=== PATIENT | female | born 1960 | race Two or more races ===

== ENCOUNTER 2018-11-26 06:34 | Inpatient (IN) | payer MEDICAID, OTHER ==
[~2018-11-26] VITALS: Ht 162.6 cm; Wt 142.9 kg
--- NOTE | 2018-11-26 06:35 | NUR ---
PT BIB RA. COMP OF HAVING LOW "BLOOD SUGAR, <20 NOTED BY RA". PT ARRIVED TO FACILITY WITH BS OF 69. MD MADE AWARE. PT AOX4. AWARE OF SAFETY NEEDS. AWAITING MD BURKS.
[2018-11-26] MEDS ORDERED: IV D5/0.45 NACL 500 ML IV ONE (07:00)
[2018-11-26 07:18] LABS: BASOPHILS % (AUTO) 0.2 % (0.0-2.0); EOSINOPHILS % (AUTO) 5.6 % (0.0-6.0); HEMATOCRIT 27 % (33-45); HEMOGLOBIN 9.1 g/dL (11.5-14.8); LYMPHOCYTES # (AUTO) 0.7 /CMM (0.8-4.8); LYMPHOCYTES % (AUTO) 12.6 % (20.0-44.0); MEAN CORPUSCULAR HGB CONC 34 g/dl (31.0-36.0); MEAN CORPUSCULAR VOLUME 93 fL (82-100); MONOCYTES # (AUTO) 0.3 /CMM (0.1-1.30); MONOCYTES % (AUTO) 5.7 % (2.0-12.0); NEUTROPHILS # (AUTO) 4.2 /CMM (1.8-8.9); NEUTROPHILS % (AUTO) 75.9 % (43.0-81.0); PLATELET COUNT (AUTO) 121 /CMM (150-450); WHITE BLOOD COUNT (AUTO) 5.6 K/uL (4.3-11.0)
[2018-11-26 07:26] LABS: APPEARANCE,URINE SL CLOUDY (CLEAR); BILIRUBIN,URINE NEGATIVE (NEGATIVE); BLOOD, URINE TRACE-INTA Ery/uL (NEGATIVE); COLOR,URINE YELLOW (YELLOW); KETONES,URINE NEGATIVE (NEGATIVE); LEUKOCYTE ESTERASE ,URINE 1+ (NEGATIVE); NITRITE, URINE POSITIVE (NEGATIVE); PROTEIN,URINE 2+ mg/dl (NEGATIVE); UGLUCOSE NEGATIVE (NEGATIVE); UROBILINOGEN,URINE 0.2 EU/dL (0.2)
[2018-11-26 07:27] LABS: CREATININE 3.9 mg/dL (0.6-1.3); POTASSIUM 3.9 mmol/L (3.5-5.1)
[2018-11-26] MEDS ORDERED: IV NS 0.9% 1,000 ML BAG IV ONE (07:30)
[2018-11-26] MEDS ORDERED: VANCOMYCIN 1 GM in IV D5W 250 ML IV ONE (07:30)
[2018-11-26] MEDS ORDERED: CEFTRIAXONE 1GM BAG (ER ONLY) 1 GM/50 ML PIGGYBACK IV ONE (07:30)
[2018-11-26 07:33] LABS: ALBUMIN 2.6 g/dL (3.4-5.0); BILIRUBIN,DIRECT 0.2 mg/dL (0.0-0.2); BILIRUBIN,TOTAL 0.3 mg/dL (0.2-1.0); TOTAL PROTEIN, SERUM 7.2 g/dL (6.4-8.2)
--- NOTE | 2018-11-26 07:38 | NUR ---
called [facility] for admission.
[2018-11-26] MEDS ORDERED: HYDR-4076 PO (07:39)
[2018-11-26] MEDS ORDERED: INSU100V11 SQ (07:39)
[2018-11-26] MEDS ORDERED: MAGN400O6 PO (07:39)
[2018-11-26] MEDS ORDERED: DOCU-141 PO (07:39)
[2018-11-26] MEDS ORDERED: NA P133E RC (07:39)
[2018-11-26] MEDS ORDERED: ERGO500014 PO (07:39)
[2018-11-26] MEDS ORDERED: FAMO-131 PO (07:39)
[2018-11-26] MEDS ORDERED: ESCI10TA PO (07:39)
[2018-11-26] MEDS ORDERED: OLME1TAB34 PO (07:39)
[2018-11-26] MEDS ORDERED: ENOX40DI SQ (07:39)
[2018-11-26] MEDS ORDERED: GLIM4TAB2 PO (07:39)
[2018-11-26] MEDS ORDERED: HUM10VIA SQ (07:39)
[2018-11-26] MEDS ORDERED: GABA-532 PO (07:39)
[2018-11-26] MEDS ORDERED: CEFTRIAXONE 1GM BAG (ER ONLY) 50 ML IV ONE (07:40)
[2018-11-26 07:43] LABS: BACTERIA,URINE 2+ /HPF (None Seen)
--- NOTE | 2018-11-26 08:00 | NUR ---
BS CHECEKED 59, DR. JIMENEZ MADE AWARE AND ORDERED D10 IV, STOP D5 1/2 NS.
--- NOTE | 2018-11-26 08:02 | NUR ---
CALLED NURSING SANITATION OFFICER FOR [facility]
--- NOTE | 2018-11-26 08:21 | NUR ---
SPOKE WITH JORDAN LOGISTICIAN REGARDING ADMISSION
[2018-11-26] MEDS ORDERED: DEXTROSE 10% IN WATER 250 ML BAG IV ONE (08:30)
[2018-11-26] MEDS ORDERED: Sodium Chloride 154 MEQ in IV 10% DEXTROSE 1,000 ML IV PRN (08:30)
--- NOTE | 2018-11-26 08:30 | NUR ---
BED CHANGED TO
--- NOTE | 2018-11-26 08:41 | NUR ---
PAGED DR PRO FOR ADMISSION
--- NOTE | 2018-11-26 08:45 | NUR ---
BS CHECEKED 60, DR. JIMENEZ MADE AWARE.
--- NOTE | 2018-11-26 09:21 | NUR ---
PAGED DR PRO, X2
--- NOTE | 2018-11-26 09:41 | NUR ---
PAGED DR PRO X3
--- NOTE | 2018-11-26 09:48 | NUR ---
YENIFER POLANCO SKATING RINK MANAGER TO ADMIT D/T NO RESPONSE FROM DR PRO FOR OVER AN HOUR, PER DR JIMENEZ. SHERRI AT BEDSIDE
--- NOTE | 2018-11-26 10:16 | NUR ---
transferred patient to [facility] to room 208-2. Bhavani home care manager rn and received the patient for afsaneh. In no apparent distress noted.
[2018-11-26] MEDS ORDERED: ACETAMINOPHEN 325 MG TABLET PO PRN (11:00)
[2018-11-26] MEDS: DOCUSATE SODIUM 100 MG CAPSULE PO SCH ×2 (11:00→17:00)
[2018-11-26] MEDS ORDERED: DEXTROSE 50%-WATER 50 ML DISP.SYRIN IV PRN (11:00)
[2018-11-26] MEDS ORDERED: MAGNESIUM HYDROXIDE 30 ML UDC PO PRN (11:00)
[2018-11-26] MEDS ORDERED: CLONIDINE HCL 0.1 MG TABLET PO PRN (11:00)
[2018-11-26] MEDS ORDERED: ENOXAPARIN SODIUM 40 MG/0.4 ML DISP.SYRIN SQ SCH (11:00)
[2018-11-26 11:21] VITALS: BP 150/79
[2018-11-26] MEDS: ESCITALOPRAM OXALATE (10 MG) 10 MG TABLET PO SCH (11:39)
[2018-11-26] MEDS: FAMOTIDINE (20 MG) 20 MG TABLET PO SCH ×2 (11:39→21:21)
[2018-11-26] MEDS: GABAPENTIN 100 MG CAPSULE PO SCH ×3 (11:40→17:03)
[2018-11-26] MEDS: AMLODIPINE BESYLATE 10 MG TABLET PO SCH (11:41)
[2018-11-26] MEDS: hydrALAZINE HCL 25 MG TABLET PO SCH (11:41)
[2018-11-26] MEDS: HEPARIN SODIUM, PORCINE 5000 UNITS/1 ML VIAL SQ SCH ×2 (11:43→21:26)
[2018-11-26] MEDS: IV D5/0.45 NACL 1,000 ML IV PRN (11:59)
[2018-11-26] MEDS: BLOOD SUGAR DIAGNOSTIC 1 EACH STRIP IN SCH ×3 (12:07→21:21)
[2018-11-26] MEDS: INSULIN REGULAR, HUMAN 100 UNIT/ML 3 ML VIAL SQ PRN (12:13)
[2018-11-26 16:08] VITALS: BP 129/56
--- NOTE | 2018-11-26 17:09 | NUR ---
MS/RN NOTE BLOOD SUGAR 44. ORANGE JUICE GIVEN. WILL CHECK AGAIN.
--- NOTE | 2018-11-26 17:30 | NUR ---
MS/RN NOTE BLOOD SUGAR IS 93. THE PATIENT STARTED TO EAT DINNER.
--- NOTE | 2018-11-26 18:22 | NUR ---
MS/RN CLOSING NOTE THE PATIENT ALERT AND ORIENTED X4. IN ROOM AIR AND OXYGEN SATURATION IN ROOM AIR AT 97%. DENIES PAIN. PATIENT IN NO APPARENT DISTRESS. LAC G 20 PATENT AND IV FLUID INFUSING WITH NO S/S INFILTRATION. CHRISTINE CATH DRAINING FREELY. NO BLADDER DISTENSION NOTED. BED LOW AND LOCKED. SIDE RAILS UP X3. CALL LIGHT WITHIN REACH. WILL ENDORSE TO FIRE OFFICIAL.
[2018-11-26 19:00] VITALS: BP 136/64
--- NOTE | 2018-11-26 19:25 | NUR ---
MS RN OPENING NOTES: RECEIVED PT ON ROOM AIR AND IS IN HIGH TOTH'S POSITION. PT A/OX4 WITH 3 FAMILY MEMBERS AT BEDSIDE. PT REQUESTING TO HAVE BLOOD SUGAR CHECKED AT THIS TIME. NO SOB NOTED. NO S/S OF DISTRESS. PT HAS IV AND IS BEING INFUSED WITH IV D51/2 NS AT 100ML/HR. PT HAS CHRISTINE CATH AND IS ATTACHED TO DRAINAGE BAG WITH YELLOW URINE DRAINING. BED KEPT IN LOW, LOCKED POSITION, AND SIDE RAILS X2UP. WILL CONTINUE TO MONITOR PT.
--- NOTE | 2018-11-26 22:00 | NUR ---
MS RN NOTES: PT OFFERED BED BATH. PT SAID SHE WOULD LIKE IT AT A LATER TIME.
[2018-11-27] VITALS (9 sets, daily range): BP systolic 131–157; BP diastolic 56–73
[2018-11-27] MEDS: IV D5/0.45 NACL 1,000 ML IV PRN ×2 (02:13→17:08)
--- NOTE | 2018-11-27 03:39 | NUR ---
MS RN NOTES: PT REQUESTED TO HAVE BLOOD SUGAR CHECKED AT THIS TIME AFTER BEING REPOSITIONED.
[2018-11-27] MEDS: BLOOD SUGAR DIAGNOSTIC 1 EACH STRIP IN SCH ×3 (06:30→18:43)
[2018-11-27 06:50] LABS: BASOPHILS % (AUTO) 0.6 % (0.0-2.0); EOSINOPHILS % (AUTO) 7.5 % (0.0-6.0); HEMATOCRIT 23 % (33-45); HEMOGLOBIN 7.8 g/dL (11.5-14.8); LYMPHOCYTES # (AUTO) 1.7 /CMM (0.8-4.8); LYMPHOCYTES % (AUTO) 31.7 % (20.0-44.0); MEAN CORPUSCULAR HGB CONC 34 g/dl (31.0-36.0); MEAN CORPUSCULAR VOLUME 93 fL (82-100); MONOCYTES # (AUTO) 0.4 /CMM (0.1-1.30); NEUTROPHILS # (AUTO) 2.8 /CMM (1.8-8.9); NEUTROPHILS % (AUTO) 52.2 % (43.0-81.0); PLATELET COUNT (AUTO) 107 /CMM (150-450); RED BLOOD CELL COUNT(AUTO) 2.49 MIL/uL (4.0-5.2); WHITE BLOOD COUNT (AUTO) 5.4 K/uL (4.3-11.0)
--- NOTE | 2018-11-27 06:57 | NUR ---
MS RN NOTES: PT OFFERED BED BATH AGAIN THIS AM. PT DOES NOT WANT IT AT THIS TIME. WOULD LIKE IT AT A LATER TIME DURING THE DAY.
[2018-11-27 06:59] LABS: ALBUMIN 2.1 g/dL (3.4-5.0); BILIRUBIN,TOTAL 0.3 mg/dL (0.2-1.0); CALCIUM, SERUM 7.5 mg/dL (8.5-10.1); CREATININE 4.1 mg/dL (0.6-1.3); POTASSIUM 4.9 mmol/L (3.5-5.1); TOTAL PROTEIN, SERUM 6.2 g/dL (6.4-8.2)
[2018-11-27] MEDS ORDERED: CEFTRIAXONE 1 G in IV D5W 50 ML IV SCH (07:00)
--- NOTE | 2018-11-27 07:21 | NUR ---
MS RN CLOSING NOTES: ALL NEEDS WERE ATTENDED AND ANTICIPATED FOR. PT KEPT CLEAN, DRY, AND COMFORTABLE. PT ASLEEP AT THIS TIME. PT HAS IV AND IS BEING INFUSED WITH IV D51/2 NS AT 100ML/HR. BLOOD SUGAR THIS AM WAS 120. JUICES AT BEDSIDE. PT HAS CHRISTINE CATH AND IS ATTACHED TO DRAINAGE BAG WITH YELLOW URINE DRAINING. OUTPUT WAS 875ML. BED KEPT IN LOW, LOCKED POSITION, AND HIGH TOTH'S POSITION. ENDORSED TO AM NURSE FOR RENATO.
[2018-11-27] MEDS: AMLODIPINE BESYLATE 10 MG TABLET PO SCH (08:24)
[2018-11-27] MEDS: ESCITALOPRAM OXALATE (10 MG) 10 MG TABLET PO SCH (08:25)
[2018-11-27] MEDS: GABAPENTIN 100 MG CAPSULE PO SCH ×3 (08:25→16:35)
[2018-11-27] MEDS: hydrALAZINE HCL 25 MG TABLET PO SCH (08:25)
[2018-11-27] MEDS: DOCUSATE SODIUM 100 MG CAPSULE PO SCH ×2 (08:25→16:35)
[2018-11-27] MEDS: HEPARIN SODIUM, PORCINE 5000 UNITS/1 ML VIAL SQ SCH (08:32)
[2018-11-27] MEDS ORDERED: CEPH-570 PO (08:38)
[2018-11-27] MEDS ORDERED: LOSARTAN/HCTZ 50-12.5MG/ 1 EA TABLET PO SCH (09:00)
--- NOTE | 2018-11-27 16:50 | NUR ---
Patient is alert,current resides at [facility]. [place] spring encaser arranged for transfer back to [facility] today, knot picker cloth eta 7:45pm. trip# [phone] Jayaureliano. Family aware and agreed dc plan per nurse Addendum: 11/27/18 at 1652 by NATHAN MENSAH RN Amended: Links added.
--- NOTE | 2018-11-27 18:33 | NUR ---
MS/RN CLOSING NOTE THE PATIENT ALERT AND ORIENTED X4. IN ROOM AIR AND DENIES SOB. RESPIRATION REGULAR AND UNLABORED. OXYGEN SATURATION IN ROOM AIR AT 96%. DENIES PAIN AT THIS TIME. RFA G 18 PATENT AND D5 1/2 NORMAL SALINE INFUSING AT 100ML/HR AND NO S/S INFILTRATION NOTED. BED LOW AND LOCKED. SIDE RAILS UP X3. CALL LIGHT WITHIN REACH. WILL ENDORSE TO NIGHT SHITF.
--- NOTE | 2018-11-27 18:36 | NUR ---
MS/RN NOTE DISCHARGE EDUCATION IS PROVIDED TO THE PATIENT AND SHE VERBALIZED UNDERSTANDING. DAUGHTER WOODY IS AWARE.
--- NOTE | 2018-11-27 18:52 | NUR ---
MS/RN NOTE BLOOD SUGAR IS 232. NO INSULIN COVERAGE GIVEN PER PATIENT REQUEST.
--- NOTE | 2018-11-27 19:45 | NUR ---
REPORT GIVEN TO THE SHALLOT PACKER AT [facility] INFORMED HIM THAT I WOULD DO HER HS BLOOD SUGAR AND GIVE HER HER COVERAGE. PATIENT IS ALERT AND ORIENTATED PLAYING A GAME ON HER NOTE PAD. SKIN WARM AND DRY SMILING AND IN GOOD SPIRITS.
[2018-11-27] MEDS: INSULIN REGULAR, HUMAN 100 UNIT/ML 3 ML VIAL SQ PRN (20:05)
--- NOTE | 2018-11-27 21:15 | NUR ---
DISCHARGE NOTES: AMBULANCE HERE TO P/U PATIENT AND TRANSFER TO [facility] ALERT AND ORIENTATED SPEECH CLEAR BLOOD SUGAR AT 8PM WAS 264 6 UNITS INSULIN GIVEN PER SCALE. NOTE PAD TAILINGS DAM PUMPER PHONE AND COLOGNE PLACED IN TUB AND GIVEN TO THE DRIVERS.
[2018-11-28] MEDS ORDERED: ERGOCALCIFEROL (VITAMIN D 2) 50,000 UNIT CAPSULE PO SCH (11:00)
== END 2018-11-27 21:15 | DRG 420 ==
LOC: ER 06:37 → MEDSG2 08:59
PROVIDERS: ADMIT Internal Medicine; ATTEND Internal Medicine
PROC: 30233N1 Transfusion of Nonautologous Red Blood Cells into Peripheral Vein, Percutaneous Approach (ICD-10-PCS; principal; 2018-11-27)
DX: E11.649 Type 2 diabetes mellitus with hypoglycemia without coma (principal); G93.41 Metabolic encephalopathy; N18.4 Chronic kidney disease, stage 4 (severe); E11.22 Type 2 diabetes mellitus with diabetic chronic kidney disease; I12.9 Hypertensive chronic kidney disease with stage 1 through stage 4 chronic kidney disease, or unspecified chronic kidney disease; N39.0 Urinary tract infection, site not specified; E78.5 Hyperlipidemia, unspecified; E66.9 Obesity, unspecified; K21.9 Gastro-esophageal reflux disease without esophagitis; Z68.43 Body mass index [BMI] 50.0-59.9, adult; Z79.4 Long term (current) use of insulin; B95.62 Methicillin resistant Staphylococcus aureus infection as the cause of diseases classified elsewhere; Z74.01 Bed confinement status; E44.1 Mild protein-calorie malnutrition; D63.1 Anemia in chronic kidney disease
CPT/HCPCS: 36415; 71045-TC; 80048-TC; 80053-TC; 80076-TC; 81000-TC; 82962-TC; 83605-TC; 84484-TC; 85025-TC; 85730-TC; 86850-TC; 86921-TC; 87040-TC; 87081-TC; 87086-TC; G0378; J0696; J1644; J1815; J3370; J3490; J7030; J7050; J7060; P9016-BL

== ENCOUNTER 2018-12-02 09:13 | Inpatient (IN) | payer MEDICAID ==
[~2018-12-02] VITALS: Ht 165.1 cm; Wt 135.2 kg
[2018-12-02] VITALS (24 sets, daily range): BP systolic 93–132; BP diastolic 41–68
[~2018-12-02 09:13] MED LIST: CEPH-570 PO; DOCU-141 PO; ENOX40DI SQ; ERGO500014 PO; ESCI10TA PO; FAMO-131 PO; GABA-532 PO; HYDR-4076 PO; INSU100V11 SQ; MAGN400O6 PO; NA P133E RC; OLME1TAB34 PO
--- NOTE | 2018-12-02 09:25 | NUR ---
LABS DRAWNED AND URINE SPECIMEN COLLECTED AND SENT TO LAB.
[2018-12-02 09:28] LABS: BASOPHILS # (AUTO) 0.1 /CMM (0.0-0.2); EOSINOPHILS % (AUTO) 6.2 % (0.0-6.0); HEMATOCRIT 28 % (33-45); HEMOGLOBIN 9.2 g/dL (11.5-14.8); LYMPHOCYTES # (AUTO) 1.6 /CMM (0.8-4.8); LYMPHOCYTES % (AUTO) 24.1 % (20.0-44.0); MEAN CORPUSCULAR HGB CONC 33 g/dl (31.0-36.0); MEAN CORPUSCULAR VOLUME 94 fL (82-100); MONOCYTES # (AUTO) 0.6 /CMM (0.1-1.30); MONOCYTES % (AUTO) 8.8 % (2.0-12.0); NEUTROPHILS # (AUTO) 4.1 /CMM (1.8-8.9); NEUTROPHILS % (AUTO) 59.9 % (43.0-81.0); PLATELET COUNT (AUTO) 181 /CMM (150-450); RED BLOOD CELL COUNT(AUTO) 2.97 MIL/uL (4.0-5.2); WHITE BLOOD COUNT (AUTO) 6.8 K/uL (4.3-11.0)
[2018-12-02] MEDS ORDERED: MEROPENEM 1 G in IV NS 0.9% 100 ML IV ONE (09:30)
[2018-12-02] MEDS ORDERED: IV NS 0.9% 1,000 ML BAG IV ONE (09:30)
--- NOTE | 2018-12-02 09:30 | NUR ---
MAYUR RA 102 from [facility] ALOC "Apparently AA usually LKWT was yesterday today not responding as much [id number]-178". RR is even and unlabored with and noted. Skin is warm and dry. came in with warren catheter in place. Placed on the monitor. Dr Olvera at BS for eval.
[2018-12-02] MEDS ORDERED: ACET-868 PO (09:42)
[2018-12-02] MEDS ORDERED: CEPH-570 PO (09:42)
[2018-12-02] MEDS ORDERED: BISA10SU8 RC (09:42)
[2018-12-02] MEDS ORDERED: HYDR-4384 PO (09:42)
[2018-12-02] MEDS ORDERED: AMIN30LI2 PO (09:42)
[2018-12-02] MEDS ORDERED: INSU100V7 SQ (09:42)
[2018-12-02] MEDS ORDERED: MORP15TA7 PO (09:42)
[2018-12-02] MEDS ORDERED: GABA-534 PO (09:42)
[2018-12-02 09:44] LABS: APPEARANCE,URINE TURBID (CLEAR); BILIRUBIN,URINE NEGATIVE (NEGATIVE); BLOOD, URINE 1+ Ery/uL (NEGATIVE); COLOR,URINE YELLOW (YELLOW); KETONES,URINE NEGATIVE (NEGATIVE); LEUKOCYTE ESTERASE ,URINE 3+ (NEGATIVE); NITRITE, URINE NEGATIVE (NEGATIVE); PROTEIN,URINE 2+ mg/dl (NEGATIVE); UGLUCOSE NEGATIVE (NEGATIVE); UROBILINOGEN,URINE 0.2 EU/dL (0.2)
--- NOTE | 2018-12-02 09:46 | NUR ---
RADIOLOGY AT BEDSIDE FOR XRAY.
[2018-12-02 09:53] LABS: ALBUMIN 2.5 g/dL (3.4-5.0); BILIRUBIN,DIRECT 0.1 mg/dL (0.0-0.2); BILIRUBIN,TOTAL 0.4 mg/dL (0.2-1.0); CREATININE 5.9 mg/dL (0.6-1.3); TOTAL PROTEIN, SERUM 7.8 g/dL (6.4-8.2)
[2018-12-02 09:56] LABS: POTASSIUM 6.4 mmol/L (3.5-5.1)
[2018-12-02] MEDS ORDERED: DEXTROSE 50%-WATER 50 ML DISP.SYRIN IV ONE (10:00)
[2018-12-02] MEDS ORDERED: SODIUM BICARBONATE SYR 50 MEQ/50 ML DISP.SYRIN IV ONE (10:00)
[2018-12-02] MEDS ORDERED: INSULIN REGULAR, HUMAN 100 UNIT/ML 10 ML VIAL IV ONE (10:00)
[2018-12-02] MEDS ORDERED: ALBUTEROL FS 2.5 MG/3 ML VIAL.NEB NEB ONE (10:00)
[2018-12-02] MEDS ORDERED: INSULIN REGULAR, HUMAN 100 UNIT/ML 10 ML VIAL ONE (10:05)
[2018-12-02] MEDS ORDERED: DEXTROSE 50%-WATER 50 ML DISP.SYRIN ONE (10:05)
[2018-12-02] MEDS ORDERED: SODIUM BICARBONATE SYR 50 MEQ/50 ML DISP.SYRIN ONE (10:05)
[2018-12-02] MEDS ORDERED: ALBUTEROL FS 2.5 MG/3 ML VIAL.NEB ONE (10:16)
[2018-12-02 10:17] LABS: BACTERIA,URINE 2+ /HPF (None Seen); COARSE GRANULAR CASTS,URINE Few /LPF (None Seen); SQUAMOUS EPITHELIAL CELL,UR Many /HPF (None Seen); WBC,URINE 21-50 /HPF (0-3)
--- NOTE | 2018-12-02 10:29 | NUR ---
PT IS WHEELED TO CT SCAN VIA [facility].
[2018-12-02 10:34] LABS: ABG OXYGEN SATURATION 95.9 % (92.0-98.5); ABG PCO2 46.6 mmHg (35.0-45.0); ABG PH 7.196 (7.350-7.450); ABG PO2 95.7 mmHg (75.0-100.0); AaDO2 172.1 mmHg; COHb 1.3 % (0.5-1.5); MetHb 0.6 % (0.0-1.5); O2Hb 94.1 % (94.0-97.0); SITE, ABG Left Radial; VENT MODE, BG NASAL CANNULA
--- NOTE | 2018-12-02 11:35 | NUR ---
DR. PRO AT BEDSIDE FOR EVAL.
--- NOTE | 2018-12-02 11:35 | NUR ---
PT IS ASSIGNED TO [facility]#: [id number]
--- NOTE | 2018-12-02 11:40 | NUR ---
GAVE REPORT TO DAVIS PHAN FOR RENATO.
--- NOTE | 2018-12-02 11:44 | NUR ---
REPORT GIVEN TO DAVIS SHEPARD FOR RENATO.
--- NOTE | 2018-12-02 11:44 | NUR ---
Magan williamson in ED - 12/02/18 at 1145 by RATNA GIVE CHRISTOFERTE 60GM VIA [place] NOW VERBAL ORDERED.
--- NOTE | 2018-12-02 11:45 | NUR ---
GIVE KAYEXELATE 60GM VIA [place] NOW VERBAL ORDERED BY DR. PRO.
[2018-12-02] MEDS ORDERED: SODIUM POLYSTYRENE SULFONATE 15 G/60 ML BOTTLE ONE ×2 (11:48→20:04)
[2018-12-02] MEDS ORDERED: DEXTROSE 50%-WATER 50 ML DISP.SYRIN IV PRN (12:00)
[2018-12-02] MEDS ORDERED: VANCOMYCIN 1.25 GM in IV D5W 500 ML IV SCH (12:00)
[2018-12-02] MEDS ORDERED: SODIUM POLYSTYRENE SULFONATE 15 G/60 ML BOTTLE RC ONE ×2 (12:00→20:00)
[2018-12-02] MEDS ORDERED: FEE PK DOSING 1 MIN EA MC ONE (12:05)
--- NOTE | 2018-12-02 12:06 | NUR ---
NEW ORDER FROM DR. PRO TO CANCEL BLOOD TRANSFUSION ORDER AND RELATED ORDER. PRIMARY NURSE MADE AWARE.
--- NOTE | 2018-12-02 12:11 | NUR ---
PT. IS OBTUNDED, PLACED HER ON BIPAP DUE TO INCREASED WOB WITH PARAMETERS BELOW PER DR. PRO: IPAP 15 EPAP 5 RATE 12 FIO2 28% 10 MG ALBUTEROL GIVEN. BREATH SOUNDS FROM DIMINISHED + WHEEZING TO EXPIRATORY WHEEZING. AUBREY @ BEDSIDE. Addendum: 12/02/18 at 1218 by KWAKU BEDOYA RT Amended: Links added.
--- NOTE | 2018-12-02 12:30 | NUR ---
RN ADMITTING NOTES: Rec'd call from [facility] RESIDENTIAL GLAZIER. Pt transferred via gurney, admitted to room 258. Pt is lethargic, arousable to tactile stimuli. Placed on BIPAP per RT, sating at 98%. SR on telemonitor. Has 2 IV line access L AC G18 & R hand G20, both flushing well w/ no s/sx of infection/infiltration noted. Skin assessment done, wound photos taken & placed in the chart. Initial wound care done. Wound care consult ordered. Pt placed on BOBBY mattress. Has IFC patent & intact, noted 100cc of yellowish UOP (bag changed to new one). BM x1 s/p kayexalate from ER. Noted Dr. Overton's orders & carried out. Family came & updated about pt status. Safety precaution in place. Bed kept low & in locked pos. Call light w/in reach. Will cont to monitor & attend pt needs.
--- NOTE | 2018-12-02 12:38 | NUR ---
PT. USED SAME BIPAP MACHINE, PLUGGED INTO RED OUTLET WITH ALARMS ON AND FUNCTIONING. AUBREY @ BEDSIDE. Addendum: 12/02/18 at 1240 by KWAKU BEDOYA RT Amended: Links added.
[2018-12-02] MEDS: NS 0.9% IV PRN ×2 (13:06→23:17)
[2018-12-02] MEDS: SODIUM ACETATE IV PRN ×2 (13:06→23:17)
[2018-12-02] MEDS: BLOOD SUGAR DIAGNOSTIC 1 EACH STRIP IN SCH ×3 (13:09→23:18)
[2018-12-02] MEDS: HEPARIN SODIUM, PORCINE 5000 UNITS/1 ML VIAL SQ SCH ×2 (13:10→23:43)
[2018-12-02] MEDS: INSULIN REGULAR, HUMAN 100 UNIT/ML 3 ML VIAL SQ PRN ×4 (13:11→23:21)
[2018-12-02] MEDS: Z GUARD REMEDY 4 OZ OINT TP PRN (17:17)
[2018-12-02 17:29] LABS: ALBUMIN 2.4 g/dL (3.4-5.0); BILIRUBIN,TOTAL 0.4 mg/dL (0.2-1.0); CALCIUM, SERUM 7.8 mg/dL (8.5-10.1); TOTAL PROTEIN, SERUM 7.3 g/dL (6.4-8.2)
[2018-12-02 17:30] LABS: APPEARANCE,URINE CLOUDY (CLEAR); BILIRUBIN,URINE NEGATIVE (NEGATIVE); BLOOD, URINE 2+ Ery/uL (NEGATIVE); COLOR,URINE YELLOW (YELLOW); KETONES,URINE NEGATIVE (NEGATIVE); LEUKOCYTE ESTERASE ,URINE NEGATIVE (NEGATIVE); NITRITE, URINE NEGATIVE (NEGATIVE); PROTEIN,URINE 2+ mg/dl (NEGATIVE); UGLUCOSE NEGATIVE (NEGATIVE); UROBILINOGEN,URINE 0.2 EU/dL (0.2)
[2018-12-02 17:39] LABS: PHOSPHORUS 9.9 mg/dL (2.5-4.9)
[2018-12-02 17:46] LABS: BACTERIA,URINE None seen /HPF (None Seen); SQUAMOUS EPITHELIAL CELL,UR Few /HPF (None Seen); WBC,URINE 0-2 /HPF (0-3)
[2018-12-02 17:47] LABS: URINE AMORPHOUS URATE Moderate /HPF (None Seen)
[2018-12-02 18:07] LABS: CREATININE, URINE 133.2 MG/DL (30.0-125.0); URINE TOTAL PROTEIN 191.3 mg/dL (0-11.9)
[2018-12-02] MEDS: INSULIN GLARGINE, 100 UNIT/ML CARTRIDGE SQ SCH (18:08)
[2018-12-02 18:31] LABS: EOSINOPHIL,URINE None Seen
--- NOTE | 2018-12-02 19:00 | NUR ---
RN CLOSINg NOTES: Pt remains lethargic, still arousable to tactile stimuli. Tolerated BIPAP settings, no SOB. Pt still SR on telemonitor. 2 IV line access L AC G18 w/ Na Acetate x 100cc/hr & R hand G20, kept patent & intact w/ no s/sx of infection/infiltration noted. FC kept patent & intact draining to BSB. Relayed latest BMP results to Dr. Overton w/ orders to give early dose of Lantus 10u that was supposedly scheduled at 10pm & give Kayexalate 60gms rectal x 1. Per MD may give insulin sliding scale even if pt is NPO. Safety precaution kept in place. Bed kept low & in locked pos. Call light w/in reach. Endorsed to PM RN for RENATO.
--- NOTE | 2018-12-02 20:00 | NUR ---
SOFTWARE TEST DEVELOPER - NOTES - Pt remains lethargic, still arousable to tactile stimuli, pt yells when turned. Tolerated BIPAP settings, no SOB. Pt still SR on telemonitor. 2 IV line access L AC G18 w/ Na Acetate x 100cc/hr & R hand G20, kept patent & intact w/ no s/sx of infection/infiltration noted. FC kept patent & intact draining to BSB. Safety precaution kept in place. Bed kept low & in locked position. Call light w/in reach.
[2018-12-03] VITALS (65 sets, daily range): BP systolic 89–163; BP diastolic 39–83
[2018-12-03 05:06] LABS: BASOPHILS # (AUTO) 0.1 /CMM (0.0-0.2); BASOPHILS % (AUTO) 0.8 % (0.0-2.0); EOSINOPHILS % (AUTO) 4.7 % (0.0-6.0); HEMATOCRIT 27 % (33-45); HEMOGLOBIN 8.9 g/dL (11.5-14.8); LYMPHOCYTES # (AUTO) 1.2 /CMM (0.8-4.8); LYMPHOCYTES % (AUTO) 17.7 % (20.0-44.0); MEAN CORPUSCULAR HGB CONC 33 g/dl (31.0-36.0); MEAN CORPUSCULAR VOLUME 94 fL (82-100); MONOCYTES # (AUTO) 0.6 /CMM (0.1-1.30); MONOCYTES % (AUTO) 8.8 % (2.0-12.0); NEUTROPHILS # (AUTO) 4.5 /CMM (1.8-8.9); PLATELET COUNT (AUTO) 167 /CMM (150-450); RED BLOOD CELL COUNT(AUTO) 2.86 MIL/uL (4.0-5.2); WHITE BLOOD COUNT (AUTO) 6.6 K/uL (4.3-11.0)
[2018-12-03 05:07] LABS: ALBUMIN 2.4 g/dL (3.4-5.0); BILIRUBIN,TOTAL 0.4 mg/dL (0.2-1.0); CALCIUM, SERUM 7.9 mg/dL (8.5-10.1); CREATININE 6.1 mg/dL (0.6-1.3); MAGNESIUM 2.1 mg/dL (1.8-2.4); TOTAL PROTEIN, SERUM 7.3 g/dL (6.4-8.2)
[2018-12-03 05:41] LABS: POTASSIUM 6.3 mmol/L (3.5-5.1)
--- NOTE | 2018-12-03 05:51 | NUR ---
RT PT RECEIVED ON BIPAP WITH NOTED SETTING. PT TOLERATING SETTING WELL. NO SOB OR RESP DISTRESS NOTED ON SHIFT. PT STILL REMAINS ALTERED. CONTINUE CURRENT CARE PLAN AND MONITOR FOR ANY CHANGES. Addendum: 12/03/18 at 0552 by YUE BRITT RT Amended: Links added.
[2018-12-03 06:13] LABS: PHOSPHORUS 10.6 mg/dL (2.5-4.9)
[2018-12-03] MEDS: BLOOD SUGAR DIAGNOSTIC 1 EACH STRIP IN SCH ×3 (06:26→17:43)
[2018-12-03] MEDS ORDERED: FUROSEMIDE 40 MG/4 ML VIAL IV ONE (06:30)
[2018-12-03] MEDS ORDERED: IV 1/2NS 1000 ML 500 ML IV ONE (06:30)
[2018-12-03 06:33] LABS: ABG BASE EXCESS -11.6 mmol/L; ABG OXYGEN SATURATION 95.4 % (92.0-98.5); ABG PCO2 52.4 mmHg (35.0-45.0); ABG PH 7.133 (7.350-7.450); ABG PO2 89.3 mmHg (75.0-100.0); AaDO2 48.5 mmHg; COHb 0.3 % (0.5-1.5); MetHb 0.9 % (0.0-1.5); O2Hb 94.3 % (94.0-97.0); PEEP,BG 5 cm H2O; SITE, ABG Left Radial; VENT MODE, BG ST 15/5 R12 28%
--- NOTE | 2018-12-03 06:39 | NUR ---
dr sierra notified of critical lab values, new orders received and carried out. bipap rate changed from 12 to 20 for high co2 on abg
--- NOTE | 2018-12-03 08:27 | NUR ---
Dr. Hobbs is here to see pt, new abg obtained. bi-pap rate changed to 25/5 back up of 20. will obtain new abg in 45 min.
[2018-12-03 08:30] LABS: ABG BASE EXCESS -11.9 mmol/L; ABG OXYGEN SATURATION 94.2 % (92.0-98.5); ABG PCO2 51.3 mmHg (35.0-45.0); ABG PH 7.132 (7.350-7.450); ABG PO2 80.7 mmHg (75.0-100.0); AaDO2 58.4 mmHg; COHb 0.6 % (0.5-1.5); MetHb 0.7 % (0.0-1.5); SITE, ABG Right Radial
[2018-12-03 09:23] LABS: ABG BASE EXCESS -10.9 mmol/L; ABG OXYGEN SATURATION 95.7 % (92.0-98.5); ABG PCO2 53.8 mmHg (35.0-45.0); ABG PH 7.137 (7.350-7.450); ABG PO2 91.9 mmHg (75.0-100.0); AaDO2 44.3 mmHg; COHb 0.3 % (0.5-1.5); MetHb 0.6 % (0.0-1.5); O2Hb 94.8 % (94.0-97.0); SITE, ABG Left Radial
--- NOTE | 2018-12-03 09:42 | NUR ---
WOUND CARE CONSULT: PT UNSTABLE AT THIS TIME AND WILL BE INTUBATED PER NURSING STAFF. WILL SEE PT PT CONDITION PERMITS. [facility] BED ON ORDER. CURRENT AMINA SCORE IS 9.
--- NOTE | 2018-12-03 09:50 | NUR ---
FAMILY NOTIFIED ABOUT NEED FOR INTUBATION, CONSENT FOR PICC LINE OBTAINED VIA PHONE FROM DAUGHTER EDUARDA.
--- NOTE | 2018-12-03 10:05 | NUR ---
PT INTUBATED AT [address] SANDERS 30 MG OF ETOMIDATE USED. STAT CXR ORDERED.
--- NOTE | 2018-12-03 10:05 | NUR ---
RT DR. ANTUNEZ UNABLE TO INTUBATED SO ANESTHESIA MD WAS CALLED. PT INTUBATED BY ANESTHESIA MD WITH A 7.5 ETT SECURED AT 23CM AT THE LIP LINE. EQUAL BILATERAL BREATHE SOUNDS AND CHEST RISE NOTED. POSITIVE CO2 COLOR CHANGE. CREDIT PORTFOLIO ADVISOR CUFF PRESSURE NOTED. VENT ALARMS ARE SET AND AUDIBLE WITH BVM BY BEDSIDE. VENT IS PLUGGED INTO RED OUTLET. SX'D MODERATE THICK PALE YELLOW SECRETIONS. PT APPEARS TO BE COMFORTABLE AT THIS TIME, WILL CONTINUE TO MONITOR. Addendum: 12/03/18 at 1034 by WILLIAN MARCOS RT Amended: Links added.
--- NOTE | 2018-12-03 10:15 | NUR ---
ETT PLACEMENT CONFIRMED BY CXR. T.7 AT 23 CM. VENT SETTINGS AC 18, 650, 100%, PEEP OF 5. OGT # 16. PLACED, CONFIRMED BY CXR.
[2018-12-03] MEDS: ALBUTEROL HALF STRENGTH 1.25 MG/3 ML VIAL.NEB NEB SCH ×5 (10:30→22:52)
[2018-12-03] MEDS ORDERED: PROPOFOL 100 ML IV PRN (10:30)
[2018-12-03] MEDS ORDERED: SODIUM ACETATE IV PRN ×2 (10:30→11:00)
[2018-12-03] MEDS ORDERED: NS 0.9% IV PRN ×2 (10:30→11:00)
[2018-12-03] MEDS ORDERED: IV NS 0.9% 500 ML IV ONE (11:00)
--- NOTE | 2018-12-03 11:00 | NUR ---
RECEIVED CARE OF PATIENT FROM RN MICHEL. PATIENT INTUBATED THIS AM AROUND 10AM WITH VENT SETTINGS ORDERED AND TOLERATING WELL. ETT WITH OGT PLACED. PATIENT ALTERED AND MOVES TO LOCALIZED PAIN NO S/S DISCOMFORT AT THIS TIME; WILL HOLD OFF ON DIPRIVAN PATIENT TOLERATING VENT AND NO S/S PAIN. CHRISTINE CATH IN PLACE PER RN MINIMAL OUTPUT AND WITH BLADDER SCAN NO MORE THAN 40 MLS NOTED IN BLADDER; DR STEEN AWARE. PER FAMILY PATIENT HAD A SACRAL WOUND THAT SHE RECEIVED BEING IN REHAB; PENDING WOUND CONSULT. IV SITES C/D/I/P WITH IVF RUNNING PER ORDER; AWAITING UPDATED IVF DELIVERY. PENDING DR ACOSTA CONSULT. FAMILY AT BEDSIDE AND UDPATED ON PATIENT CONDITION. SAFETY, SKIN, ASPIRATION PRECAUTIONS IN PLACE AND MONITORING Addendum: 12/03/18 at 1213 by DOUG CARMONA RN ETT 7.5
[2018-12-03] MEDS ORDERED: ETOMIDATE 2 MG/ML VIAL IV ONE (11:03)
[2018-12-03] MEDS: PANTOPRAZOLE 40 MG VIAL IV SCH (11:07)
--- NOTE | 2018-12-03 11:29 | NUR ---
DR ACOSTA AT BEDSIDE. UPDATED ON PATIENT LABS, VS, CONDITION
[2018-12-03 11:32] LABS: ABG BASE EXCESS -8.9 mmol/L; ABG OXYGEN SATURATION 99.1 % (92.0-98.5); ABG PCO2 35.9 mmHg (35.0-45.0); ABG PO2 466.7 mmHg (75.0-100.0); AaDO2 210.4 mmHg; COHb 0.3 % (0.5-1.5); MetHb 0.7 % (0.0-1.5); O2Hb 98.1 % (94.0-97.0); PEEP,BG 5 cm H2O; SITE, ABG Right Radial; VT, ABG 650 mL
[2018-12-03] MEDS: Sodium Acetate 100 MEQ in IV D5W 1,000 ML IV PRN ×2 (11:35→23:09)
[2018-12-03] MEDS: INSULIN REGULAR, HUMAN 100 UNIT/ML 3 ML VIAL SQ PRN (11:53)
[2018-12-03] MEDS: HEPARIN SODIUM, PORCINE 5000 UNITS/1 ML VIAL SQ SCH (12:00)
[2018-12-03] MEDS ORDERED: EPOETIN ALFA (10,000 UNIT) 10,000 UNIT/ML VIAL IV ONE (12:00)
--- NOTE | 2018-12-03 12:04 | NUR ---
PER DR ACOSTA PATIENT IS TO HAVE HD STARTED AND HD CATHETER PLACED BY DR JEFFERY; CALLED MD AND WILL PUT IN TODAY. CONSENTS ALL SIGNED BY FAMILY AND MD AT BEDSIDE. MEDICAL RECORDS REQUESTED TO PATIENT PRIMARY MD OFFICE PER DR ACOSTA REQUEST AND FAXED. CHRIS CANNON AT BEDSIDE FOR PICC LINE PLACEMENT
[2018-12-03] MEDS: SEVELAMER CARBONATE 0.8 GM POWD.PACK GT SCH ×2 (12:52→17:44)
[2018-12-03] MEDS ORDERED: BUMETANIDE INJ 4 MG in IV NS 0.9% 24 ML IV ONE (13:00)
[2018-12-03] MEDS ORDERED: LIDOCAINE 1% INJ 50 ML MDV IJ ONE (13:30)
--- NOTE | 2018-12-03 18:14 | NUR ---
DR JEFFERY AT BEDSIDE FOR HD CATH INSERTION. SPEAKING WITH FAMILY
--- NOTE | 2018-12-03 18:30 | NUR ---
PATIENT TRANSFERED TO [facility] WITHOUT COMPLICATIONS. BUTTOCK/POSTERIOR BUTTOCK DTI/EXCORIATION/BLISTERING SEEMS TO BE A BEDPAN SHAPE AND CIRCULAR NOTED ON ADMISSION. SKIN CARE FREQUENTLY CHECKED AND COMPLETED TO KEEP CLEAN AND DRY. CARE ENDORSED TO MICHEL FOR RENATO. PATIENT CONTINUES WITHOUT DIPRIVAN. MOVES AND OPENS EYES TO LOCALIZED PAIN STILL NOT FOLLOWING COMMANDS.
--- NOTE | 2018-12-03 19:30 | NUR ---
HAND STRAIGHTENER INITIAL SHIFT NOTES RECEIVED PATIENT IN BED, ASLEEP, EYES CLOSED, LETHARGIC, OPENS EYES TO PAINFUL STIMULI. PATIENT ORALLY INTUBATED, ON MECHANICAL VENTILATION AT PRESCRIBED SETTINGS, TOLERATING WELL, FREE FROM ANY S/S OF RESPIRATORY DISTRESS. BILATERAL SOFT WRIST RESTRAINTS IN PLACE FOR SAFETY DUE TO RISK OF SELF EXTUBATION. BEDSIDE TUGBOAT CAPTAIN SHOWS SINUS RHYTHM, WITH OCCASIONAL PVCs, HR 74 BPM AT THIS TIME. NOTED WITH RIGHT IJ HD CATHETER, SHELLY PICC, AND RIGHT HAND PERIPHERAL IV. ALL PERIPHERAL IVs FLUSHED WITH SALINE, PATENT AND INTACT, SITES FREE FROM ANY S/S OF INFILTRATION OR PHLEBITIS. CHRISTINE CATHETER PATENT AND INTACT, DRAINING CLEAR YELLOW URINE VIA GRAVITY. NOTED WITH OGT, PATENT AND INTACT, AUSCULTATED TO VERIFY PROPER PLACEMENT. PATIENT ON BARIMAXX BED. BED IN LOWEST AND LOCKED POSITION. WILL CONTINUE TO CLOSELY MONITOR
--- NOTE | 2018-12-03 20:22 | NUR ---
RECEIVE PT INTUBATED ON VENT. PT TOLERATING VENT SETTINGS NO DISTRESS. SX'D FOR SML AMT OF THIN WHITE SECRETIONS. BS DM BILAT. ETT SUCRE, CUFF QUILLER TENDER. VENT PLUGGED INTO RED OUTLET. WILL CONTINUE TO MONITOR. Addendum: 12/03/18 at 2023 by DUSTIN MAYS RT Amended: Links added.
[2018-12-03] MEDS: INSULIN GLARGINE, 100 UNIT/ML CARTRIDGE SQ SCH (21:06)
--- NOTE | 2018-12-03 21:07 | NUR ---
REVERSE ENGINEER NOTES BLOOD SUGAR = 123. FAMILY MEMBERS AT BEDSIDE, REFUSING LONG ACTING INSULIN, STATING SHE WAS RECENTLY ADMITTED FOR BLOOD SUGAR S IN THE 20s. EXPLAINED RISKS AND CONSEQUENCES OF REFUSING PRESCRIBED MEDICATION, WITH VERBALIZATION OF UNDERSTANDING, BUT STILL STRONGLY REFUSING. ALL PERTINENT QUESTIONS ANSWERED ABLE. WILL CONTINUE TO CLOSELY MONITOR
--- NOTE | 2018-12-03 22:00 | NUR ---
WASTE MANAGEMENT SPECIALIST NOTES MULTIPLE FAMILY MEMBERS VISITING 2 AT A TIME. UPDATES GIVEN REGARDING THE PLAN OF CARE, WITH VERBALIZATION OF UNDERSTANDING. WILL CONTINUE TO CLOSELY MONITOR. ALSO, RECEIVED CALL FROM HD NURSE JA, WHO STATES SHE WILL BE AT BEDSIDE AT 2300 FOR HD
[2018-12-04] VITALS (73 sets, daily range): BP systolic 97–161; BP diastolic 41–77
[2018-12-04] MEDS: BLOOD SUGAR DIAGNOSTIC 1 EACH STRIP IN SCH ×4 (00:49→17:45)
[2018-12-04] MEDS: INSULIN REGULAR, HUMAN 100 UNIT/ML 3 ML VIAL SQ PRN ×2 (00:50→12:43)
--- NOTE | 2018-12-04 00:50 | NUR ---
DEPUTY FIRE MARSHAL NOTES HD COMPLETE, PATIENT TOLERATED WELL, VSS, 200ML OUTPUT PER HD NURSE JA. WILL CONTINUE TO CLOSELY MONITOR
[2018-12-04] MEDS: HEPARIN SODIUM, PORCINE 5000 UNITS/1 ML VIAL SQ SCH ×2 (00:51→12:43)
[2018-12-04] MEDS: ALBUTEROL HALF STRENGTH 1.25 MG/3 ML VIAL.NEB NEB SCH ×6 (02:54→23:05)
[2018-12-04 04:34] LABS: BASOPHILS % (AUTO) 0.6 % (0.0-2.0); HEMATOCRIT 23 % (33-45); LYMPHOCYTES % (AUTO) 17.3 % (20.0-44.0); MEAN CORPUSCULAR HGB CONC 34 g/dl (31.0-36.0); MEAN CORPUSCULAR VOLUME 91 fL (82-100); MONOCYTES # (AUTO) 0.4 /CMM (0.1-1.30); MONOCYTES % (AUTO) 7.4 % (2.0-12.0); NEUTROPHILS # (AUTO) 3.7 /CMM (1.8-8.9); NEUTROPHILS % (AUTO) 67.7 % (43.0-81.0); PLATELET COUNT (AUTO) 141 /CMM (150-450); RED BLOOD CELL COUNT(AUTO) 2.56 MIL/uL (4.0-5.2); WHITE BLOOD COUNT (AUTO) 5.5 K/uL (4.3-11.0)
[2018-12-04 04:52] LABS: CALCIUM, SERUM 7.2 mg/dL (8.5-10.1); CREATININE 4.7 mg/dL (0.6-1.3); POTASSIUM 4.8 mmol/L (3.5-5.1)
--- NOTE | 2018-12-04 07:00 | NUR ---
LINE SERVICE TECHNICIAN CLOSING NOTES PATIENT RESTING IN BED, APPEARS COMFORTABLE, IMPROVING MENTAL STATUS. PATIENT NOW WITH PERIODS OF WAKEFULNESS, ABLE SOMETIMES NOD YES/NO, OCCASIONALLY LIGHTLY SQUEEZING HANDS ON COMMAND. WILL ENDORSE THE PATIENT TO THE AM SHIFT NURSE FOR CONTINUITY OF CARE
[2018-12-04] MEDS: SEVELAMER CARBONATE 0.8 GM POWD.PACK GT SCH ×3 (08:00→17:39)
[2018-12-04 08:08] LABS: ABG OXYGEN SATURATION 97.6 % (92.0-98.5); ABG PCO2 40.9 mmHg (35.0-45.0); ABG PH 7.385 (7.350-7.450); ABG PO2 122.3 mmHg (75.0-100.0); AaDO2 115.9 mmHg; COHb 0.3 % (0.5-1.5); MetHb 1.2 % (0.0-1.5); O2Hb 96.1 % (94.0-97.0); PEEP,BG 5 cm H2O; SITE, ABG Right Radial; VT, ABG 650 mL
--- NOTE | 2018-12-04 08:10 | NUR ---
WOUND CARE CONSULT: PT PRESENTS WITH GENERALIZED EDEMA, MULTIPLE SCRATCH SEALS, DRY ABRASION TO RT SIDE OF BACK, INTACT DEEP TISSUE INJURY TO SACRUM WHICH EXTENDS TO BUTTOCKS, BILATERAL BUTTOCK STAGE 2 ULCERS, LEFT MIDBACK STAGE 2 ULCER, SCAB TO LEFT ANTECUBITAL AREA, ALL PRESENT ON ADMISSION. RECOMMENDATIONS MADE FOR SKIN PROTECTION AND WOUND CARE. DISCUSSED WITH NURSING STAFF. PT ON [facility] AIR BED. PT IS CURRENTLY INTUBATED. WILL SEE PRN. Lia Parra IN AGREEMENT WITH PLAN OF CARE. Addendum: 12/04/18 at 0815 by TANK CUTLER WNDNU Amended: Links added.
[2018-12-04] MEDS ORDERED: DC PROPOFOL WHEN EXTUBATED XX PRN (09:00)
[2018-12-04] MEDS: PANTOPRAZOLE 40 MG VIAL IV SCH (09:58)
[2018-12-04] MEDS: HYDROGEL DRESSING 90 GM TUBE TP SCH (09:59)
[2018-12-04] MEDS: Sodium Acetate 100 MEQ in IV D5W 1,000 ML IV PRN (09:59)
[2018-12-04] MEDS: PIPERACILLIN /TAZOBACTAM 2.25 G in IV D5W 50 ML IV SCH ×2 (09:59→17:24)
[2018-12-04] MEDS ORDERED: VANCOMYCIN 500 MG in IV D5W 100 ML IV PRN (10:00)
[2018-12-04 10:17] LABS: *SPE A/G RATIO 0.7 (0.7-1.7); *SPE ALBUMIN 2.7 g/dL (2.9-4.4); *SPE ALPHA-1-GLOBULIN 0.3 g/dL (0.0-0.4); *SPE ALPHA-2-GLOBULIN 0.9 g/dL (0.4-1.0); *SPE BETA GLOBULIN 0.7 g/dL (0.7-1.3); *SPE GLOBULIN, TOTAL 3.7 g/dL (2.2-3.9); *SPE M-SPIKE 1.3 g/dL (Not Observed); *SPEGAMMA GLOBULIN 1.8 g/dL (0.4-1.8)
[2018-12-04 10:29] LABS: ABG OXYGEN SATURATION 96.3 % (92.0-98.5); ABG PCO2 40.2 mmHg (35.0-45.0); ABG PH 7.391 (7.350-7.450); ABG PO2 96.3 mmHg (75.0-100.0); AaDO2 70.4 mmHg; COHb 0.3 % (0.5-1.5); MetHb 1.1 % (0.0-1.5); PEEP,BG 5 cm H2O; SITE, ABG Right Radial; VT, ABG 650 mL
[2018-12-04] MEDS ORDERED: VANCOMYCIN 1 GM in IV D5W 250 ML IV ONE (17:00)
--- NOTE | 2018-12-04 19:25 | NUR ---
PATIENT EXTUBATED THIS MORNING MAINTAINING SATURATION AT 100% ON 2L NASAL CANNULA. DENIES PAIN WHEN RESTING BUT C/O DISCOMFORT WITH TURNS. ALERT TO SELF, VOICE HORSE, FOLLOWING COMMANDS. DIALYSIS COMPLETED, 500 MLS REMOVED PER RADIOLOGY SUPERVISOR. SKIN PRECAUTIONS AND TREAMENT IMPLEMENTED. FAMILY AT BEDSIDE.
--- NOTE | 2018-12-04 20:00 | NUR ---
HEEL SEAT POUNDER PT RCD W/DX RESP FAIL; EXTUBATED ON O2 2L NC AT THIS TIME. NO DISTRESS NOTED. MULTIPLE FAMILY MEMBERS AT BEDSIDE EXPLAINED VISITING POLICY; FAMILY NOTED TO BE UPSET AT THIS TIME. REQUESTING WATER TO BE GIVEN TO PT; PT NOT AWAKE ENOUGH TO SWALLOW. CONTINUE TO MONITOR.
--- NOTE | 2018-12-04 21:00 | NUR ---
INTERNET SALES MANAGER MULTIPLE FAMILY MEMBERS AT BEDSIDE; REMINDED THEM OF VISITING POLICY. FAMILY REQUESTING CHAPSTICK TOLD FAMILY WE DO NOT HAVE CHAPSTICK BUT WE HAVE OTHER ITEMS THAT WE CAN USE FOR ORAL CARE AND TOLD FAMILY THEY COULD BRING CHAPSTICK IF THEY WOULD LIKE. ALSO ASKED FAMILY TO GIVE PT TIME TO REST.
[2018-12-04] MEDS: INSULIN GLARGINE, 100 UNIT/ML CARTRIDGE SQ SCH (22:00)
[2018-12-04] MEDS: IV NS 0.9% 250 ML IV PRN (22:00)
[2018-12-05] VITALS (46 sets, daily range): BP systolic 122–181; BP diastolic 33–89
--- NOTE | 2018-12-05 00:30 | NUR ---
SECURITY ASSURANCE SPECIALISTMANAGER CLIENT SUPPORT MEMBER CAME UPSET AT NURSE DEMANDING ORAL CARE AND THAT HER DAUGHTER SHOULD NOT HAVE BEEN TOLD TO BRING CHAPSTICK SHE IS ONLY A CHILD. AT THE END OF VISIT FAMILY MEMBER APOLOGIZED TO STAFF. ONCE FAMILY LEFT PT WAS ABLE TO REST ADEQUATELY. CONTINUE TO MONITOR.
[2018-12-05] MEDS: ONDANSETRON HCL/PF 4 MG/2 ML VIAL IV PRN ×2 (00:32→06:47)
[2018-12-05] MEDS: BLOOD SUGAR DIAGNOSTIC 1 EACH STRIP IN SCH ×4 (00:42→18:14)
[2018-12-05] MEDS: HEPARIN SODIUM, PORCINE 5000 UNITS/1 ML VIAL SQ SCH ×2 (00:44→12:23)
[2018-12-05] MEDS: PIPERACILLIN /TAZOBACTAM 2.25 G in IV D5W 50 ML IV SCH ×3 (02:00→18:18)
--- NOTE | 2018-12-05 03:00 | NUR ---
CHEST PAINTING LEADER PT CONTINUES TO REST COMFORTABLY. CONTINUED TO RENDER ORAL CARE.
[2018-12-05] MEDS: ALBUTEROL HALF STRENGTH 1.25 MG/3 ML VIAL.NEB NEB SCH ×6 (03:23→22:55)
[2018-12-05 04:10] LABS: BASOPHILS # (AUTO) 0.1 /CMM (0.0-0.2); BASOPHILS % (AUTO) 1.2 % (0.0-2.0); EOSINOPHILS % (AUTO) 2.3 % (0.0-6.0); HEMATOCRIT 26 % (33-45); HEMOGLOBIN 8.6 g/dL (11.5-14.8); LYMPHOCYTES # (AUTO) 1.2 /CMM (0.8-4.8); LYMPHOCYTES % (AUTO) 18.9 % (20.0-44.0); MEAN CORPUSCULAR HGB CONC 34 g/dl (31.0-36.0); MEAN CORPUSCULAR VOLUME 91 fL (82-100); MONOCYTES # (AUTO) 0.5 /CMM (0.1-1.30); MONOCYTES % (AUTO) 7.2 % (2.0-12.0); NEUTROPHILS # (AUTO) 4.5 /CMM (1.8-8.9); NEUTROPHILS % (AUTO) 70.4 % (43.0-81.0); PLATELET COUNT (AUTO) 165 /CMM (150-450); RED BLOOD CELL COUNT(AUTO) 2.81 MIL/uL (4.0-5.2); WHITE BLOOD COUNT (AUTO) 6.4 K/uL (4.3-11.0)
[2018-12-05 04:21] LABS: CALCIUM, SERUM 7.7 mg/dL (8.5-10.1); CREATININE 3.5 mg/dL (0.6-1.3); POTASSIUM 4.9 mmol/L (3.5-5.1)
[2018-12-05] MEDS: INSULIN REGULAR, HUMAN 100 UNIT/ML 3 ML VIAL SQ PRN (06:44)
--- NOTE | 2018-12-05 06:48 | NUR ---
HOG FEEDER PT MAKING GAGGING SOUNDS IF SHE WANTS TO VOMIT; ZOFRAN PRN ADMINISTERED. CONTINUE TO MONITOR.
[2018-12-05] MEDS: SEVELAMER CARBONATE 0.8 GM POWD.PACK GT SCH ×3 (08:23→18:17)
[2018-12-05] MEDS: PANTOPRAZOLE 40 MG VIAL IV SCH (08:23)
[2018-12-05] MEDS: Z GUARD REMEDY 4 OZ OINT TP PRN (08:24)
[2018-12-05] MEDS: HYDROGEL DRESSING 90 GM TUBE TP SCH (08:24)
--- NOTE | 2018-12-05 08:47 | NUR ---
OPTICAL FABRICATOR NOTE RCVD PT AWAKE AND ALERT TO SELF, ABLE TO FOLLOW COMMANDS. SR ON MONITOR. O2 VIA NC TOLERATING WELL. NO S/O DISTRESS OBSERVED. CHRISTINE TO GRAVITY DRAINING YELLOW URINE. IV SITES C/D/I/PATENT. NO S/O INFILTRATION/PHLEBITIS OBSERVED UPON FLUSHING. BEDSIDE NURSING SWALLOW EVAL DONE. PT ABLE TO TOLERATE ICE CHIPS, THIN LIQUIDS, APPLE SAUCE, JELLOW AND PUDIN WITHOUT ANY COUGHING. WILL CONTINUE TO MONITOR PT FOR SAFETY AND COMFORT. BED IN LOW AND LOCKED POSITION. CALL LIGHT WITHIN REACH. HEAD OF BED ELEVATED.
[2018-12-05] MEDS ORDERED: EPOETIN ALFA (10,000 UNIT) 10,000 UNIT/ML VIAL IV ONE ×4 (09:00→15:00)
--- NOTE | 2018-12-05 11:47 | NUR ---
AGRICULTURAL SERVICE TECHNICIAN NOTE PT'S FAMILY REQUESTING LETTER STATING THAT PT IS A NEW DIALYSIS PT. DOUGLAS TERRY CONTACTED AND STATED THAT MD IS RESPONSIBLE TO MAKE LETTER FOR PT. MD NOTES STATING PT'S DIALYSIS NEED WILL BE GIVEN TO PT'S FAMILY. SPOKE WITH NEAL MCCORMICK WHO AGREED TO GIVE PT'S FAMILY NEPHROLOGISTS NOTES. PT VERBALLY CONSENTED TO RELEASE HER MEDICAL RECORDS TO HER FAMILY.
--- NOTE | 2018-12-05 14:54 | NUR ---
PARKING ATTENDANT NOTE PT'S FAMILY REQUESTED PT'S TEMP TO BE CHECKED SINCE PT APPEAR TO BE SWEATING. TEMP CHECKED 98.5 ORAL. ROOM TEMP 76F ADJUSTED TO LOWER ROOM TEMP. PT'S FAMILY AWARE AND AGREE WITH ACTIONS TAKEN.
[2018-12-05] MEDS ORDERED: NA PHOS,M-B/NA PHOS,DI-BA 1 EA ENEMA RC PRN (15:30)
[2018-12-05] MEDS: LACTOBACILLUS RHAMNOSUS GG 1 EACH CAP.SPRINK PO SCH (18:14)
--- NOTE | 2018-12-05 19:00 | NUR ---
CUSTOM HOME INSTALLER NOTE PT REMAINS STABLE, UNDERGOING DIALYSIS AT THIS TIME. SR ON MONITOR. SHOWING NO S/O DISTRESS CONTINUES TO TOLERATE O2 VIA NC. IV SITES REMAINS C/D/I/PATENT. NO S/O INFILTRATION/PHLEBITIS OBSERVED UPON FLUSHING. CHRISTINE TO GRAVITY DRAINING YELLOW URINE. PT'S DINNER TRAY LEFT AT BEDSIDE. PER FAMILY THEY'LL FEED HER. PT'S CARE WILL BE ENDORSED TO MELTER HELPER RN FOR CONTINUITY OF CARE. BED IN LOW AND LOCKED POSITION. CALL LIGHT WITHIN REACH. HEAD OF BED ELEVATED.
--- NOTE | 2018-12-05 19:15 | NUR ---
ICU/WATCH TRAIN INSPECTOR RECEIVED REPORT FROM DAY NURSE. SEE FLOWSHEET FOR ASSESSMENT AND SKIN ISSUES WHICH ARE ADDRESSED HERE ALONG WITH THE INTERVENTIONS AND EXPECTED OUTCOMES. PT WAS TURNED AND REPOSITIONED FOR COMFORT AND CARE, WILL CONTINUE TO MONITOR THIS PT. NO ACUTE DISTRESS SEEN.HD WAS JUST FINISHED, PULLING OFF 1500.
--- NOTE | 2018-12-05 19:48 | NUR ---
ICU/LEGAL COMPLIANCE OFFICER TRANSFER ORDERS RECEIVED FOR PT TO GO TO 115-1, REPORT GIVEN TO RANDEE IN [place] FOR THIS PT. [place] NURSE WILL RESUME CARE OF THIS PT AND ASSESSMENTS.
--- NOTE | 2018-12-05 20:00 | NUR ---
[place] RN NOTE PATIENT RECEIVED IN BED WITH FAMILY AT BEDSIDE. PATIENT A/O X 4. PATIENT SATURATION 97% ON 2L NC. PATIENT DENIES SOB// CHEST PAIN, N/V/D. PATIENT EXPRESSES CONCERN ABOUT FEELING EMBARRASSED ABOUT BOWEL MOVEMENTS. RN EXPLAINED THAT THE HOSPITAL IS ONE OF THE FEW PLACES YOU SHOULD NOT FEEL SHAME, THAT IT IS A PLACE FOR HEALING. FAMILY SUPPORTIVE AND AGREES. PATIENT SR ON THE MONITOR HR 83. RN WILL CONTINUE TO MONITOR PATIENT.
[2018-12-05] MEDS: VANCOMYCIN 500 MG in IV D5W 100 ML IV PRN (20:16)
[2018-12-05] MEDS ORDERED: INSULIN GLARGINE, 100 UNIT/ML CARTRIDGE SQ SCH (22:00)
[2018-12-05] MEDS: INSULIN GLARGINE, 100 UNIT/ML CARTRIDGE SQ SCH (22:26)
--- NOTE | 2018-12-05 22:41 | NUR ---
[place] RN NOTE HOLDING SECOND ORDER OF LANTUS 10 UNITS DUE TO DUPLICATE ORDER.
[2018-12-06] VITALS: BP_SYST 142; BP_SYST 146; BP_DIAS 64; BP_DIAS 79
[2018-12-06] MEDS: INSULIN REGULAR, HUMAN 100 UNIT/ML 3 ML VIAL SQ PRN ×4 (00:16→17:54)
[2018-12-06] MEDS: BLOOD SUGAR DIAGNOSTIC 1 EACH STRIP IN SCH ×5 (00:17→23:13)
[2018-12-06] MEDS: HEPARIN SODIUM, PORCINE 5000 UNITS/1 ML VIAL SQ SCH ×2 (00:20→12:07)
[2018-12-06] MEDS: PIPERACILLIN /TAZOBACTAM 2.25 G in IV D5W 50 ML IV SCH ×4 (01:46→20:00)
[2018-12-06] MEDS: ALBUTEROL HALF STRENGTH 1.25 MG/3 ML VIAL.NEB NEB SCH ×6 (03:11→23:30)
[2018-12-06 04:00] VITALS: BP 140/71
[2018-12-06] MEDS: IV NS 0.9% 250 ML IV PRN (06:16)
[2018-12-06 06:59] LABS: CALCIUM, SERUM 7.9 mg/dL (8.5-10.1); CREATININE 3.1 mg/dL (0.6-1.3); POTASSIUM 4.5 mmol/L (3.5-5.1)
--- NOTE | 2018-12-06 07:00 | NUR ---
RN NOTE RECEIVED PT ON BED, A/OX3, ON 2L O2 N/C , RESPIRATION EVEN AND UNLABORED, NO SOB NOTED, ON TELE SR HR IN 70'S, R IJ HD CATH , R UPPER ARM PICC LINE AND R HAND IV SITE G 20 , CLEAN, DRY AND INTACT, CHRISTINE DRINING TO GRAVITY , SR UP x3, CALL LIGHT WITHIN EASY REACH, BED LOCKED AND IN LOWEST POSITION, CONTINUE TO MONITOR .
--- NOTE | 2018-12-06 07:09 | NUR ---
[place] RN NOTE REPORT GIVEN TO JN FOR RENATO.
[2018-12-06 07:11] LABS: BASOPHILS # (AUTO) 0.1 /CMM (0.0-0.2); EOSINOPHILS % (AUTO) 6.9 % (0.0-6.0); HEMATOCRIT 25 % (33-45); HEMOGLOBIN 8.4 g/dL (11.5-14.8); LYMPHOCYTES # (AUTO) 1.3 /CMM (0.8-4.8); LYMPHOCYTES % (AUTO) 21.3 % (20.0-44.0); MEAN CORPUSCULAR HGB CONC 34 g/dl (31.0-36.0); MEAN CORPUSCULAR VOLUME 91 fL (82-100); MONOCYTES # (AUTO) 0.5 /CMM (0.1-1.30); MONOCYTES % (AUTO) 7.4 % (2.0-12.0); NEUTROPHILS % (AUTO) 63.4 % (43.0-81.0); PLATELET COUNT (AUTO) 176 /CMM (150-450); WHITE BLOOD COUNT (AUTO) 6.3 K/uL (4.3-11.0)
[2018-12-06 08:00] VITALS: BP 148/67
[2018-12-06] MEDS ORDERED: PIPE2.257 IV (08:18)
[2018-12-06] MEDS ORDERED: VANC1PLA10 IV (08:18)
[2018-12-06] MEDS ORDERED: LACT1CAP72 PO (08:26)
[2018-12-06] MEDS ORDERED: HEPA50008 SQ (08:26)
[2018-12-06] MEDS: PANTOPRAZOLE 40 MG VIAL IV SCH (08:55)
[2018-12-06] MEDS: SEVELAMER CARBONATE 0.8 GM POWD.PACK GT SCH ×3 (08:55→17:53)
[2018-12-06] MEDS: LACTOBACILLUS RHAMNOSUS GG 1 EACH CAP.SPRINK PO SCH ×2 (08:55→16:32)
[2018-12-06 08:56] LABS: ABG BASE EXCESS 0.7 mmol/L; ABG PCO2 29.9 mmHg (35.0-45.0); ABG PH 7.509 (7.350-7.450); ABG PO2 100.1 mmHg (75.0-100.0); AaDO2 64.3 mmHg; MetHb 1.2 % (0.0-1.5); O2Hb 95.8 % (94.0-97.0); SITE, ABG Right Radial; VENT MODE, BG 2L N/C
[2018-12-06] MEDS: AMLODIPINE BESYLATE 10 MG TABLET PO SCH (08:56)
[2018-12-06] MEDS: HYDROGEL DRESSING 90 GM TUBE TP PRN (08:57)
[2018-12-06] MEDS: HYDROGEL DRESSING 90 GM TUBE TP SCH (08:58)
[2018-12-06] MEDS: ONDANSETRON HCL/PF 4 MG/2 ML VIAL IV PRN (10:39)
[2018-12-06 12:00] VITALS: BP 154/65
[2018-12-06] MEDS ORDERED: HYDROCODONE/APAP 5/325MG 1 EACH TABLET PO PRN ×2 (12:00)
[2018-12-06] MEDS ORDERED: BISACODYL SUPP (10 MG) 10 MG/SUPP.RECT SUPP.RECT RC PRN (12:00)
[2018-12-06] MEDS ORDERED: NA PHOS,M-B/NA PHOS,DI-BA 1 EA ENEMA RC PRN (12:00)
[2018-12-06] MEDS ORDERED: ACETAMINOPHEN 325 MG TABLET PO PRN (12:00)
[2018-12-06] MEDS ORDERED: MAGNESIUM HYDROXIDE 30 ML UDC PO PRN (12:00)
[2018-12-06] MEDS: hydrALAZINE HCL 25 MG TABLET PO SCH (12:00)
[2018-12-06] MEDS ORDERED: Medication Not On Formulary EA (Olmesartan Med/Amlodipine/Hctz (Tribenzor 40-10-25 Mg Ta PO SCH (12:00)
--- NOTE | 2018-12-06 12:00 | NUR ---
RN NOTES PT WILL RECEIVED HD TODAY, BP MED HELD AT THIS TIME .
[2018-12-06] MEDS: GABAPENTIN 300 MG CAPSULE PO SCH ×2 (12:28→16:32)
[2018-12-06] MEDS: ESCITALOPRAM OXALATE (10 MG) 10 MG TABLET PO SCH (12:29)
[2018-12-06] MEDS: PROSOURCE / PROSTAT (PYXIS) 30 ML UDC PO SCH (13:11)
[2018-12-06] MEDS ORDERED: ALTEPLASE CATHFLO 2 MG/VIAL XX ONE (14:00)
[2018-12-06 16:00] VITALS: BP 153/64
--- NOTE | 2018-12-06 16:00 | NUR ---
RN NOTES R UPPER ARM PICC LINE IS HARD TO FLUSH AND UNABLE TO DRAW BLOOD FORM THE PORTS , DR PRO NOTIFED , ORDER RECEIVED TO REPLACE PICC LINE . NURSING REFRIGERATION ENGINE OPERATOR NOTIFIED .
[2018-12-06] MEDS: DOCUSATE SODIUM 100 MG CAPSULE PO SCH (16:32)
--- NOTE | 2018-12-06 18:00 | NUR ---
RN NOTES IV ABX HELD TO BE GIVEN AFTER HD .
--- NOTE | 2018-12-06 18:00 | NUR ---
RN NOTES PT STABLE, SUPPORTIVE FAMILY AT THE BEDSIDE, CONSENT OBTAINED FOR SURGERY IN AM PER DR LANTIGUA ORDER , NO SIGNIFICANT CHANGES NOTED ON THIS SHIFT, WILL ENDOSE TO ACCOUNTING FILE CLERK NURSE FOR CONTINUITY OF CARE .
--- NOTE | 2018-12-06 19:22 | NUR ---
RN NOTES PT IS RECEIVING HD AT THIS TIME .
--- NOTE | 2018-12-06 19:46 | NUR ---
RT PT WANTS TO REST AT THE MOMENT NO SOB OR DISTRESS NOTED.
[2018-12-06 20:00] VITALS: BP 126/55
[2018-12-06] MEDS: VANCOMYCIN 500 MG in IV D5W 100 ML IV PRN (21:12)
[2018-12-06] MEDS: FAMOTIDINE (20 MG) 20 MG TABLET PO SCH (21:24)
[2018-12-06] MEDS: MORPHINE SULFATE SR 15 MG TABLET.SA PO SCH (21:24)
[2018-12-06] MEDS: INSULIN GLARGINE, 100 UNIT/ML CARTRIDGE SQ SCH (22:00)
[2018-12-07] VITALS (8 sets, daily range): BP systolic 130–176; BP diastolic 60–86
--- NOTE | 2018-12-07 | NUR ---
RN NOTES TRIPLE LUMEN PICC LINE ON RIGHT UPPER ARM, REMOVED BY PICC LINE NURSE. PICC LINE NURSE INSERTED NEW PICC LINE DOUBLE LUMEN ON SAME SITE. FLUSHES EASY WITH GOOD BLOOD RETURN. PATIENT TOLERATED PROCEDURE WELL. ORDERED CXR FOR PICC LINE PLACEMENT VERIFICATION
--- NOTE | 2018-12-07 01:00 | NUR ---
RN NOTES RELAYED CHEST XRAY TO CHAVO GONZALEZ. WITH ORDER OF MAY START USING PICC LINE ON RIGHT UPPER ARM.
[2018-12-07] MEDS: HEPARIN SODIUM, PORCINE 5000 UNITS/1 ML VIAL SQ SCH ×3 (01:38→23:05)
[2018-12-07] MEDS: PIPERACILLIN /TAZOBACTAM 2.25 G in IV D5W 50 ML IV SCH ×3 (01:41→19:49)
[2018-12-07] MEDS: ALBUTEROL HALF STRENGTH 1.25 MG/3 ML VIAL.NEB NEB SCH ×6 (03:56→23:20)
[2018-12-07] MEDS: BLOOD SUGAR DIAGNOSTIC 1 EACH STRIP IN SCH ×4 (06:06→23:02)
[2018-12-07] MEDS: INSULIN REGULAR, HUMAN 100 UNIT/ML 3 ML VIAL SQ PRN ×2 (06:10→22:07)
[2018-12-07 06:38] LABS: BASOPHILS # (AUTO) 0.1 /CMM (0.0-0.2); BASOPHILS % (AUTO) 1.8 % (0.0-2.0); EOSINOPHILS % (AUTO) 8.7 % (0.0-6.0); HEMATOCRIT 24 % (33-45); HEMOGLOBIN 7.9 g/dL (11.5-14.8); LYMPHOCYTES # (AUTO) 1.4 /CMM (0.8-4.8); LYMPHOCYTES % (AUTO) 23.6 % (20.0-44.0); MEAN CORPUSCULAR HGB CONC 34 g/dl (31.0-36.0); MEAN CORPUSCULAR VOLUME 92 fL (82-100); MONOCYTES # (AUTO) 0.5 /CMM (0.1-1.30); MONOCYTES % (AUTO) 7.6 % (2.0-12.0); NEUTROPHILS # (AUTO) 3.5 /CMM (1.8-8.9); NEUTROPHILS % (AUTO) 58.3 % (43.0-81.0); PLATELET COUNT (AUTO) 171 /CMM (150-450); RED BLOOD CELL COUNT(AUTO) 2.56 MIL/uL (4.0-5.2); WHITE BLOOD COUNT (AUTO) 6.1 K/uL (4.3-11.0)
[2018-12-07 06:40] LABS: CALCIUM, SERUM 7.8 mg/dL (8.5-10.1); CREATININE 2.9 mg/dL (0.6-1.3); POTASSIUM 4.5 mmol/L (3.5-5.1)
--- NOTE | 2018-12-07 07:20 | NUR ---
RN INITIAL NOTES RECEIVED PT AWAKE, A/OX3. ON 02 VIA NC AT 2LPM. NO SOB NOTED. DENIES ANY PAIN. HOB ELEVATED. SHELLY PICC IN PLACE. RIJ HD CATH IN PLACE. PT FOR TUNNELLED HD CATH, LEFT VS RIGHT AV ACCESS PLACEMENT TODAY. PT ON NPO. PT COMFORTABLE. WILL MONITOR.
[2018-12-07] MEDS: SEVELAMER CARBONATE 0.8 GM POWD.PACK GT SCH ×3 (08:00→17:53)
[2018-12-07] MEDS: PANTOPRAZOLE 40 MG VIAL IV SCH (08:12)
[2018-12-07] MEDS: HYDROGEL DRESSING 90 GM TUBE TP SCH (08:13)
[2018-12-07] MEDS: PROSOURCE / PROSTAT (PYXIS) 30 ML UDC PO SCH (08:16)
[2018-12-07] MEDS: DOCUSATE SODIUM 100 MG CAPSULE PO SCH ×2 (08:16→16:19)
[2018-12-07] MEDS: GABAPENTIN 300 MG CAPSULE PO SCH ×3 (08:16→17:00)
--- NOTE | 2018-12-07 08:30 | NUR ---
RN NOTES SEEN AND EXAMINED BY DR PRO. PT AWAKE, A/O. AWARE OF LAB VALUES. PT FOR TUNNELLED HD CATH PLACEMENT TODAY. PT COMFORTABLE. WILL MONITOR
[2018-12-07] MEDS ORDERED: Medication Not On Formulary EA (Olmesartan Med/Amlodipine/Hctz (Tribenzor 40-10-25 Mg Ta PO SCH (09:00)
[2018-12-07] MEDS: LACTOBACILLUS RHAMNOSUS GG 1 EACH CAP.SPRINK PO SCH ×2 (09:00→16:19)
[2018-12-07] MEDS: AMLODIPINE BESYLATE 10 MG TABLET PO SCH (09:00)
[2018-12-07] MEDS: ESCITALOPRAM OXALATE (10 MG) 10 MG TABLET PO SCH (09:00)
[2018-12-07] MEDS: hydrALAZINE HCL 25 MG TABLET PO SCH (09:00)
[2018-12-07] MEDS: MORPHINE SULFATE SR 15 MG TABLET.SA PO SCH ×2 (09:00→21:32)
[2018-12-07] MEDS ORDERED: LIDOCAINE HCL/PF 1% 30 ML SDV ONE ×2 (15:49→17:22)
[2018-12-07] MEDS ORDERED: HEPARIN SODIUM, PORCINE 1,000 UNIT/ML VIAL ONE ×2 (15:49→17:42)
[2018-12-07] MEDS ORDERED: THROMBIN (BOVINE) 20,000 UNITS SPRAY KIT TP ONE (15:49)
[2018-12-07] MEDS ORDERED: GELATIN SPONGE,ABSORBABLE 1 EA SPONGE TP ONE (15:49)
--- NOTE | 2018-12-07 16:10 | NUR ---
RN NOTES PT LEFT FOR TUNNELLED HD CATH PLACEMENT. PT A/OX3-4. ON 02 AT 2LPM VIA NC. NO SOB NOTED. DENIES ANY PAIN. LEFT IN STABLE CONDITION. FAMILY AT BEDSIDE AWARE.
[2018-12-07] MEDS ORDERED: BUPIVACAINE 0.5 % PF 150 MG/30 ML VIAL ONE (18:21)
[2018-12-07] MEDS ORDERED: HEMOSTATIC MATRIX 10 ML 1 EACH PAD MC ONE (18:23)
--- NOTE | 2018-12-07 18:44 | NUR ---
RN NOTES PT STILL IN OR FOR TUNNELLED HD CATH PLACEMENT.
[2018-12-07] MEDS ORDERED: FENTANYL PF 100MCG/2ML AMPUL ONE (19:00)
--- NOTE | 2018-12-07 19:35 | NUR ---
[employer] NOTES RECEIVED PT FROM OR NURSE. PT A/O X 4, FAMILY AT BEDSIDE. ON TELE MONITOR SR 83. ON NASAL CANNULA 5LPM NO RESPIRATORY DISTRESS NOTED. SATURATING 94%. IV ACCESS ON RIGHT CHEST WALL HD CATH AND NEW PLACE AV SHUTN AT LEFT ARM NO BLEEDING NOTED. BLOOD PRESSURE OF 176/86, CALLED DR PRO FOR ORDERS. ORDERED CLONIDINE .1MG PO Q6H SBP > 160. HEAD OF BED ELEVATED. SIDE RAILS UP. CALL LIGHT WITHIN REACH. BED ALARM ON WILL CONTINUE TO MONITOR PT CLOSELY.
[2018-12-07] MEDS ORDERED: CLONIDINE HCL 0.1 MG TABLET PO PRN (20:30)
[2018-12-07] MEDS: FAMOTIDINE (20 MG) 20 MG TABLET PO SCH (22:01)
[2018-12-07] MEDS: INSULIN GLARGINE, 100 UNIT/ML CARTRIDGE SQ SCH (22:06)
[2018-12-07] MEDS: ONDANSETRON HCL/PF 4 MG/2 ML VIAL IV PRN (22:25)
[2018-12-08] VITALS: BP_SYST 154; BP_SYST 164; BP_DIAS 78
[2018-12-08] MEDS: PIPERACILLIN /TAZOBACTAM 2.25 G in IV D5W 50 ML IV SCH ×3 (02:16→18:35)
[2018-12-08] MEDS: ALBUTEROL HALF STRENGTH 1.25 MG/3 ML VIAL.NEB NEB SCH ×5 (03:36→19:42)
[2018-12-08 04:00] VITALS: BP 157/76
[2018-12-08] MEDS: BLOOD SUGAR DIAGNOSTIC 1 EACH STRIP IN SCH ×3 (05:14→17:44)
[2018-12-08] MEDS: IV NS 0.9% 250 ML IV PRN (05:28)
[2018-12-08] MEDS: INSULIN REGULAR, HUMAN 100 UNIT/ML 3 ML VIAL SQ PRN ×2 (05:57→12:05)
--- NOTE | 2018-12-08 06:37 | NUR ---
SPINDLE SANDER NOTES NO ACUTE CHANGES NOTED DURING THE SHIFT. PROVIDED COMFORT AND SAFETY. DUE MEDS GIVEN. WILL ENDORSE TO THE AM NURSE FOR CONTINUITY OF CARE.
[2018-12-08 06:45] LABS: CALCIUM, SERUM 7.6 mg/dL (8.5-10.1); CREATININE 3.5 mg/dL (0.6-1.3)
--- NOTE | 2018-12-08 07:10 | NUR ---
MECHANIC AND WELDER NOTES RECEIVED PT ON BED ,A/Ox4, ON 2L O2 N/C ,RESPIRATION EVEN AND UNLABORED, NO SOB NOTED, ON TELE SR HR IN 70'S , L UPPER ARM PICC LINE SITE CLEAN ,DRY AND INTACT,SR UP x3, CALL LIGHT WITHIN EASY REACH, BED LOCKED AND IN LOWEST POSITION, CONTINUE TO MONITOR.
[2018-12-08 08:00] VITALS: BP 158/72
[2018-12-08] MEDS: SEVELAMER CARBONATE 0.8 GM POWD.PACK GT SCH ×3 (08:22→17:44)
[2018-12-08] MEDS: DOCUSATE SODIUM 100 MG CAPSULE PO SCH ×2 (08:23→17:11)
[2018-12-08] MEDS: ESCITALOPRAM OXALATE (10 MG) 10 MG TABLET PO SCH (08:23)
[2018-12-08] MEDS: LACTOBACILLUS RHAMNOSUS GG 1 EACH CAP.SPRINK PO SCH ×2 (08:23→17:11)
[2018-12-08] MEDS: GABAPENTIN 300 MG CAPSULE PO SCH ×3 (08:23→17:11)
[2018-12-08] MEDS: PANTOPRAZOLE 40 MG VIAL IV SCH (08:23)
[2018-12-08] MEDS: MORPHINE SULFATE SR 15 MG TABLET.SA PO SCH (08:27)
[2018-12-08] MEDS: PROSOURCE / PROSTAT (PYXIS) 30 ML UDC PO SCH (08:28)
[2018-12-08] MEDS: HYDROGEL DRESSING 90 GM TUBE TP PRN (08:30)
[2018-12-08] MEDS: HYDROGEL DRESSING 90 GM TUBE TP SCH (08:31)
--- NOTE | 2018-12-08 09:00 | NUR ---
RN NOTES PT RECEIVING HD AT THIS TIME , 0900 IV ABX HELD TILL AFTER HD .
[2018-12-08] MEDS: AMLODIPINE BESYLATE 10 MG TABLET PO SCH (11:23)
[2018-12-08] MEDS: hydrALAZINE HCL 25 MG TABLET PO SCH (11:24)
[2018-12-08] MEDS: HEPARIN SODIUM, PORCINE 5000 UNITS/1 ML VIAL SQ SCH (11:59)
[2018-12-08 12:00] VITALS: BP 146/72
[2018-12-08] MEDS ORDERED: SALINE NASAL SPRAY 0.65% 1 BOTTLE BOTTLE NS PRN (13:30)
--- NOTE | 2018-12-08 15:06 | NUR ---
RN NOTES REPORT GIVEN TO LENCHO JUSTICE RN PER DISCHARGE ORDER .
[2018-12-08] MEDS: VANCOMYCIN 500 MG in IV D5W 100 ML IV PRN (15:15)
[2018-12-08 16:00] VITALS: BP 137/71
--- NOTE | 2018-12-08 18:00 | NUR ---
RN NOTES EMT ARRIVED TO WATCH LEADER THE PT BUT STRETCHER IS TOO SMALL AND THEY HAVE TO GO BACK TO BRING THE LARGER STRETCHER .
--- NOTE | 2018-12-08 19:04 | NUR ---
RN NOTES PT STABLE, FAMILY AT THE BEDSIDE, AWAITING FOR EMT TO TIER AND DETONATOR THE PT .
--- NOTE | 2018-12-08 19:39 | NUR ---
GOOD HUMOR VENDOR NOTES RECEIVED PT ON BED ,A/Ox4, ON 2L O2 N/C ,RESPIRATION EVEN AND UNLABORED, NO SOB NOTED, ON TELE SR HR IN 70'S , L UPPER ARM PICC LINE SITE CLEAN ,DRY AND INTACT,SR UP x3, CALL LIGHT WITHIN EASY REACH, BED LOCKED AND IN LOWEST POSITION, CONTINUE TO MONITOR.
[2018-12-08 20:00] VITALS: BP 151/71
--- NOTE | 2018-12-08 20:31 | NUR ---
PT PICKED UP AND TRANSFERED TO [facility] RN CHARGE GIVEN REPORT, WITH PICC LINE INTACT ASSESMENT COMPLETED, PT CLEARED FOR DC. PACKET WITH PT PROFILE PROVIDED TO EMT. ON 2-3 L NC.
[2018-12-12] MEDS ORDERED: ERGOCALCIFEROL (VITAMIN D 2) 50,000 UNIT CAPSULE PO SCH (09:00)
== END 2018-12-08 20:48 | DRG 951 ==
LOC: ER 09:16 → TELE-TD 11:36 → ICU 11:49 → TELE-TD 12-05 19:38 → TELE1 12-06 18:06
PROVIDERS: ADMIT Internal Medicine; ATTEND Internal Medicine
PROC: 5A09357 Assistance with Respiratory Ventilation, Less than 24 Consecutive Hours, Continuous Positive Airway Pressure (ICD-10-PCS; 2018-12-02)
PROC: 02HV33Z Insertion of Infusion Device into Superior Vena Cava, Percutaneous Approach (ICD-10-PCS; principal; 2018-12-03)
PROC: 5A1D70Z Performance of Urinary Filtration, Intermittent, Less than 6 Hours Per Day (ICD-10-PCS; principal; 2018-12-03)
PROC: 5A1945Z Respiratory Ventilation, 24-96 Consecutive Hours (ICD-10-PCS; principal; 2018-12-03)
PROC: 0BH17EZ Insertion of Endotracheal Airway into Trachea, Via Natural or Artificial Opening (ICD-10-PCS; principal; 2018-12-03)
PROC: 05HM33Z Insertion of Infusion Device into Right Internal Jugular Vein, Percutaneous Approach (ICD-10-PCS; principal; 2018-12-03)
PROC: B548ZZA Ultrasonography of Superior Vena Cava, Guidance (ICD-10-PCS; principal; 2018-12-03)
PROC: 5A1D70Z Performance of Urinary Filtration, Intermittent, Less than 6 Hours Per Day (ICD-10-PCS; 2018-12-04)
PROC: 5A1D70Z Performance of Urinary Filtration, Intermittent, Less than 6 Hours Per Day (ICD-10-PCS; 2018-12-05)
PROC: 5A1D70Z Performance of Urinary Filtration, Intermittent, Less than 6 Hours Per Day (ICD-10-PCS; 2018-12-06)
PROC: 0JH63XZ Insertion of Tunneled Vascular Access Device into Chest Subcutaneous Tissue and Fascia, Percutaneous Approach (ICD-10-PCS; 2018-12-07)
PROC: 02HV33Z Insertion of Infusion Device into Superior Vena Cava, Percutaneous Approach (ICD-10-PCS; 2018-12-07)
PROC: B513YZA Fluoroscopy of Right Jugular Veins using Other Contrast, Guidance (ICD-10-PCS; 2018-12-07)
PROC: 031C0ZF Bypass Left Radial Artery to Lower Arm Vein, Open Approach (ICD-10-PCS; 2018-12-07)
PROC: B548ZZA Ultrasonography of Superior Vena Cava, Guidance (ICD-10-PCS; 2018-12-07)
PROC: 05HM33Z Insertion of Infusion Device into Right Internal Jugular Vein, Percutaneous Approach (ICD-10-PCS; 2018-12-07)
PROC: 5A1D70Z Performance of Urinary Filtration, Intermittent, Less than 6 Hours Per Day (ICD-10-PCS; 2018-12-08)
DX: J96.02 Acute respiratory failure with hypercapnia (principal); N17.0 Acute kidney failure with tubular necrosis; J69.0 Pneumonitis due to inhalation of food and vomit; G92 Toxic encephalopathy; I13.2 Hypertensive heart and chronic kidney disease with heart failure and with stage 5 chronic kidney disease, or end stage renal disease; J96.01 Acute respiratory failure with hypoxia; E87.4 Mixed disorder of acid-base balance; E86.0 Dehydration; N18.6 End stage renal disease; N39.0 Urinary tract infection, site not specified; B95.62 Methicillin resistant Staphylococcus aureus infection as the cause of diseases classified elsewhere; E87.1 Hypo-osmolality and hyponatremia; D64.9 Anemia, unspecified; E11.22 Type 2 diabetes mellitus with diabetic chronic kidney disease; E78.5 Hyperlipidemia, unspecified; K21.9 Gastro-esophageal reflux disease without esophagitis; Z79.4 Long term (current) use of insulin; E87.5 Hyperkalemia; E66.2 Morbid (severe) obesity with alveolar hypoventilation; Z68.42 Body mass index [BMI] 45.0-49.9, adult; I50.9 Heart failure, unspecified; E86.1 Hypovolemia; E83.39 Other disorders of phosphorus metabolism; Z79.84 Long term (current) use of oral hypoglycemic drugs; E11.40 Type 2 diabetes mellitus with diabetic neuropathy, unspecified; E46 Unspecified protein-calorie malnutrition; J44.9 Chronic obstructive pulmonary disease, unspecified
CPT/HCPCS: 31720; 36415; 36569; 36600; 70450-TC; 71045-TC; 80048-TC; 80053-TC; 80074; 80076-TC; 80202-TC; 81000-TC; 82550-TC; 82570-TC; 82803-TC; 82962-TC; 83605-TC; 83735-TC; 83970; 84100-TC; 84155; 84155-TC; 84165; 84300-TC; 84484-TC; 85025-TC; 85610-TC; 85730-TC; 86704; 86705; 86706; 86803; 86850-TC; 87040-TC; 87081-TC; 87086-TC; 87340; 90935-TC; 94002-TC; 94003-TC; 94760-TC; 94799-TC; 97110-TC; 97530-TC; A4216; A4565; A6248; A6402; C1750; C1751; C1769; C9113; G0378; J0885; J1100; J1644; J1815; J1940; J2185; J2405; J2543; J2997; J3010; J3370; J3490; J7030; J7040; J7050; J7060; J7070

== ENCOUNTER 2018-12-18 21:56 | Emergency (ER) | payer MEDICAID ==
[~2018-12-18] VITALS: Ht 165.1 cm; Wt 136.1 kg
[~2018-12-18 21:56] MED LIST changes: +ACET-868 PO; +AMIN30LI2 PO; +BISA10SU8 RC; -ENOX40DI SQ; -GABA-532 PO; +GABA-534 PO; +HEPA50008 SQ; +HYDR-4384 PO; +INSU100V7 SQ; +LACT1CAP72 PO; +MORP15TA7 PO; +PIPE2.257 IV; +VANC1PLA10 IV
--- NOTE | 2018-12-18 22:14 | NUR ---
FEELS "YUCKY", MISSED HD TODAY, GEN WEAKNESS. PER DAUGHTERS, PT SOMETIMES ALTERED/CONFUSED RECENTLY. RIGHT NOW PT AOX4, NON-AMBULATORY, VSS, RR EVEN AND UNLABORED. HAS WORKING SHUNT ON UPPER RIGHT CHEST, AND NON-WORKING SHUNT ON LEFT ARM. CHRISTINE CATHETER IN PLACE, URINE DRAINING NORMALLY. DECUBITIS ULCERS BELOW RIGHT BUTTOCK, AND LOWER BACK. NO ACUTE DISTRESS NOTED. NO EVIDENCE OF STROKE. READY FOR EVAL.
[2018-12-18 22:38] LABS: BASOPHILS # (AUTO) 0.1 /CMM (0.0-0.2); BASOPHILS % (AUTO) 1.8 % (0.0-2.0); EOSINOPHILS % (AUTO) 8.5 % (0.0-6.0); HEMATOCRIT 23 % (33-45); HEMOGLOBIN 7.4 g/dL (11.5-14.8); LYMPHOCYTES # (AUTO) 1.3 /CMM (0.8-4.8); LYMPHOCYTES % (AUTO) 33.3 % (20.0-44.0); MEAN CORPUSCULAR HGB CONC 33 g/dl (31.0-36.0); MEAN CORPUSCULAR VOLUME 94 fL (82-100); MONOCYTES # (AUTO) 0.4 /CMM (0.1-1.30); MONOCYTES % (AUTO) 10.2 % (2.0-12.0); NEUTROPHILS # (AUTO) 1.9 /CMM (1.8-8.9); NEUTROPHILS % (AUTO) 46.2 % (43.0-81.0); PLATELET COUNT (AUTO) 175 /CMM (150-450); RED BLOOD CELL COUNT(AUTO) 2.39 MIL/uL (4.0-5.2)
[2018-12-18 22:47] LABS: CALCIUM, SERUM 8.3 mg/dL (8.5-10.1); CARBON DIOXIDE 29 mmol/L (21-32); CHLORIDE 103 mmol/L (98-107); CREATININE 4.8 mg/dL (0.6-1.3); GLUCOSE 152 mg/dL (74-106); POTASSIUM 4.4 mmol/L (3.5-5.1); SODIUM SERUM 136 mmol/L (136-145); UREA NITROGEN, BLOOD 38 mg/dL (7-18)
[2018-12-18 22:53] LABS: ALANINE AMINOTRANSFERASE 13 U/L (12-78); ALBUMIN 2.3 g/dL (3.4-5.0); ALKALINE PHOSPHATASE 136 U/L (46-116); ASPARTATE AMINOTRANSFERASE 18 U/L (15-37); BILIRUBIN,DIRECT 0.1 mg/dL (0.0-0.2); BILIRUBIN,TOTAL 0.3 mg/dL (0.2-1.0); TOTAL PROTEIN, SERUM 7.1 g/dL (6.4-8.2)
[2018-12-18 23:29] LABS: APPEARANCE,URINE Cloudy (CLEAR); BILIRUBIN,URINE Negative (NEGATIVE); BLOOD, URINE Small Ery/uL (NEGATIVE); COLOR,URINE Yellow (YELLOW); KETONES,URINE Negative (NEGATIVE); LEUKOCYTE ESTERASE ,URINE Trace (NEGATIVE); NITRITE, URINE Positive (NEGATIVE); PROTEIN,URINE >=300 mg/dl (NEGATIVE); UGLUCOSE Negative (NEGATIVE); UROBILINOGEN,URINE 0.2 EU/dL (0.2)
--- NOTE | 2018-12-18 23:31 | NUR ---
REPORT REC'D FROM DAVIS JEAN FOR RENATO.
[2018-12-18 23:46] LABS: BACTERIA,URINE Many /HPF (None Seen); SQUAMOUS EPITHELIAL CELL,UR Few /HPF (None Seen); YEAST,URINE Many /HPF (None Seen)
--- NOTE | 2018-12-18 23:56 | NUR ---
PT APPEARS TO BE SLEEPING COMFORTABLY. PT IS ON THE MONITOR AND CONTINUOUS PULSE OX. PT'S DAUGHTERS ARE AT THE BEDSIDE.
[2018-12-19] MEDS ORDERED: CEFTRIAXONE 1GM BAG (ER ONLY) 50 ML IV ONE (00:35)
--- NOTE | 2018-12-19 00:41 | NUR ---
PLEASE CALL CHARITY MATHIS'S DAUGHTER WITH TRANSFER INFORMATION AT [phone].
--- NOTE | 2018-12-19 00:48 | NUR ---
DR. DUPONT, [facility], CALLED AND IS SPEAKING TO DR. COTO.
--- NOTE | 2018-12-19 00:48 | NUR ---
PT'S DAUGHTER CAME TO THE NURSE'S STATION AND STATED THAT THE PT IS FEELING A LITTLE CHEST PRESSURE.
--- NOTE | 2018-12-19 00:48 | NUR ---
PER PT'S DAUGHTERS, PT IS C/O FEELING NAUSEATED.
[2018-12-19] MEDS ORDERED: ONDANSETRON HCL/PF 4 MG/2 ML VIAL ONE (00:49)
--- NOTE | 2018-12-19 00:59 | NUR ---
PT WAS REPOSITIONED IN BED. PT'S O2 SAT DECREASED TO 90%. PT APPEARS VERY SLEEPY. PT WAS PLACED ON 2.5L O2 VIA NC AND IS SATURATING AT 94%. NOTIFIED. PT'S DAUGHTERS STATED THAT THE PT USES OXYGEN AT THE FACILITY AND HAS SLEEP APNEA. PT DOES NOT USE A C-PAP AT NIGHT.
[2018-12-19] MEDS ORDERED: ONDANSETRON HCL/PF 4 MG/2 ML VIAL IV ONE (01:00)
[2018-12-19] MEDS ORDERED: CEFTRIAXONE 1GM BAG (ER ONLY) 1 GM/50 ML PIGGYBACK IV ONE (01:00)
--- NOTE | 2018-12-19 01:22 | NUR ---
CAROLYN, [facility], CALLED AND IS INQUIRING RE: YURIY, SVP OPERATIONS.
--- NOTE | 2018-12-19 01:40 | NUR ---
YURIY, RETORT CONDENSER ATTENDANT FOR REGAL, PT IS ACCEPTED AT [facility] BY DR. DUPONT. YRUIY WILL CALL BACK WITH TRANSFER INFORMATION ONCE IT IS FINALIZED. YURIY CAN BE REACHED AT .
--- NOTE | 2018-12-19 02:10 | NUR ---
PT'S DAUGHTERS LEFT AND ASKED TO BE UPDATED WITH THE TRANSFER INFORMATION.
--- NOTE | 2018-12-19 02:13 | NUR ---
PT APPEARS TO BE SLEEPING SOUNDLY WITH NO S/S OF PAIN OR DISTRESS. PT IS ON 2.5L O2 VIA NC AND IS SATURATING AT 100%. WILL CONTINUE TO MONITOR THE PT.
--- NOTE | 2018-12-19 02:23 | NUR ---
REPORT GIVEN TO DAVIS MCGRAW FOR RENATO.
--- NOTE | 2018-12-19 04:01 | NUR ---
RECEIVED TRANSFER INFORMATION FROM TRANSFER CENTER. PT GOING TO [facility]. ROOM 507-A. PHONE #: ACCEPTED UNDER DR. SON.
--- NOTE | 2018-12-19 04:09 | NUR ---
Patient is resting comfortably in bed with eyes closed. Easily aroused. VSS
--- NOTE | 2018-12-19 04:14 | NUR ---
---UPDATED PHONE NUMBER FOR REPORT---
--- NOTE | 2018-12-19 04:14 | NUR ---
PT WILL BE TRANSPORTED BY [facility] ARRANGED BY TRANSFER CENTER. ETA: [phone]
--- NOTE | 2018-12-19 04:35 | NUR ---
PT ROOM CHANGED TO 53
--- NOTE | 2018-12-19 04:40 | NUR ---
REPORT GIVEN TO ERNESTINA CANNON AT [facility]. DAUGHTER AZA UPDATED WITH TRANSPORTATION INFORMATION. AWAITING PICKUP.
[2018-12-19 05:43] VITALS: BP 102/62
--- NOTE | 2018-12-19 06:34 | NUR ---
REPORT GIVEN TO OLIMPIA CANNON. RM [phone]
== END 2018-12-19 06:36 | disposition short-term general hospital (02) ==
LOC: ER 21:59
DX: D63.8 Anemia in other chronic diseases classified elsewhere (principal); N39.0 Urinary tract infection, site not specified; I11.0 Hypertensive heart disease with heart failure; I50.9 Heart failure, unspecified; R53.1 Weakness; K21.9 Gastro-esophageal reflux disease without esophagitis; E11.40 Type 2 diabetes mellitus with diabetic neuropathy, unspecified; F31.9 Bipolar disorder, unspecified; E78.5 Hyperlipidemia, unspecified; Z99.2 Dependence on renal dialysis; Z79.2 Long term (current) use of antibiotics
CPT/HCPCS: 36415; 70450; 71045; 80048; 80076; 81001; 82962; 83605; 83880; 84484; 85025; 85730; 86850; 87040 ×2; 87086; 93005; 96365; 96375; 99285; A4606; J0696; J2405; 81000-TC; 87186-TC

== ENCOUNTER 2019-10-04 11:17 | Inpatient (IN) | payer MEDICAID, OTHER ==
[~2019-10-04] VITALS: Ht 167.6 cm; Wt 127.5 kg
[~2019-10-04 11:17] MED LIST changes: +BISA10SU11 RC; -BISA10SU8 RC
--- NOTE | 2019-10-04 11:20 | NUR ---
"ARPAN FROM DIALYSIS CENTER. BLEEDING FROM DIALYSIS SITE. NO ACTIVE BLEEDING MOTEL FRONT DESK CLERK. UNABLE TO FINISH DIALYSIS PER DIALYSIS NURSE." PT AAOX2-3, -SOB, PT ON MONITOR, VSS ,NAD NOTED, PENDING MD BURKS
[2019-10-04 12:13] LABS: BASOPHILS % (AUTO) 0.8 % (0.0-2.0); HEMATOCRIT 32 % (33-45); HEMOGLOBIN 10.1 g/dL (11.5-14.8); LYMPHOCYTES # (AUTO) 1.2 /CMM (0.8-4.8); LYMPHOCYTES % (AUTO) 20.9 % (20.0-44.0); MEAN CORPUSCULAR HGB CONC 32 g/dl (31.0-36.0); MEAN CORPUSCULAR VOLUME 93 fL (82-100); MONOCYTES # (AUTO) 0.4 /CMM (0.1-1.30); MONOCYTES % (AUTO) 6.6 % (2.0-12.0); NEUTROPHILS # (AUTO) 3.9 /CMM (1.8-8.9); NEUTROPHILS % (AUTO) 65.7 % (43.0-81.0); PLATELET COUNT (AUTO) 132 /CMM (150-450); RED BLOOD CELL COUNT(AUTO) 3.41 MIL/uL (4.0-5.2); WHITE BLOOD COUNT (AUTO) 5.9 K/uL (4.3-11.0)
[2019-10-04] MEDS ORDERED: SENN-168 PO (12:20)
[2019-10-04] MEDS ORDERED: IPRA3AMP23 IH (12:20)
[2019-10-04] MEDS ORDERED: OXYB5TAB4 PO (12:20)
[2019-10-04] MEDS ORDERED: FERR325T23 PO (12:20)
[2019-10-04] MEDS ORDERED: ATOR10TA PO (12:20)
[2019-10-04] MEDS ORDERED: LACT1CAP71 PO (12:20)
[2019-10-04] MEDS ORDERED: BLOO-668 IN (12:20)
[2019-10-04] MEDS ORDERED: FOLI0.8T2 PO (12:20)
[2019-10-04] MEDS ORDERED: INSU100V36 SQ (12:20)
[2019-10-04] MEDS ORDERED: DIPH25CA51 PO (12:20)
[2019-10-04] MEDS ORDERED: LACT10SO PO (12:20)
[2019-10-04] MEDS ORDERED: CALC667C6 PO (12:20)
[2019-10-04 12:32] LABS: ALBUMIN 2.7 g/dL (3.4-5.0); BILIRUBIN,DIRECT 0.2 mg/dL (0.0-0.2); BILIRUBIN,TOTAL 0.5 mg/dL (0.2-1.0); CALCIUM, SERUM 8.8 mg/dL (8.5-10.1); CREATININE 3.9 mg/dL (0.6-1.3); POTASSIUM 4.3 mmol/L (3.5-5.1); TOTAL PROTEIN, SERUM 7.6 g/dL (6.4-8.2)
--- NOTE | 2019-10-04 13:16 | NUR ---
CALLED NURSING SUP FOR M/S BED.
--- NOTE | 2019-10-04 13:25 | NUR ---
SPOKE TO [facility] INSURANCE SALES PRODUCER BAIRON. STATES WILL CALL DR LANTIGUA FOR PLAN OF CARE.
--- NOTE | 2019-10-04 14:08 | NUR ---
NURSING SUP GAVE M/S BED 306-1.
--- NOTE | 2019-10-04 15:12 | NUR ---
GERARDO WADDELL CONTACT INFO. PHONE NUMBER EXT. [phone]. FAX NUMBER .
--- NOTE | 2019-10-04 15:37 | NUR ---
PAGED DR. PRO.
--- NOTE | 2019-10-04 15:41 | NUR ---
report given to jeanie atkinson for afsaneh pt will be transported to 3rd floor once admitting hospitalist calls back
[2019-10-04] MEDS ORDERED: IV NS 0.9% 1,000 ML BAG IV ONE (16:00)
--- NOTE | 2019-10-04 16:34 | NUR ---
dr. holley vascular surgeon called asking regarding pt disposition, updated him that dr. sierra does not want to keep pt at [place], and eduardo is working on a transfer. relayed pt's lab to md, per md, he understands, and does not have any control over insurance.
--- NOTE | 2019-10-04 16:45 | NUR ---
PER BAIRON CARRILLO, PT CAN STAY IN [place] AND WILL HAVE DR. PRO ADMIT HERE.
--- NOTE | 2019-10-04 17:25 | NUR ---
SEEN AND EXAMINED BY DR. PRO AT BEDSIDE, REQUESTED FOR [facility] B[facility].
--- NOTE | 2019-10-04 17:26 | NUR ---
CALLED NURSING DIETARY AIDE FOR [facility] BED.
--- NOTE | 2019-10-04 17:28 | NUR ---
NURSING SUP AWARE OF DR. PRO REQUESTING [facility] BED.
--- NOTE | 2019-10-04 17:56 | NUR ---
NURSING SUP GAVE [facility] BED 114-1.
--- NOTE | 2019-10-04 18:06 | NUR ---
REPORT GIVEN TO CALVIN CANNON FOR RENATO; PT WILL BE TRANSPORTED TO 1ST FLOOR: [facility]
[2019-10-04] MEDS ORDERED: ACETAMINOPHEN 325 MG TABLET PO PRN (19:00)
[2019-10-04] MEDS ORDERED: BISACODYL SUPP (10 MG) 10 MG/SUPP.RECT SUPP.RECT RC PRN (19:00)
[2019-10-04] MEDS ORDERED: VANCOMYCIN 1 GM in IV D5W 250ml IV ONE (19:00)
[2019-10-04] MEDS ORDERED: diphenhydrAMINE HCL 25 MG CAPSULE PO PRN (19:00)
[2019-10-04] MEDS ORDERED: hydrALAZINE HCL 25 MG TABLET PO PRN (19:00)
[2019-10-04] MEDS ORDERED: HOME MED MISCELLANEOUS XX SCH ×2 (19:00)
[2019-10-04] MEDS ORDERED: LACTULOSE 10 G/15 ML UDC (PYXIS) PO PRN (19:00)
[2019-10-04] MEDS ORDERED: NA PHOS,M-B/NA PHOS,DI-BA 1 EA ENEMA RC PRN (19:00)
[2019-10-04] MEDS ORDERED: MAGNESIUM HYDROXIDE 30 ML UDC PO PRN (19:00)
--- NOTE | 2019-10-04 19:00 | NUR ---
[facility]/RN NOTES RECEIVED PATIENT FROM ER, ACCOMPANIED BY ER NURSE AND DAUGHTER. PATIENT IS ALERT AND ORIENTED X3. NO PAIN OR ACUTE DISTRESS AT THIS TIME. RESPIRATION EVEN AND UNLABORED. SKIN IS DRY WARM TO TOUCH. ENDORSED TO PM NURSE FOR THE ADMISSION OF THE PATIENT. REPORT WAS GIVEN TO PM NURSE. VITALS WITHIN NORMAL LIMITS. ALL NEEDS ANTICIPATED. CALL LIGHT WITHIN REACHED. BED LOCKED AND IN LOWEST POSITION. WILL CONTINUE TO MONITOR. ENDORSED TO PM NURSE FOR RENATO.
[2019-10-04] MEDS ORDERED: FEE PK DOSING 1 MIN EA MC ONE (19:24)
[2019-10-04] MEDS ORDERED: ALBUTEROL FS 2.5 MG/0.5 ML VIAL.NEB NEB PRN (19:30)
[2019-10-04] MEDS ORDERED: IPRATROPIUM NEB FS 0.5 MG/2.5 ML AMPUL.NEB NEB PRN (19:30)
[2019-10-04] MEDS ORDERED: DEXTROSE 50%-WATER 50 ML DISP.SYRIN IV PRN (19:30)
[2019-10-04 20:00] VITALS: BP 121/61
[2019-10-04] MEDS: PROSOURCE / PROSTAT (PYXIS) 30 ML UDC PO SCH (21:00)
[2019-10-04] MEDS: FAMOTIDINE (20 MG) 20 MG TABLET PO SCH (21:49)
[2019-10-04] MEDS: SENNOSIDES 8.6 MG TABLET PO SCH (21:49)
[2019-10-04] MEDS: ATORVASTATIN 10 MG TABLET PO SCH (21:49)
[2019-10-04] MEDS: PIPERACILLIN /TAZOBACTAM 2.25 G in IV D5W 50 ML IV SCH (21:50)
[2019-10-04] MEDS ORDERED: BLOOD SUGAR DIAGNOSTIC 1 EACH STRIP IN SCH (22:00)
[2019-10-04] MEDS: BLOOD SUGAR DIAGNOSTIC 1 EACH STRIP IN SCH (22:00)
[2019-10-04] MEDS ORDERED: INSULIN GLARGINE, 100 UNIT/ML CARTRIDGE SQ SCH (22:00)
[2019-10-04] MEDS: *INSULIN ASPART NOVOLOG 100 UNIT/ML CARTRIDGE SQ PRN (23:22)
[2019-10-05] VITALS: BP 128/68
[2019-10-05 04:00] VITALS: BP 115/58
[2019-10-05] MEDS: PIPERACILLIN /TAZOBACTAM 2.25 G in IV D5W 50 ML IV SCH ×3 (04:29→20:21)
[2019-10-05] MEDS: HYDROCODONE/APAP 5/325MG 1 EACH TABLET PO PRN ×2 (05:17→09:39)
--- NOTE | 2019-10-05 05:28 | NUR ---
RN NOTES RECEIVED PATIENT IN BED WITH NO DISTRESS NOTED. ON ROOM AIR TOLERATING WELL. ALERT AND ORIENTED. VERBALLY ABLE TO COMMUNICATE NEEDS. SKIN ASSESSMENT DONE. VITAL SIGNS WNL. NO BLEEDING ON PERMA CATH SITE NOTED. KEPT CLEAN AND DRY.
[2019-10-05] MEDS ORDERED: VANCOMYCIN POST DIALYSIS 500MG IV PRN ×2 (06:00)
[2019-10-05] MEDS: BLOOD SUGAR DIAGNOSTIC 1 EACH STRIP IN SCH ×4 (07:30→22:18)
[2019-10-05 08:00] VITALS: BP 118/58
[2019-10-05] MEDS ORDERED: HYDROCHLOROTHIAZIDE 25 MG TABLET PO SCH (09:00)
[2019-10-05] MEDS: AMLODIPINE BESYLATE 10 MG TABLET PO SCH (09:00)
[2019-10-05] MEDS ORDERED: VANCOMYCIN 1 GM in IV D5W 250ml IV ONE (09:00)
[2019-10-05] MEDS: LOSARTAN POTASSIUM 50 MG TABLET PO SCH (09:00)
[2019-10-05] MEDS: PROSOURCE / PROSTAT (PYXIS) 30 ML UDC PO SCH ×5 (09:00→20:27)
--- NOTE | 2019-10-05 09:00 | NUR ---
RN NOTE SPOKE WITH DR OROPEZA (COVERING FOR DR LANTIGUA), RE HD CATHETER ACCESS PULLED OUT, HE SAID TO ATTEMPT TO USE AV SHUNT IN LEFT WRIST FIRST. WILL RELAY MESSAGE TO DR PRO. ALSO LEFT MESSAGE WITH DR ACOSTA'S OFFICE RE CONSULT FOR THE PT. NO CALL BACK YET.
[2019-10-05] MEDS: DOCUSATE SODIUM 100 MG CAPSULE PO SCH ×2 (09:29→17:28)
[2019-10-05] MEDS: CALCIUM ACETATE 667 MG TABLET PO SCH ×3 (09:29→17:28)
[2019-10-05] MEDS: FERROUS SULFATE (325 MG) 325 MG/TAB TABLET PO SCH (09:29)
[2019-10-05] MEDS: ESCITALOPRAM OXALATE (10 MG) 10 MG TABLET PO SCH (09:29)
[2019-10-05] MEDS: VIT B CMPLX 3/FA/VIT C/BIOTIN 1 TAB TABLET PO SCH (09:29)
[2019-10-05] MEDS: OXYBUTYNIN CHLORIDE ER 5 MG TAB PO SCH (09:30)
[2019-10-05] MEDS: INSULIN ASPART/LISPRO 100 UNIT/ML CARTRIDGE SQ PRN ×2 (09:32→17:30)
[2019-10-05] MEDS: LACTOBACILLUS RHAMNOSUS GG 1 EACH CAP.SPRINK PO SCH ×2 (09:39→17:28)
--- NOTE | 2019-10-05 10:00 | NUR ---
rn note am blood pressure meds held due to possible hemodialysis today. bp 118/58
[2019-10-05 12:00] VITALS: BP 99/45
[2019-10-05] MEDS: *INSULIN ASPART NOVOLOG 100 UNIT/ML CARTRIDGE SQ PRN ×2 (12:19→22:24)
[2019-10-05] MEDS ORDERED: LIDOCAINE 2% 10 ML MDV IJ ONE ×2 (12:30)
--- NOTE | 2019-10-05 15:05 | NUR ---
rn note pt had hd from left av shunt, but 30 min to scheduled end could not tolerate anymore due to pain in the arm. 1275 ml total fluid removed.
[2019-10-05 16:00] VITALS: BP 123/49
--- NOTE | 2019-10-05 19:24 | NUR ---
[facility]IN[facility] RN OPENING NOTES RECEIVED PATIENT RESTING IN BED, A/OX4. IN NO APPARENT DISTRESS NOTED. DENIES ANY PAIN. ON TELE MONITOR SR WITH HR 80'S. ON ROOM AIR, TOLERATING WELL, BREATHING EVEN AND UNLABORED. NO SOB NOTED. IV SITE RIGHT AC 20G, FLUSHING AND PATENT, SITE C/D/I INTACT. RIGHT CW DRESSING AND LEFT AV SHUNT DRESSINGS INTACT, NO BLEEDING NOTED ON BOTH. SAFETY MEASURES MAINTAINED; BED LOCKED AND IN LOWEST POSITION, SIDE RAILS UP X2, CALL LIGHT WITHIN REACH. WILL CONT TO MONITOR PT CLOSELY.
[2019-10-05 20:00] VITALS: BP 131/49
[2019-10-05] MEDS: INSULIN GLARGINE, 100 UNIT/ML CARTRIDGE SQ SCH (22:23)
[2019-10-05] MEDS: ATORVASTATIN 10 MG TABLET PO SCH (22:25)
[2019-10-05] MEDS: SENNOSIDES 8.6 MG TABLET PO SCH (22:25)
[2019-10-05] MEDS: FAMOTIDINE (20 MG) 20 MG TABLET PO SCH (22:25)
[2019-10-06] VITALS (7 sets, daily range): BP systolic 114–136; BP diastolic 46–69
--- NOTE | 2019-10-06 00:12 | NUR ---
PATIENT STABLE. REPORT GIVEN TO DAVIS MCCARTHY FOR RENATO.
[2019-10-06] MEDS: PIPERACILLIN /TAZOBACTAM 2.25 G in IV D5W 50 ML IV SCH (05:01)
[2019-10-06 06:30] LABS: BASOPHILS % (AUTO) 0.7 % (0.0-2.0); EOSINOPHILS % (AUTO) 5.9 % (0.0-6.0); HEMATOCRIT 28 % (33-45); HEMOGLOBIN 9.2 g/dL (11.5-14.8); LYMPHOCYTES # (AUTO) 1.6 /CMM (0.8-4.8); LYMPHOCYTES % (AUTO) 29.3 % (20.0-44.0); MEAN CORPUSCULAR HGB CONC 32 g/dl (31.0-36.0); MEAN CORPUSCULAR VOLUME 91 fL (82-100); MONOCYTES # (AUTO) 0.4 /CMM (0.1-1.30); NEUTROPHILS # (AUTO) 3.1 /CMM (1.8-8.9); NEUTROPHILS % (AUTO) 56.1 % (43.0-81.0); PLATELET COUNT (AUTO) 109 /CMM (150-450); RED BLOOD CELL COUNT(AUTO) 3.09 MIL/uL (4.0-5.2); WHITE BLOOD COUNT (AUTO) 5.5 K/uL (4.3-11.0)
[2019-10-06 06:39] LABS: CREATININE 5.1 mg/dL (0.6-1.3); POTASSIUM 4.6 mmol/L (3.5-5.1)
--- NOTE | 2019-10-06 07:09 | NUR ---
TECHNICAL SERVICES ASSISTANT CLOSING NOTE PATIENT IN BED ON ROOM AIR NO SIGN OF ANY DISTRESS. ALL NEEDS HAVE BEEN MET AND ATTENDED TO. ALL SAFETY PRECAUTIONS APPLIES. ENDORSED PATIENT TO MORNING SHIFT NURSE FOR RENATO.
[2019-10-06] MEDS: BLOOD SUGAR DIAGNOSTIC 1 EACH STRIP IN SCH ×4 (08:44→21:24)
[2019-10-06] MEDS: ESCITALOPRAM OXALATE (10 MG) 10 MG TABLET PO SCH (08:44)
[2019-10-06] MEDS: VIT B CMPLX 3/FA/VIT C/BIOTIN 1 TAB TABLET PO SCH (08:44)
[2019-10-06] MEDS: LACTOBACILLUS RHAMNOSUS GG 1 EACH CAP.SPRINK PO SCH ×2 (08:44→16:43)
[2019-10-06] MEDS: OXYBUTYNIN CHLORIDE ER 5 MG TAB PO SCH (08:44)
[2019-10-06] MEDS: DOCUSATE SODIUM 100 MG CAPSULE PO SCH ×2 (08:44→16:43)
[2019-10-06] MEDS: CALCIUM ACETATE 667 MG TABLET PO SCH ×3 (08:44→17:34)
[2019-10-06] MEDS: PROSOURCE / PROSTAT (PYXIS) 30 ML UDC PO SCH ×4 (08:45→21:13)
[2019-10-06] MEDS: INSULIN ASPART/LISPRO 100 UNIT/ML CARTRIDGE SQ PRN ×2 (08:50→18:19)
[2019-10-06] MEDS: HYDROCODONE/APAP 5/325MG 1 EACH TABLET PO PRN (08:57)
[2019-10-06] MEDS: LOSARTAN POTASSIUM 50 MG TABLET PO SCH (09:00)
[2019-10-06] MEDS: AMLODIPINE BESYLATE 10 MG TABLET PO SCH (09:00)
[2019-10-06] MEDS: FERROUS SULFATE (325 MG) 325 MG/TAB TABLET PO SCH (09:34)
[2019-10-06] MEDS: *INSULIN ASPART NOVOLOG 100 UNIT/ML CARTRIDGE SQ PRN (12:48)
--- NOTE | 2019-10-06 13:47 | NUR ---
internal sales notes Received patient on room air, no sob noted, patient shows no s/s of pain at this time. Lying down comfortably in her bed. RAC # 20 SL. Bed at the lowest setting, call light within reach, side rails up x2.
--- NOTE | 2019-10-06 18:36 | NUR ---
RN CLOSING NOTES Patient remains on room air, no sob noted, patient denies pain at this time. Patient comfortable in her bed. Consent signed for perma cath placement tomorrow. All medications and patients needs met. Bed at the lowest setting, call light within reach, side rails up x2. Will give report to NOC RN for RENATO bedside.
--- NOTE | 2019-10-06 19:36 | NUR ---
MS/RN OPENING NOTES RECEIVED PATIENT IN BED, RESTING COMFORTABLY IN BED, ON ROOM AIR. RESPIRATIONS EVEN AND UNLABORED, SKIN WARM TO TOUCHM REQUIRE ASSISTANCE IN TURNING AND REPOSITION, ALERT X3. BED LOCKEDM CALL LIGHTS WITHIN REACH, FOR A PROCEDURE CHANELL AM FOR HD CATHETHER PLACEMENT . BED LOCKED CALL LIGHTS WITHIN REACH, WILL MONITOR. IV SITE ON RIGHT AC GAUGE 20.
[2019-10-06 21:08] LABS: CALCIUM, SERUM 8.1 mg/dL (8.5-10.1); CREATININE 5.6 mg/dL (0.6-1.3); POTASSIUM 4.7 mmol/L (3.5-5.1)
--- NOTE | 2019-10-06 21:10 | NUR ---
MS/RN NOTES PATIENT OBSERVE TALKING ON THE PHIONE, ALERT, ORIENTED X4, HAVING LATE DINNER, WILL ATTEND TO NEEDS AND PROVIDE MEDICATION SCHEDULED.
[2019-10-06] MEDS: SENNOSIDES 8.6 MG TABLET PO SCH (21:13)
[2019-10-06] MEDS: ATORVASTATIN 10 MG TABLET PO SCH (21:13)
[2019-10-06] MEDS: FAMOTIDINE (20 MG) 20 MG TABLET PO SCH (21:13)
[2019-10-06] MEDS: INSULIN GLARGINE, 100 UNIT/ML CARTRIDGE SQ SCH (21:27)
--- NOTE | 2019-10-06 21:28 | NUR ---
MS/RN NOTES BLOOD SUGAR CHECK AT 117, PATIENT WILL HAVE PROCEDURE CHANELL AM, NPO TONIGHT. ATE LITTLE. WILL MONITOR.
[2019-10-07] VITALS: BP 136/69
[2019-10-07 05:03] VITALS: BP 132/69
[2019-10-07] MEDS ORDERED: MIDAZOLAM HCL 2 MG/2ML VIAL ONE (06:39)
[2019-10-07] MEDS ORDERED: FAMOTIDINE/PF INJ 20 MG/2 ML VIAL IV ONE (06:40)
[2019-10-07] MEDS ORDERED: FENTANYL PF 100MCG/2ML AMPUL ONE (06:40)
[2019-10-07] MEDS ORDERED: ANESTHESIA TRAY IN PYXIS 1 EA TRAY MC ONE (06:45)
[2019-10-07] MEDS ORDERED: HEPARIN SODIUM, PORCINE 1,000 UNIT/ML VIAL ONE (06:45)
[2019-10-07] MEDS ORDERED: LIDOCAINE HCL/MPF 1% 30 ML VIAL IJ ONE (06:45)
[2019-10-07 06:49] LABS: HEMATOCRIT 28 % (33-45); HEMOGLOBIN 9.2 g/dL (11.5-14.8); LYMPHOCYTES # (AUTO) 1.6 /CMM (0.8-4.8); LYMPHOCYTES % (AUTO) 33.3 % (20.0-44.0); MEAN CORPUSCULAR HGB CONC 33 g/dl (31.0-36.0); MEAN CORPUSCULAR VOLUME 91 fL (82-100); MONOCYTES # (AUTO) 0.4 /CMM (0.1-1.30); MONOCYTES % (AUTO) 7.8 % (2.0-12.0); NEUTROPHILS # (AUTO) 2.4 /CMM (1.8-8.9); NEUTROPHILS % (AUTO) 48.9 % (43.0-81.0); PLATELET COUNT (AUTO) 111 /CMM (150-450); RED BLOOD CELL COUNT(AUTO) 3.12 MIL/uL (4.0-5.2); WHITE BLOOD COUNT (AUTO) 4.9 K/uL (4.3-11.0)
--- NOTE | 2019-10-07 06:52 | NUR ---
MS/RN NOTES OPERATING FOREIGN DIPLOMAT ARRIVE AND VOICE OVER ANNOUNCER PATIENT FOR PROCEDURE, CONSENT SIGNED, CHECK LIST PREPARED, PATIENT WAS WHEELED TO BED, BLOOD DRAW WAS DONE, ALERT, ORIENTED, PATIENT SKIN INTACT AND DRY.
[2019-10-07 07:00] LABS: CALCIUM, SERUM 8.2 mg/dL (8.5-10.1); CREATININE 5.8 mg/dL (0.6-1.3); POTASSIUM 4.7 mmol/L (3.5-5.1)
--- NOTE | 2019-10-07 07:48 | NUR ---
MS RN NOTES PATIENT OFF UNIT IN OR.
[2019-10-07 08:00] VITALS: BP 134/61
[2019-10-07 08:16] VITALS: BP 124/57
--- NOTE | 2019-10-07 08:16 | NUR ---
BUSINESS DEVELOPMENT EXECUTIVE NOTES RECEIVED PATIENT FROM OR, REPORT GIVEN BY DIANE RIGHT JUGULAR CATH OK TO USE, POST XRAY WAS DONE AT OR AND BS 147MG/DL. WITH MD ORDER FOR RESUME ALL PRE-OP MEDS/ORDERS/DIET, STAT PCXR (DONE IN PACU), LINE OK TO USE, NOTED AND CARRIED OUT. ORIENTED PATIENT TO ROOM, CALL LIGHT AND UNIT. NO SOB V/S FOLLOWS, 134/61; HR: 66; T: 97.8 SPO2 ROOM AIR 97% R: 18. CALL LIGHT WITHIN REACH. RESTING COMFORTABLY IN BED. DENIES ANY C/O PAIN NOR DISCOMFORT. RIGHT UPPER CHEST PERMACATH INTACT WITH DRESSING INTACT WITHOUT S/S OF COMPLICATIONS OBSERVED.
[2019-10-07] MEDS: CALCIUM ACETATE 667 MG TABLET PO SCH ×3 (08:30→18:02)
[2019-10-07] MEDS: BLOOD SUGAR DIAGNOSTIC 1 EACH STRIP IN SCH ×3 (08:35→18:02)
[2019-10-07] MEDS: LOSARTAN POTASSIUM 50 MG TABLET PO SCH ×2 (09:00→09:21)
[2019-10-07] MEDS: AMLODIPINE BESYLATE 10 MG TABLET PO SCH ×2 (09:00→09:21)
[2019-10-07] MEDS: DOCUSATE SODIUM 100 MG CAPSULE PO SCH ×2 (09:20→17:00)
[2019-10-07] MEDS: LACTOBACILLUS RHAMNOSUS GG 1 EACH CAP.SPRINK PO SCH ×2 (09:20→17:00)
[2019-10-07] MEDS: VIT B CMPLX 3/FA/VIT C/BIOTIN 1 TAB TABLET PO SCH (09:20)
[2019-10-07] MEDS: OXYBUTYNIN CHLORIDE ER 5 MG TAB PO SCH (09:20)
[2019-10-07] MEDS: ESCITALOPRAM OXALATE (10 MG) 10 MG TABLET PO SCH (09:20)
[2019-10-07] MEDS: PROSOURCE / PROSTAT (PYXIS) 30 ML UDC PO SCH ×3 (09:20→17:00)
[2019-10-07] MEDS: FERROUS SULFATE (325 MG) 325 MG/TAB TABLET PO SCH (09:20)
--- NOTE | 2019-10-07 09:37 | NUR ---
RECORD LIBRARIAN NOTES HELD NORMA, ANTICIPATING HD
[2019-10-07] MEDS: HYDROCODONE/APAP 5/325MG 1 EACH TABLET PO PRN (11:03)
[2019-10-07 12:00] VITALS: BP 132/62
[2019-10-07] MEDS: INSULIN ASPART/LISPRO 100 UNIT/ML CARTRIDGE SQ PRN (13:17)
--- NOTE | 2019-10-07 14:00 | NUR ---
HELICOPTER PILOT NOTES PATIEMNT CURRENTLY RECEIVING HD
[2019-10-07 16:00] VITALS: BP 149/72
--- NOTE | 2019-10-07 17:21 | NUR ---
AUTOMATION/CONTROLS MANAGER NOTES EVENING MEDS HELD, APTIENT CURRENTLY RECEIVING DIALYSIS
--- NOTE | 2019-10-07 18:54 | NUR ---
CERTIFIED VETERINARY TECHNICIAN CLOSING NOTES PATIENT FOR DISCHARGE. 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 DR. ACOSTA AWARE. PATIENT MAY BE D/C AND RETURN TO SNF AND WILL HAVE DIALYSIS TOMORROW AT PATIENT'S DIALYSIS CENTER. DAUGHTER DAMIAN AWARE. RT UPPER CHEST PERMACATH INTACT WITHOUT S/S OF COMPLICATIONS. DISCHARGE PACKET GIVEN TO PATIENT. PATIENT DENIES ANY C/O PAIN NOR DISCOMFORT. IN NO APPARENT DISTRESS. PATIENT WILL BE PICKED UP BY 8PM FOR TRANSFER TO RECEIVING FACILITY [facility].
--- NOTE | 2019-10-07 19:37 | NUR ---
TOWER HOIST OPERATOR NOTES TRANSPORTATION CAME, IV ACCESS REMOVED WITH CATHETER TIP INTACT. ALL BELONGINGS ACCOUNTED FOR. PATIENT LEFT VIA GURNEY IN STABLE CONDITION.
== END 2019-10-07 22:08 | DRG 466 ==
LOC: ER 11:22 → TELE-TD 18:30 → MEDSG1 10-06 09:54
PROVIDERS: ADMIT Internal Medicine; ATTEND Internal Medicine
DX: T82.41XA Breakdown (mechanical) of vascular dialysis catheter, initial encounter (principal); I12.0 Hypertensive chronic kidney disease with stage 5 chronic kidney disease or end stage renal disease; G93.40 Encephalopathy, unspecified; L89.323 Pressure ulcer of left buttock, stage 3; E11.22 Type 2 diabetes mellitus with diabetic chronic kidney disease; N18.6 End stage renal disease; Z99.2 Dependence on renal dialysis; Y83.9 Surgical procedure, unspecified as the cause of abnormal reaction of the patient, or of later complication, without mention of misadventure at the time of the procedure; Y92.89 Other specified places as the place of occurrence of the external cause; D63.1 Anemia in chronic kidney disease; E66.9 Obesity, unspecified; Z68.42 Body mass index [BMI] 45.0-49.9, adult; L30.4 Erythema intertrigo; E78.5 Hyperlipidemia, unspecified
CPT/HCPCS: 36415; 36600; 71045-TC; 80048-TC; 80076-TC; 80202-TC; 82803-TC; 82962-TC; 83735-TC; 84100-TC; 85025-TC; 85730-TC; 86709-TC; 86850-TC; 87040-TC; 87081-TC; 90935-TC; A6253; C1750; C1769; G0378; J1644; J1815; J2250; J2405; J2543; J2704; J2765; J3010; J3370; J3490; J7050; J7060

== ENCOUNTER 2020-01-14 02:12 | Inpatient (IN) | payer OTHER ==
[~2020-01-14] VITALS: Ht 167.6 cm; Wt 131.1 kg
[~2020-01-14 02:12] MED LIST changes: +ATOR10TA PO; +BLOO-668 IN; +CALC667C6 PO; -CEPH-570 PO; +DIPH25CA51 PO; -ERGO500014 PO; +FERR325T23 PO; +FOLI0.8T2 PO; -GABA-534 PO; -HEPA50008 SQ; -INSU100V11 SQ; +INSU100V36 SQ; +IPRA3AMP23 IH; +LACT10SO PO; +LACT1CAP71 PO; -LACT1CAP72 PO; -MORP15TA7 PO; +OXYB-58 PO; -PIPE2.257 IV; +SENN-261 PO; -VANC1PLA10 IV
--- NOTE | 2020-01-14 02:20 | NUR ---
PT AAOX4. [id number]. PER RA HYPOTENSION-HD EARLIER THIS AM. O2 SAT 90% ON RA. PT PALCED ON 4L NC, SAT 100. PT PLACED IN GOWN, ON MONITOR, AND PULSE OX. VSS. AWAITING MD FOR EVAl.
--- NOTE | 2020-01-14 02:25 | NUR ---
PT PLACED ON 4L NC SAT 98% PT WAS SAT AT 90 ON ROOM AIR.
[2020-01-14 03:06] LABS: BASOPHILS % (AUTO) 1.2 % (0.0-2.0); EOSINOPHILS % (AUTO) 3.6 % (0.0-6.0); HEMATOCRIT 30 % (33-45); HEMOGLOBIN 9.7 g/dL (11.5-14.8); LYMPHOCYTES # (AUTO) 1.5 /CMM (0.8-4.8); LYMPHOCYTES % (AUTO) 40.7 % (20.0-44.0); MEAN CORPUSCULAR HGB CONC 32 g/dl (31.0-36.0); MEAN CORPUSCULAR VOLUME 94 fL (82-100); MONOCYTES # (AUTO) 0.3 /CMM (0.1-1.30); MONOCYTES % (AUTO) 8.1 % (2.0-12.0); NEUTROPHILS # (AUTO) 1.7 /CMM (1.8-8.9); NEUTROPHILS % (AUTO) 46.4 % (43.0-81.0); PLATELET COUNT (AUTO) 126 /CMM (150-450); RED BLOOD CELL COUNT(AUTO) 3.21 MIL/uL (4.0-5.2); WHITE BLOOD COUNT (AUTO) 3.7 K/uL (4.3-11.0)
[2020-01-14 03:22] LABS: CALCIUM, SERUM 8.1 mg/dL (8.5-10.1); POTASSIUM 5.1 mmol/L (3.5-5.1)
[2020-01-14 03:36] LABS: ALBUMIN 2.6 g/dL (3.4-5.0); BILIRUBIN,DIRECT 0.1 mg/dL (0.0-0.2); BILIRUBIN,TOTAL 0.6 mg/dL (0.2-1.0); TOTAL PROTEIN, SERUM 7.7 g/dL (6.4-8.2)
--- NOTE | 2020-01-14 03:45 | NUR ---
Patient is resting comfortably in bed with eyes closed. Easily aroused. VSS.
--- NOTE | 2020-01-14 05:14 | NUR ---
Patient is resting comfortably in bed with eyes closed. Easily aroused. VSS.
[2020-01-14] MEDS ORDERED: ONDANSETRON HCL/PF 4 MG/2 ML VIAL IVP PRN (06:30)
[2020-01-14] MEDS ORDERED: MAG HYDROX/AL HYDROX/SIMETH 30 ML UDC PO PRN (06:30)
[2020-01-14] MEDS ORDERED: ACETAMINOPHEN 325 MG TABLET PO PRN ×2 (06:30)
[2020-01-14] MEDS ORDERED: Z GUARD REMEDY 2 OZ OINT TP PRN (06:30)
[2020-01-14] MEDS ORDERED: HYDROCODONE/APAP 5/325MG 1 EACH TABLET PO PRN (06:30)
[2020-01-14] MEDS ORDERED: hydrALAZINE HCL 25 MG TABLET PO PRN (06:30)
[2020-01-14] MEDS ORDERED: diphenhydrAMINE HCL 25 MG CAPSULE PO PRN (06:30)
[2020-01-14] MEDS ORDERED: NA PHOS,M-B/NA PHOS,DI-BA 1 EA ENEMA RC PRN (06:30)
[2020-01-14] MEDS ORDERED: MAGNESIUM HYDROXIDE 30 ML UDC PO PRN ×2 (06:30)
[2020-01-14] MEDS ORDERED: BISACODYL SUPP (10 MG) 10 MG/SUPP.RECT SUPP.RECT RC PRN (06:30)
[2020-01-14] MEDS ORDERED: ZOLPIDEM TARTRATE 5 MG TABLET PO PRN (06:30)
--- NOTE | 2020-01-14 06:57 | NUR ---
VSS. ON 2L NC.
--- NOTE | 2020-01-14 06:57 | NUR ---
Patient is resting comfortably in bed with eyes closed. Easily aroused. VSS.
--- NOTE | 2020-01-14 07:10 | NUR ---
REPPORT GIVEN TO SUKHJINDER
--- NOTE | 2020-01-14 07:25 | NUR ---
PT TRANSFERED PER [facility]
[2020-01-14 08:00] VITALS: BP 105/31
[2020-01-14] MEDS ORDERED: LACTULOSE 10 G/15 ML UDC (PYXIS) PO PRN (08:30)
[2020-01-14] MEDS ORDERED: IPRATROPIUM NEB FS 0.5 MG/2.5 ML AMPUL.NEB NEB PRN (08:30)
[2020-01-14] MEDS: PROSOURCE / PROSTAT (PYXIS) 30 ML UDC PO SCH ×5 (08:30→21:00)
[2020-01-14] MEDS: LACTOBACILLUS RHAMNOSUS GG 1 EACH CAP.SPRINK PO SCH ×3 (08:47→17:26)
[2020-01-14] MEDS: BLOOD SUGAR DIAGNOSTIC 1 EACH STRIP IN SCH ×4 (08:47→22:07)
[2020-01-14] MEDS: FERROUS SULFATE (325 MG) 325 MG/TAB TABLET PO SCH (08:48)
[2020-01-14] MEDS: VIT B CMPLX 3/FA/VIT C/BIOTIN 1 TAB TABLET PO SCH (08:48)
[2020-01-14] MEDS: DOCUSATE SODIUM 100 MG CAPSULE PO SCH ×2 (08:48→17:26)
[2020-01-14] MEDS: ESCITALOPRAM OXALATE (10 MG) 10 MG TABLET PO SCH (08:48)
[2020-01-14] MEDS: OXYBUTYNIN CHLORIDE ER 5 MG TAB PO SCH (08:49)
[2020-01-14] MEDS: CALCIUM ACETATE 667 MG TABLET PO SCH ×3 (08:51→17:26)
[2020-01-14] MEDS ORDERED: Medication Not On Formulary EA (Olmesartan Med/Amlodipine/Hctz (Tribenzor 40-10-25 Mg Ta PO SCH (09:00)
[2020-01-14 16:00] VITALS: BP 82/44
[2020-01-14] MEDS: HYDROCODONE/APAP 5/325MG 1 EACH TABLET PO PRN (18:06)
--- NOTE | 2020-01-14 19:34 | NUR ---
RN NOTES PATIENT IN STABLE CONDITION, NO ACUTE CHANGES TO PATIENT CONDITION DURING MY SHIFT. REPORT CALLED AND GIVEN TO ZAN AT [facility]. ATTEMPTED TO REACH FAMILY, UNABLE TO REACH LEFT A VOICEMAIL THAT THE PT IS BEING TRANSFERRED. ALL DISCHARGE PAPERWORK COMPLETE AND PLACED IN THE CHART. SAFETY MAINTAINED, CALL LIGHT WITHIN REACH, ENDORSED TO MANUFACTURER AGENT NURSE TO CONTINUE CARE. Addendum: 01/14/20 at 1937 by JONATHAN CLAYTON RN WRONG PATIENT
--- NOTE | 2020-01-14 19:37 | NUR ---
RN CLOSING NOTES PATIENT IN STABLE CONDITION. NO ACUTE CHANGES TO PT CONDITION DURING MY SHIFT. ALL PATIENT NEEDS MET. ALL ADMISSION PAPERWORK COMPLETE. ALL SCHEDULED MEDS GIVEN ORDERED. UNABLE TO OBTAIN ORDERED URINALYSIS BECAUSE PATIENT DID NOT AGREE TO A STRAIGHT CATH. NO BOWEL MOVEMENT DURING MY SHIFT. INSTRUCTED THE PATIENT TO SPIT IN A CUP FOR SPUTUM CULTURE. IF PT UNABLE ASK RT TO OBTAIN RESPIRATORY CULTURE. SAFETY MAINTAINED, CALL LIGHT WITHIN REACH, ENDORSED TO CUSTOMER RELATIONS SPECIALIST NURSE TO CONTINUE CARE.
--- NOTE | 2020-01-14 19:47 | NUR ---
RECEIVED PT SITTING UP IN CHAIR,AWAKE A/O X2-3. NO COMPLAINT OF PAIN OR DISCOMFORT AT THE TIME, BREATHING EVEN AND UNLABORED ON 2L. ALL NEEDS MET AT THE MOMENT. IV INTACT AND PATENT. WILL CONTINUE TO MONITOR FREQUENTLY
[2020-01-14] MEDS: FAMOTIDINE (20 MG) 20 MG TABLET PO SCH (21:56)
[2020-01-14] MEDS: ATORVASTATIN 10 MG TABLET PO SCH (21:56)
[2020-01-14] MEDS: SENNOSIDES 8.6 MG TABLET PO SCH (21:56)
[2020-01-14] MEDS: INSULIN GLARGINE, 100 UNIT/ML CARTRIDGE SQ SCH (22:06)
[2020-01-15] VITALS: BP 82/44
[2020-01-15 06:57] LABS: BASOPHILS % (AUTO) 0.9 % (0.0-2.0); EOSINOPHILS % (AUTO) 6.6 % (0.0-6.0); HEMATOCRIT 27 % (33-45); HEMOGLOBIN 8.6 g/dL (11.5-14.8); LYMPHOCYTES # (AUTO) 1.9 /CMM (0.8-4.8); LYMPHOCYTES % (AUTO) 47.4 % (20.0-44.0); MEAN CORPUSCULAR HGB CONC 32 g/dl (31.0-36.0); MEAN CORPUSCULAR VOLUME 94 fL (82-100); MONOCYTES # (AUTO) 0.3 /CMM (0.1-1.30); MONOCYTES % (AUTO) 8.1 % (2.0-12.0); NEUTROPHILS # (AUTO) 1.5 /CMM (1.8-8.9); PLATELET COUNT (AUTO) 109 /CMM (150-450); RED BLOOD CELL COUNT(AUTO) 2.89 MIL/uL (4.0-5.2); WHITE BLOOD COUNT (AUTO) 3.9 K/uL (4.3-11.0)
[2020-01-15 07:08] LABS: ALBUMIN 2.5 g/dL (3.4-5.0); BILIRUBIN,TOTAL 0.4 mg/dL (0.2-1.0); CALCIUM, SERUM 8.6 mg/dL (8.5-10.1); CREATININE 7.4 mg/dL (0.6-1.3); MAGNESIUM 2.3 mg/dL (1.8-2.4); PHOSPHORUS 4.5 mg/dL (2.5-4.9); POTASSIUM 4.6 mmol/L (3.5-5.1); TOTAL PROTEIN, SERUM 7.3 g/dL (6.4-8.2)
--- NOTE | 2020-01-15 07:30 | NUR ---
RN OPENING NOTES RECEIVED PATIENT IN STABLE CONDITION. NO ACUTE DISTRESS NOTED. PT IS A/O X3, RESTING IN BED COMFORTABLY. IV ON BOTH HANDS, #22, PATENT INTACT AND FLUSHED WELL. PT IS ON 2L O2 VIA NC, TOLERATING WELL, SATURATION AT 98%. PATIENT IS CLEAN AND DRY, NO CONCERNS AT THE MOMENT, SAFETY MAINTAINED, CALL LIGHT WITHIN REACH, WILL CONTINUE TO MONITOR.
[2020-01-15 08:00] VITALS: BP 113/57
[2020-01-15] MEDS: BLOOD SUGAR DIAGNOSTIC 1 EACH STRIP IN SCH ×4 (08:11→21:40)
[2020-01-15] MEDS: VIT B CMPLX 3/FA/VIT C/BIOTIN 1 TAB TABLET PO SCH (08:11)
[2020-01-15] MEDS: ESCITALOPRAM OXALATE (10 MG) 10 MG TABLET PO SCH (08:11)
[2020-01-15] MEDS: CALCIUM ACETATE 667 MG TABLET PO SCH ×3 (08:12→17:15)
[2020-01-15] MEDS: OXYBUTYNIN CHLORIDE ER 5 MG TAB PO SCH (08:12)
[2020-01-15] MEDS: PROSOURCE / PROSTAT (PYXIS) 30 ML UDC PO SCH ×4 (08:12→21:00)
[2020-01-15] MEDS: FERROUS SULFATE (325 MG) 325 MG/TAB TABLET PO SCH (08:12)
[2020-01-15] MEDS: DOCUSATE SODIUM 100 MG CAPSULE PO SCH ×2 (08:12→17:13)
[2020-01-15] MEDS: LACTOBACILLUS RHAMNOSUS GG 1 EACH CAP.SPRINK PO SCH ×2 (08:12→17:13)
--- NOTE | 2020-01-15 09:40 | NUR ---
WOUND CARE CONSULT: PT FOLLOWED BY SURGICAL TEAM FOR WOUND CARE. DEFER TO SURGICAL TEAM FOR WOUND TREATMENT PLAN. WILL SEE PRN. DISCUSSED SKIN PROTECTION WITH NURSING STAFF. CURRENT AMINA SCORE IS 14.
[2020-01-15 09:57] LABS: APPEARANCE,URINE SL CLOUDY (CLEAR); BILIRUBIN,URINE NEGATIVE (NEGATIVE); BLOOD, URINE NEGATIVE Ery/uL (NEGATIVE); COLOR,URINE YELLOW (YELLOW); KETONES,URINE NEGATIVE (NEGATIVE); LEUKOCYTE ESTERASE ,URINE NEGATIVE (NEGATIVE); NITRITE, URINE NEGATIVE (NEGATIVE); PH,URINE 7.5 (5.0-8.0); PROTEIN,URINE 100 mg/dl (NEGATIVE); UGLUCOSE NEGATIVE (NEGATIVE); UROBILINOGEN,URINE 0.2 EU/dL (0.2)
[2020-01-15 11:25] LABS: RBC,URINE NONE SEEN /HPF (0-2)
[2020-01-15 11:26] LABS: BACTERIA,URINE None seen /HPF (None Seen); SQUAMOUS EPITHELIAL CELL,UR Moderate /HPF (None Seen); WBC,URINE 0-2 /HPF (0-3)
[2020-01-15 14:42] LABS: OCCULT BLOOD STOOL NEGATIVE (NEGATIVE)
[2020-01-15 16:00] VITALS: BP 122/60
--- NOTE | 2020-01-15 19:17 | NUR ---
RN CLOSING NOTES PATIENT RESTING COMFORTABLY IN BED. DAUGHTER AT BED SIDE. NO ACUTE CHANGES TO PATIENT CONDITION DURING MY SHIFT. ALL PATIENT NEEDS MET. PT ON 2L O2 TOLERATING WELL SATURATION AT 98%. ALL SCHEDULED MEDS GIVEN ON TIME. SAFETY MAINTAINED, CALL LIGHT WITHIN REACH, ENDORSED TO CARPENTRY SUPERVISOR NURSE TO CONTINUE CARE.
--- NOTE | 2020-01-15 19:47 | NUR ---
MS RN NOTE RECEIVED PT IN STABLE CONDITION A/O X4, NOTED IN BED WITH FAMILY AT BEDSIDE. NO SIGNS OF SOB OR DISTRESS, NO C/O PAIN OR N/V. IV IN R HAND #22 AND L HAND #[address] S/L. ALL CURRENT NEEDS ATTENDED TO. BED LOW, LOCKED, UPPER RAILS UP, AND CALL LIGHT WITHIN REACH. WILL CONT. TO MONITOR.
[2020-01-15 20:00] VITALS: BP 91/37
[2020-01-15] MEDS: ATORVASTATIN 10 MG TABLET PO SCH (21:33)
[2020-01-15] MEDS: SENNOSIDES 8.6 MG TABLET PO SCH (21:33)
[2020-01-15] MEDS: FAMOTIDINE (20 MG) 20 MG TABLET PO SCH (21:33)
[2020-01-15] MEDS: INSULIN GLARGINE, 100 UNIT/ML CARTRIDGE SQ SCH (21:40)
[2020-01-16 04:38] VITALS: BP 97/43
[2020-01-16 06:23] LABS: BASOPHILS % (AUTO) 0.8 % (0.0-2.0); EOSINOPHILS % (AUTO) 7.6 % (0.0-6.0); HEMATOCRIT 24 % (33-45); HEMOGLOBIN 7.9 g/dL (11.5-14.8); LYMPHOCYTES # (AUTO) 1.7 /CMM (0.8-4.8); LYMPHOCYTES % (AUTO) 50.1 % (20.0-44.0); MEAN CORPUSCULAR HGB CONC 33 g/dl (31.0-36.0); MEAN CORPUSCULAR VOLUME 92 fL (82-100); MONOCYTES # (AUTO) 0.3 /CMM (0.1-1.30); MONOCYTES % (AUTO) 7.8 % (2.0-12.0); NEUTROPHILS # (AUTO) 1.1 /CMM (1.8-8.9); NEUTROPHILS % (AUTO) 33.7 % (43.0-81.0); PLATELET COUNT (AUTO) 92 /CMM (150-450); RED BLOOD CELL COUNT(AUTO) 2.61 MIL/uL (4.0-5.2); WHITE BLOOD COUNT (AUTO) 3.4 K/uL (4.3-11.0)
--- NOTE | 2020-01-16 06:41 | NUR ---
MS RN NOTE PT REMAINS IN STABLE CONDITION A/O X3, RESTING IN BED, EASILY RESPONDS TO NAME. NO SIGNS OF SOB OR DISTRESS, NO C/O PAIN OR N/V. IV IN R HAND #22 AND L HAND #[address] S/L. ALL CURRENT NEEDS ATTENDED TO. BED LOW, LOCKED, UPPER RAILS UP, AND CALL LIGHT WITHIN REACH. WILL CONT. TO MONITOR AND ENDORSE TO NEXT SHIFT FOR RENATO.
[2020-01-16 06:46] LABS: CREATININE 6.9 mg/dL (0.6-1.3); MAGNESIUM 2.1 mg/dL (1.8-2.4); PHOSPHORUS 3.9 mg/dL (2.5-4.9); POTASSIUM 4.2 mmol/L (3.5-5.1)
[2020-01-16] MEDS: BLOOD SUGAR DIAGNOSTIC 1 EACH STRIP IN SCH ×4 (07:30→20:51)
[2020-01-16 08:00] VITALS: BP 94/42
[2020-01-16] MEDS: DOCUSATE SODIUM 100 MG CAPSULE PO SCH ×2 (09:54→17:08)
[2020-01-16] MEDS: ESCITALOPRAM OXALATE (10 MG) 10 MG TABLET PO SCH (09:54)
[2020-01-16] MEDS: FERROUS SULFATE (325 MG) 325 MG/TAB TABLET PO SCH (09:54)
[2020-01-16] MEDS: LACTOBACILLUS RHAMNOSUS GG 1 EACH CAP.SPRINK PO SCH ×2 (09:54→16:57)
[2020-01-16] MEDS: OXYBUTYNIN CHLORIDE ER 5 MG TAB PO SCH (09:54)
[2020-01-16] MEDS: VIT B CMPLX 3/FA/VIT C/BIOTIN 1 TAB TABLET PO SCH (09:54)
[2020-01-16] MEDS: CALCIUM ACETATE 667 MG TABLET PO SCH ×3 (09:54→17:08)
[2020-01-16] MEDS: PROSOURCE / PROSTAT (PYXIS) 30 ML UDC PO SCH ×4 (11:23→20:15)
--- NOTE | 2020-01-16 11:54 | NUR ---
LETY left a message for pt's daughter Kimberli per her request. Addendum: 01/16/20 at 1204 by HARRISON COLE DOUGLAS received a call back from pt's daughter Kimberli requesting a verification of admission letter for section 8 housing. LETY completed letter and will give to CRN Soon to put in pt's chart and give to the daughter when she arrives this evening.
--- NOTE | 2020-01-16 13:00 | NUR ---
MS/RN Note Report received from Ace CANNON.
--- NOTE | 2020-01-16 13:00 | NUR ---
MS/RN Note Report received from Ace CANNON.
--- NOTE | 2020-01-16 14:05 | NUR ---
SBAR report given to DAVIS Hargrove for continuity of pt care.
[2020-01-16 16:00] VITALS: BP 131/57
[2020-01-16] MEDS: CEFEPIME 1 GM in IV D5W 50 ML IV SCH (17:55)
--- NOTE | 2020-01-16 18:50 | NUR ---
MS/RN Closing note Patient in bed comfortable, no appears pain or any discomfort, skin is warm to touch, clean/dry, intact IV site, and dressing changed. Respiratory even and unlabored with oxygen at 2LPM. Kept lower position of bed with elevated HOB. Patient started ATB IV, no s/s of adverse reaction observed at this time. Call light within reach, will endorse to manufacturing supervisor 2nd shift.
--- NOTE | 2020-01-16 19:23 | NUR ---
MS/RN OPENING NOTES RECEIVED PATIENT IN BED, RESTING IN BED, ONLY 75 % DINNER TRAY COMPLETED, ABLE TO AROUSE AND WITH EYE CONTACT, RESPIRATIONS EVEN AND UNLABORED. SKIN WARM TO TOUCH. BED LOCKED, CALL LIGHTS WITHIN REACH, WILL MONITOR. RECEIVED ENDORSEMENT FROM AM RN FOR RENATO.WILL MONITOR ANY CHANGES.
[2020-01-16 20:00] VITALS: BP_SYST 137; BP_SYST 97; BP_DIAS 40; BP_DIAS 76
[2020-01-16 20:45] VITALS: BP 97/40
--- NOTE | 2020-01-16 20:53 | NUR ---
MS/RN NOTES PATIENT ABLE TO STATE NAME AND DATE, ALSO ABLE TO KNOW WHERE SHE IS AT, CHECKED BLOOD SUGAR AT 123 BIT STILL FALLS ASLEEP. SKIN WARM TO TOUCH.
[2020-01-16] MEDS: FAMOTIDINE (20 MG) 20 MG TABLET PO SCH (21:27)
[2020-01-16] MEDS: SENNOSIDES 8.6 MG TABLET PO SCH (21:27)
[2020-01-16] MEDS: ATORVASTATIN 10 MG TABLET PO SCH (21:27)
[2020-01-16] MEDS: INSULIN GLARGINE, 100 UNIT/ML CARTRIDGE SQ SCH (21:36)
--- NOTE | 2020-01-16 21:37 | NUR ---
MS/RN NOTES BLOOD SUGAR CHECKED EARLIER BS AT 123, PATIENT AWAKE AND ABLE TO PROVIDE SOME FLUIDS, REFUSE SOME SNACKS AND PREFER TO SLEEP , INSULIN LANTUS NOT ADMINISTERED PATIENT BLOOD SUGAR LEVEL LOW .
[2020-01-16 21:58] VITALS: BP 97/40
--- NOTE | 2020-01-16 22:10 | NUR ---
MS/RN NOTES PATIENT ARROUSABLE, CAN VERBALIZE NEEDS.
[2020-01-17 04:00] VITALS: BP_SYST 102; BP_SYST 143; BP_DIAS 46; BP_DIAS 81
--- NOTE | 2020-01-17 06:28 | NUR ---
111-2/MS/RN CLOSING NOTES PATIENT ALERT ORIENTED, MONITORED FOR ANY CHANGES, PROVIDED FLUIDS, OFFERED SNACKS. KEPT COMFORTABLE. ATTENDED TO ALL NEEDS. BED LOCKED, CALL LIGHTS WITHIN REACH. SLEPT WELL. WILL ENDORSE TO AM RN FOR RENATO
[2020-01-17 06:51] LABS: BASOPHILS % (AUTO) 0.7 % (0.0-2.0); EOSINOPHILS % (AUTO) 8.8 % (0.0-6.0); HEMATOCRIT 27 % (33-45); HEMOGLOBIN 8.6 g/dL (11.5-14.8); LYMPHOCYTES # (AUTO) 1.7 /CMM (0.8-4.8); MEAN CORPUSCULAR HGB CONC 32 g/dl (31.0-36.0); MEAN CORPUSCULAR VOLUME 93 fL (82-100); MONOCYTES # (AUTO) 0.3 /CMM (0.1-1.30); MONOCYTES % (AUTO) 7.8 % (2.0-12.0); NEUTROPHILS # (AUTO) 1.4 /CMM (1.8-8.9); NEUTROPHILS % (AUTO) 37.7 % (43.0-81.0); PLATELET COUNT (AUTO) 113 /CMM (150-450); RED BLOOD CELL COUNT(AUTO) 2.89 MIL/uL (4.0-5.2); WHITE BLOOD COUNT (AUTO) 3.7 K/uL (4.3-11.0)
[2020-01-17 07:09] LABS: CALCIUM, SERUM 8.3 mg/dL (8.5-10.1); MAGNESIUM 2.1 mg/dL (1.8-2.4); PHOSPHORUS 3.8 mg/dL (2.5-4.9); POTASSIUM 4.5 mmol/L (3.5-5.1)
[2020-01-17] MEDS: BLOOD SUGAR DIAGNOSTIC 1 EACH STRIP IN SCH ×4 (07:30→22:00)
[2020-01-17 08:00] VITALS: BP 98/39
[2020-01-17] MEDS ORDERED: LEVO500T75 PO (08:12)
[2020-01-17] MEDS: PROSOURCE / PROSTAT (PYXIS) 30 ML UDC PO SCH ×5 (12:07→21:30)
[2020-01-17] MEDS: ESCITALOPRAM OXALATE (10 MG) 10 MG TABLET PO SCH (12:08)
[2020-01-17] MEDS: FERROUS SULFATE (325 MG) 325 MG/TAB TABLET PO SCH (12:08)
[2020-01-17] MEDS: OXYBUTYNIN CHLORIDE ER 5 MG TAB PO SCH (12:09)
[2020-01-17] MEDS: DOCUSATE SODIUM 100 MG CAPSULE PO SCH ×2 (12:09→18:01)
[2020-01-17] MEDS: LACTOBACILLUS RHAMNOSUS GG 1 EACH CAP.SPRINK PO SCH ×2 (12:09→18:01)
[2020-01-17] MEDS: CALCIUM ACETATE 667 MG TABLET PO SCH ×3 (12:09→18:01)
[2020-01-17] MEDS: VIT B CMPLX 3/FA/VIT C/BIOTIN 1 TAB TABLET PO SCH (12:09)
[2020-01-17] MEDS ORDERED: ACETYLCYSTEINE 20% SOLN 800 MG/4 ML VIAL NEB SCH (15:30)
[2020-01-17 16:00] VITALS: BP_SYST 124; BP_SYST 140; BP_DIAS 54; BP_DIAS 81
[2020-01-17] MEDS: ACETYLCYSTEINE 10% SOLN 400 MG/4 ML VIAL NEB SCH (16:50)
[2020-01-17] MEDS: ALBUTEROL FS 2.5 MG/0.5 ML VIAL.NEB NEB PRN (16:51)
[2020-01-17] MEDS: CEFEPIME 1 GM in IV D5W 50 ML IV SCH (18:01)
[2020-01-17 20:00] VITALS: BP 130/58
--- NOTE | 2020-01-17 20:00 | NUR ---
V/S taken by ALLERGY AND IMMUNOLOGY SPECIALIST. RECORDED.
--- NOTE | 2020-01-17 20:21 | NUR ---
FAMILY MEMBER AT THE BEDSIDE. ASSISTED THE PATIENT TO GO TO THE BEDSIDE COMMODE.
--- NOTE | 2020-01-17 20:30 | NUR ---
MS RN OPENING NOTES: 1929- RECEIVED PATIENT IN BED, AWAKE. A/O X4. NO SOB NOTED. NO C/O PAIN. CALL LIGHT WITHIN REACH. BED ALARM ON. BED IN LOWEST AND LOCKED POSITION. WITH LEFT UA AV SHUNT WITH THRILL AND BRUIT PRESENCE, SIGN ( FOR NO BP ON THE LEFT ARM)ON THE WALL ON THE HEAD PART OF THE BED IN PLACE. CORRECTIVE THERAPY AIDE TEACHER AWARE.WITH RIGHT CHEST WALL HD CATHETER INTACT,DRESSING IS INTACT, CLEAN AND DRY. NO BLEEDING NOTED.
[2020-01-17] MEDS: SENNOSIDES 8.6 MG TABLET PO SCH (21:30)
[2020-01-17] MEDS: FAMOTIDINE (20 MG) 20 MG TABLET PO SCH (21:30)
[2020-01-17] MEDS: ATORVASTATIN 10 MG TABLET PO SCH (21:30)
[2020-01-17] MEDS: HYDROCODONE/APAP 5/325MG 1 EACH TABLET PO PRN (22:58)
[2020-01-17] MEDS: INSULIN GLARGINE, 100 UNIT/ML CARTRIDGE SQ SCH (23:04)
[2020-01-18 04:00] VITALS: BP 130/58
--- NOTE | 2020-01-18 05:25 | NUR ---
PATIENT REFUSED TO HAVE WOUND DRESSING CHANGE AT THIS TIME. PATIENT WANTS IT AT 0800,WILL ENDORSE TO THE NEXT SHIFT RN.
--- NOTE | 2020-01-18 05:27 | NUR ---
INSTRUCTED PATIENT FOR SPUTUM COLLECTION, CONTAINER PROVIDED,VERBALIZED UNDERSTANDING.
--- NOTE | 2020-01-18 06:32 | NUR ---
MS RN CLOSING NOTES: PATIENT IN BED, AWAKE A/O X4. NO SOB NOTED. MEDICATED WITH NORCO 1 TAB PO X1 LAST NIGHT, EFFECTIVE. CALL LIGHT WITHIN REACH. BED ALARM ON. BED IN LOWEST AND LOCKED POSITION.
[2020-01-18 07:11] LABS: BASOPHILS % (AUTO) 0.6 % (0.0-2.0); EOSINOPHILS % (AUTO) 8.9 % (0.0-6.0); HEMATOCRIT 25 % (33-45); HEMOGLOBIN 8.1 g/dL (11.5-14.8); LYMPHOCYTES # (AUTO) 1.4 /CMM (0.8-4.8); MEAN CORPUSCULAR HGB CONC 33 g/dl (31.0-36.0); MEAN CORPUSCULAR VOLUME 91 fL (82-100); MONOCYTES # (AUTO) 0.3 /CMM (0.1-1.30); MONOCYTES % (AUTO) 7.7 % (2.0-12.0); NEUTROPHILS # (AUTO) 1.7 /CMM (1.8-8.9); NEUTROPHILS % (AUTO) 45.8 % (43.0-81.0); PLATELET COUNT (AUTO) 112 /CMM (150-450); WHITE BLOOD COUNT (AUTO) 3.8 K/uL (4.3-11.0)
[2020-01-18 07:20] LABS: CALCIUM, SERUM 8.1 mg/dL (8.5-10.1); CREATININE 7.3 mg/dL (0.6-1.3); PHOSPHORUS 3.6 mg/dL (2.5-4.9); POTASSIUM 4.2 mmol/L (3.5-5.1)
--- NOTE | 2020-01-18 07:50 | NUR ---
RN OPENING NOTE: RECEIVED PATIENT IN BED THIS MORNING. PATIENT IS ALERT AND ORIENTED X3, RESPONDS APPROPRIATELY. PATIENT IS ON 2L/MIN O2 VIA NC, NO SIGNS OF RESPIRATORY DISTRESS NOTED. PATIENT HAS AN AV SHUNT ON LEFT ARM, BRUIT + THRILL PRESENT. PERM-A-CATH ON RCW, DRESSING INTACT, NO SIGNS OF COMPLICATIONS NOTED. #22 ON RIGHT HANF AND #22 ON LEFT HAND, C/D/I, NO SIGNS OF COMPLICATIONS NOTED, FLUSHED WELL. NO C/O PAIN AT THIS TIME. SAFETY MEASURES IMPLEMENTED, BED IN LOWEST POSITION, LOCKED, SIDE RAILS UP X2, CALL LIGHT WITHIN REACH. WILL CONTINUE TO MONITOR PATIENT FOR ANY CHANGES.
[2020-01-18] MEDS: BLOOD SUGAR DIAGNOSTIC 1 EACH STRIP IN SCH ×2 (07:52→12:37)
[2020-01-18 08:00] VITALS: BP 120/58
[2020-01-18] MEDS: ACETYLCYSTEINE 10% SOLN 400 MG/4 ML VIAL NEB SCH ×2 (08:38→15:40)
[2020-01-18] MEDS: ALBUTEROL FS 2.5 MG/0.5 ML VIAL.NEB NEB PRN ×2 (08:38→15:40)
[2020-01-18] MEDS: PROSOURCE / PROSTAT (PYXIS) 30 ML UDC PO SCH ×2 (08:56→12:41)
[2020-01-18] MEDS: OXYBUTYNIN CHLORIDE ER 5 MG TAB PO SCH (08:56)
[2020-01-18] MEDS: LACTOBACILLUS RHAMNOSUS GG 1 EACH CAP.SPRINK PO SCH (08:56)
[2020-01-18] MEDS: ESCITALOPRAM OXALATE (10 MG) 10 MG TABLET PO SCH (08:56)
[2020-01-18] MEDS: FERROUS SULFATE (325 MG) 325 MG/TAB TABLET PO SCH (08:56)
[2020-01-18] MEDS: DOCUSATE SODIUM 100 MG CAPSULE PO SCH (08:56)
[2020-01-18] MEDS: VIT B CMPLX 3/FA/VIT C/BIOTIN 1 TAB TABLET PO SCH (08:57)
[2020-01-18] MEDS: CALCIUM ACETATE 667 MG TABLET PO SCH ×2 (08:58→12:41)
--- NOTE | 2020-01-18 13:27 | NUR ---
CONTACTED L[facility]CHOT[facility] X2 AND THEY HUNG UP BOTH TIMES. CALLED A THIRD TIME AND SPOKE WITH PETER, SHE STATED RN ASSISTANT RESEARCH SCIENTIST IS ON LUNCH AND ASKED FOR A CALL BACK NUMBER. INFORMED THEM THAT PATIENT WILL BE PICKED UP AT 1500 AND I NEED TO GIVE REPORT. AWAITING PHONE CALL.
--- NOTE | 2020-01-18 15:01 | NUR ---
[facility] CALLED WILL BE LATE FOR ONE HOUR TO PICKUP GERARDO ARMANDO AND NURSING SUP MADE AWARE.
--- NOTE | 2020-01-18 15:59 | NUR ---
DISABILITY ATTORNEY NOTE: PATIENT DC TO [facility] SN[facility]. UPON ASSESSMENT, PATIENT IS ALERT AND ORIENTED X3, RESPONDS APPROPRIATELY. PATIENT IS ON 2L/MIN O2 VIA NC, NO SIGNS OF RESPIRATORY DISTRESS NOTED. NO SIGNS OF ACUTE DISTRESS NOTED. IVSL REMOVED FROM L/R HAND. NO C/O PAIN AT THIS TIME. REPORT GIVEN TO [facility], C/O TAB INMAN. [place] PAPERWORK SIGNED. PATIENT REFUSED PHOTOS BEING TAKEN OF HER WOUNDS. TRANSPORTATION ARRIVED, REPORT GIVEN. [facility] AT 1558 VIA [facility].
== END 2020-01-18 15:59 | DRG 720 ==
LOC: ER 02:14 → TELE1 05:46 → MEDSG1 07:50
PROVIDERS: ADMIT Registered Nurse; ATTEND Registered Nurse
PROC: 5A1D70Z Performance of Urinary Filtration, Intermittent, Less than 6 Hours Per Day (ICD-10-PCS; principal; 2020-01-14)
DX: A41.9 Sepsis, unspecified organism (principal); I21.A1 Myocardial infarction type 2; J96.01 Acute respiratory failure with hypoxia; I13.2 Hypertensive heart and chronic kidney disease with heart failure and with stage 5 chronic kidney disease, or end stage renal disease; G92 Toxic encephalopathy; I95.3 Hypotension of hemodialysis; J18.9 Pneumonia, unspecified organism; L89.156 Pressure-induced deep tissue damage of sacral region; E87.1 Hypo-osmolality and hyponatremia; E11.22 Type 2 diabetes mellitus with diabetic chronic kidney disease; Z68.42 Body mass index [BMI] 45.0-49.9, adult; N25.0 Renal osteodystrophy; N18.6 End stage renal disease; Z99.2 Dependence on renal dialysis; D63.1 Anemia in chronic kidney disease; E78.5 Hyperlipidemia, unspecified; Z79.4 Long term (current) use of insulin; E66.2 Morbid (severe) obesity with alveolar hypoventilation; F32.9 Major depressive disorder, single episode, unspecified; F41.9 Anxiety disorder, unspecified; J44.9 Chronic obstructive pulmonary disease, unspecified; R53.1 Weakness; L98.8 Other specified disorders of the skin and subcutaneous tissue; S71.112A Laceration without foreign body, left thigh, initial encounter; X58.XXXA Exposure to other specified factors, initial encounter; Y93.9 Activity, unspecified; Y92.009 Unspecified place in unspecified non-institutional (private) residence as the place of occurrence of the external cause; J44.0 Chronic obstructive pulmonary disease with (acute) lower respiratory infection; I50.33 Acute on chronic diastolic (congestive) heart failure
CPT/HCPCS: 36415; 71045-TC; 80048-TC; 80053-TC; 80061-TC; 80076-TC; 81000-TC; 82140-TC; 82272-TC; 82728-TC; 82962-TC; 83540-TC; 83735-TC; 83880; 83970; 84100-TC; 84484-TC; 85025-TC; 87040-TC; 87081-TC; 90935-TC; 93307-TC; 97530-TC; A6403; G0378; J0692; J1815; J7050; J7060

== ENCOUNTER 2021-12-06 13:24 | Inpatient (IN) | payer OTHER ==
[~2021-12-06] VITALS: Ht 170.2 cm; Wt 136.5 kg
[~2021-12-06 13:24] MED LIST changes: -HYDR-4076 PO; -LACT10SO PO; +LACT10SO3 PO; +LEVO500T23 PO
--- NOTE | 2021-12-06 14:16 | NUR ---
IV LINE IS ESTABLISHED, BLOOD SPECIMEN COLLECTED AND SENT TO THE LAB. THE LINE IS SALINE LOCKED.
--- NOTE | 2021-12-06 14:37 | NUR ---
THE PATIENT IS DIALYSIS PATIENT AND ACCORDING TO HER SHE DOES NOT PRODUCE URINE. DR LAU MADE AWARE.
--- NOTE | 2021-12-06 14:45 | NUR ---
FLOAT NURSE AT THE BEDSIDE
--- NOTE | 2021-12-06 14:47 | NUR ---
COVID ANTIGEN SWAB DONE AND SENT TO THE LAB
[2021-12-06] MEDS ORDERED: ASCO-352 PO (14:54)
[2021-12-06] MEDS ORDERED: ZINC50TA69 PO (14:54)
[2021-12-06] MEDS ORDERED: HYDR-4076 PO (14:54)
[2021-12-06] MEDS ORDERED: CHOL100043 PO (14:54)
[2021-12-06] MEDS ORDERED: CLOP75TA15 PO (14:54)
[2021-12-06] MEDS ORDERED: ALPR0.5T PO (14:54)
[2021-12-06] MEDS ORDERED: ASPI-1420 PO (14:54)
[2021-12-06] MEDS ORDERED: ZOLP5TAB2 PO (14:54)
[2021-12-06 15:43] LABS: BASOPHILS % (AUTO) 0.7 % (0.0-2.0); EOSINOPHILS % (AUTO) 0.9 % (0.0-6.0); HEMATOCRIT 32 % (33-45); HEMOGLOBIN 10.2 g/dL (11.5-14.8); LYMPHOCYTES % (AUTO) 17.8 % (20.0-44.0); MEAN CORPUSCULAR HGB CONC 32 g/dl (31.0-36.0); MEAN CORPUSCULAR VOLUME 95 fL (82-100); MONOCYTES # (AUTO) 0.3 K/uL (0.1-1.30); NEUTROPHILS % (AUTO) 74.6 % (43.0-81.0); PLATELET COUNT (AUTO) 118 K/uL (150-450); WHITE BLOOD COUNT (AUTO) 5.4 K/uL (4.3-11.0)
[2021-12-06] MEDS ORDERED: HYDROCODONE/APAP 5/325MG TABLET ONE (16:24)
[2021-12-06 16:27] LABS: ALANINE AMINOTRANSFERASE 18 U/L (12-78); ALBUMIN 2.8 g/dL (3.4-5.0); ALKALINE PHOSPHATASE 141 U/L (46-116); ASPARTATE AMINOTRANSFERASE 22 U/L (15-37); BILIRUBIN,DIRECT 0.6 mg/dL (0.0-0.2); BILIRUBIN,TOTAL 1.1 mg/dL (0.2-1.0); CALCIUM, SERUM 8.9 mg/dL (8.5-10.1); CARBON DIOXIDE 28 mmol/L (21-32); CHLORIDE 96 mmol/L (98-107); CREATININE 4.1 mg/dL (0.6-1.3); GLUCOSE 224 mg/dL (74-106); POTASSIUM 3.5 mmol/L (3.5-5.1); SODIUM SERUM 133 mmol/L (136-145); TOTAL PROTEIN, SERUM 8.2 g/dL (6.4-8.2); UREA NITROGEN, BLOOD 22 mg/dL (7-18)
[2021-12-06] MEDS ORDERED: HYDROCODONE/APAP 5/325MG TABLET PO ONE (16:30)
--- NOTE | 2021-12-06 16:31 | NUR ---
LAB CALLED TRIPONIN [phone]
[2021-12-06] MEDS ORDERED: ASPIRIN 81 MG TAB.CHEW PO ONE (17:00)
[2021-12-06] MEDS ORDERED: IV NS 0.9% 500 ML BAG IV ONE (17:00)
[2021-12-06] MEDS ORDERED: CEFTRIAXONE 1GM BAG (ER ONLY) 50 ML IV ONE ×2 (17:00→17:08)
[2021-12-06] MEDS ORDERED: ASPIRIN 81 MG TAB.CHEW ONE (17:08)
--- NOTE | 2021-12-06 19:13 | NUR ---
REPORT GIVEN TO NURSE CHRIS FOR RENATO
--- NOTE | 2021-12-06 19:39 | NUR ---
CALLED RICHARD BARRETO
[2021-12-06] MEDS ORDERED: VANCOMYCIN 1 GM in IV D5W 250 ML IV ONE (20:30)
[2021-12-06] MEDS ORDERED: VANCOMYCIN 1 GM VIAL ONE (20:32)
--- NOTE | 2021-12-06 22:46 | NUR ---
PT RESTING COMFORTABLY NO C/O AT THIS TIME.
[2021-12-06] MEDS ORDERED: MAG HYDROX/AL HYDROX/SIMETH 30 ML UDC PO PRN (23:00)
[2021-12-06] MEDS ORDERED: ZOLPIDEM TARTRATE 5 MG TABLET PO PRN (23:00)
[2021-12-06] MEDS ORDERED: Z GUARD REMEDY 4 OZ OINT TP PRN (23:00)
[2021-12-06] MEDS ORDERED: ACETAMINOPHEN 325 MG TABLET PO PRN (23:00)
--- NOTE | 2021-12-07 00:09 | NUR ---
TROPONIN 0.606
[2021-12-07] MEDS ORDERED: HYDROCODONE/APAP 5/325MG TABLET ONE (04:54)
[2021-12-07] MEDS: HYDROCODONE/APAP 5/325MG TABLET PO PRN ×2 (05:06→22:47)
[2021-12-07 05:25] LABS: BASOPHILS % (AUTO) 0.5 % (0.0-2.0); EOSINOPHILS % (AUTO) 0.8 % (0.0-6.0); HEMATOCRIT 28 % (33-45); HEMOGLOBIN 9.2 g/dL (11.5-14.8); LYMPHOCYTES # (AUTO) 1.2 K/uL (0.8-4.8); LYMPHOCYTES % (AUTO) 18.1 % (20.0-44.0); MEAN CORPUSCULAR HGB CONC 33 g/dl (31.0-36.0); MEAN CORPUSCULAR VOLUME 95 fL (82-100); MONOCYTES # (AUTO) 0.5 K/uL (0.1-1.30); MONOCYTES % (AUTO) 7.7 % (2.0-12.0); NEUTROPHILS # (AUTO) 4.8 K/uL (1.8-8.9); NEUTROPHILS % (AUTO) 72.9 % (43.0-81.0); PLATELET COUNT (AUTO) 103 K/uL (150-450); RED BLOOD CELL COUNT(AUTO) 2.97 MIL/uL (4.0-5.2); WHITE BLOOD COUNT (AUTO) 6.6 K/uL (4.3-11.0)
[2021-12-07 06:03] LABS: CALCIUM, SERUM 8.3 mg/dL (8.5-10.1); MAGNESIUM 2.1 mg/dL (1.8-2.4); PHOSPHORUS 3.7 mg/dL (2.5-4.9); POTASSIUM 3.8 mmol/L (3.5-5.1)
[2021-12-07] MEDS ORDERED: PANTOPRAZOLE 40 MG TABLET.DR PO ONE (07:59)
[2021-12-07] MEDS ORDERED: ASPIRIN EC 81 MG TABLET.DR PO ONE (07:59)
--- NOTE | 2021-12-07 08:00 | NUR ---
THE PATIENT IS RECEIVED IN ER BED #12. THE PATIENT IS ALERT AND ORIENTED X3. DENIES PAIN. IN ROOM AIR AND DENIES SOB. RESPIRATION REGULAR AND UNLABORED. ATTACHED TO THE MONITOR. WARM BLANKET PROVIDED FOR COMFORT. WILL CONTINUE TO MONITOR THE PATIENT.
[2021-12-07] MEDS: ASPIRIN EC 81 MG TABLET.DR PO SCH (08:03)
[2021-12-07] MEDS: PANTOPRAZOLE 40 MG TABLET.DR PO SCH (08:03)
--- NOTE | 2021-12-07 08:15 | NUR ---
US TECH AT THE BEDSIDE
[2021-12-07] MEDS ORDERED: ASPIRIN EC 81 MG TABLET.DR PO SCH (09:00)
[2021-12-07] MEDS ORDERED: CLOPIDOGREL BISULFATE 75 MG TABLET PO SCH (09:00)
[2021-12-07] MEDS ORDERED: DEXTROSE 50%-WATER 50 ML DISP.SYRIN IV PRN (09:00)
[2021-12-07] MEDS ORDERED: hydrALAZINE HCL 25 MG TABLET PO PRN (09:00)
[2021-12-07] MEDS ORDERED: VANCOMYCIN 500 MG in IV D5W 100 ML IV PRN (09:00)
--- NOTE | 2021-12-07 09:00 | NUR ---
REPORT GIVEN TO VAN CANNON FOR RENATO
--- NOTE | 2021-12-07 10:36 | NUR ---
THE PATIENT IS TRANSFERED TO ASSIGNED ROOM IN STABLE CONDITION AND PER ACLS POLICY
[2021-12-07 10:40] VITALS: BP 101/50
[2021-12-07] MEDS: ESCITALOPRAM OXALATE (10 MG) 10 MG TABLET PO SCH (11:22)
[2021-12-07] MEDS: ASCORBIC ACID 500 MG TABLET PO SCH (11:23)
[2021-12-07] MEDS: ZINC SULFATE 220 MG CAPSULE PO SCH (11:23)
[2021-12-07] MEDS: CLOPIDOGREL BISULFATE 75 MG TABLET PO SCH (11:23)
[2021-12-07] MEDS: BLOOD SUGAR DIAGNOSTIC 1 EACH STRIP IN SCH ×3 (11:41→23:13)
[2021-12-07] MEDS: INSULIN REGULAR, HUMAN 100 UNIT/ML 3 ML VIAL SQ PRN ×3 (11:42→23:06)
--- NOTE | 2021-12-07 11:54 | NUR ---
[facility] ADMITTING NOTES PT ADMITTED TO UNIT AT 1035 VIA GURNEY ACCOMPANIED BY 2 TRANSPORTERS FROM E.[facility]. REPORT GIVEN EARLIER VIA PHONE BY KARLOS RN WITH DX OF SEPSIS. PT IS A/O X4. ABLE TO MAKE NEEDS KNOWN, NO C/O PAIN AT THIS TIME. PT ORIENTED TO ROOM AND STAFF. ON ROOM AIR, TOLERATING WELL WITH NO ACUTE RESPIRATORY DISTRESS NOTED. V/S TAKEN AND RECORDED. PT WITH IV ACCESS NOTED ON RAC G#20 INTACT AND PATENT. PERMACATH PRESENT ON RCW WITH DRESSING C/D/I. PT PLACED ON TELE-MONITOR WITH CURRENT TREADING OF NSR WITH PAC'S AND PVC'S, HR ON THE 90'S, NO C/O CARDIAC DISTRESS VOICED. PHOTOS OF SKIN ISSUES TAKEN AND FILED ON HER CHART. SAFETY MEASURES INITIATED: BED PLACED IN LOWEST LOCKED POSITION WITH SR-UP X2 AND CALL LIGHT W/I EASY REACH OF PT. WILL CONTINUE TO MONITOR PT.
[2021-12-07 12:00] VITALS: BP 100/46
[2021-12-07] MEDS: CALCIUM ACETATE 667 MG CAP/TAB PO SCH ×2 (12:13→17:38)
[2021-12-07 16:00] VITALS: BP 100/52
[2021-12-07] MEDS ORDERED: CEFTRIAXONE 1 G in IV D5W 50 ML IV SCH (17:00)
[2021-12-07] MEDS ORDERED: EPOETIN ALFA-EPBX 10,000 UNIT/ML VIAL IV ONE (17:30)
--- NOTE | 2021-12-07 18:05 | NUR ---
RN NOTES RETACRIT 10,OOO UNITS ADMINISTERED VIA IV PER MD ORDER.
--- NOTE | 2021-12-07 18:33 | NUR ---
HOSPITALITY AIDE CLOSING NOTES PT IN BED AWAKE WITH DAUGHTER AT BEDSIDE AT THIS TIME. HOB ELEVATED. A/O X4. ABLE TO MAKE NEEDS KNOWN. ON ROOM AIR, TOLERATING WELL WITH NO ACUTE RESPIRATORY DISTRESS NOTED. IV ACCESS ON RAC G#20 INTACT, PATENT AND FLUSHES WELL. PERMACATH ON RCW IN PLACE WITH DRESSING C/D/I. TELE-MONITOR SHOWS CURRENT READING OF NSR WITH PAC'S, PVC'S, HR 86 AT THIS TIME, NO CARDIAC DISTRESS VOICED. ALL NEEDS AND CARE ATTENDED WELL. SAFETY MEASURES IN PLACED: BED IN LOWEST LOCKED POSITION WITH SIDE-RAILS UP X2. CALL LIGHT AND BEDSIDE TABLE W/IN EASY REACH OF PT. WILL ENDORSE RENATO TO INDUSTRIAL CHEMISTRY TEACHER NURSE.
[2021-12-07 20:00] VITALS: BP 100/53
[2021-12-07] MEDS: ALPRAZOLAM 0.5 MG TABLET PO PRN (20:45)
[2021-12-07] MEDS: MAGNESIUM HYDROXIDE 30 ML UDC PO PRN (20:48)
[2021-12-07] MEDS: HEPARIN SODIUM, PORCINE 5000 UNITS/1 ML VIAL SQ SCH (20:48)
[2021-12-07] MEDS: ATORVASTATIN 10 MG TABLET PO SCH (22:47)
[2021-12-07] MEDS: INSULIN GLARGINE, 100 UNIT/ML CARTRIDGE SQ SCH (23:04)
[2021-12-07] MEDS: ZOLPIDEM TARTRATE 5 MG TABLET PO SCH (23:13)
[2021-12-08] VITALS: BP 106/53
[2021-12-08 04:00] VITALS: BP 107/47
--- NOTE | 2021-12-08 06:35 | NUR ---
Patient has been stable overnight. A&Ox4. SR with PACs on monitor 70s-80s. Patient reports constipation, MOM given with no effect will endorse to AM shift possible need for suppository. Only dribbles of urine on this shift dina color -to have dialysis today 12/08. RFA#20G intact and patent. No s/s of hypo or hyperglycemic reactions noted. Denies chest pain, SOB, only c/o back pain x1 overnight relieved by PRN [place].
[2021-12-08] MEDS: BLOOD SUGAR DIAGNOSTIC 1 EACH STRIP IN SCH ×4 (07:02→21:36)
[2021-12-08] MEDS: INSULIN REGULAR, HUMAN 100 UNIT/ML 3 ML VIAL SQ PRN ×4 (07:03→21:37)
--- NOTE | 2021-12-08 07:23 | NUR ---
WOUND CARE CONSULT: PT RESTING AT THIS TIME. REVIEWED CHART, NURSING DOCUMENTATION AND PHOTOS WHICH INDICATE REDNESS TO SKIN FOLDS, SCARRING WITH OPEN AREAS TO SACRUM AND BUTTOCKS WELL AREAS OF SKIN DISCOLORATION, ALL PRESENT ON ADMISSION. DR DIMAS TO BE CALLED THIS AM FOR SURGICAL CONSULTATION. RECOMMENDATIONS MADE FOR SKIN PROTECTION. DISCUSSED WITH NURSING STAFF. MD IN AGREEMENT WITH PLAN OF CARE.
--- NOTE | 2021-12-08 07:37 | NUR ---
PEAR PICKER OPENING NOTES PT RECEIVED THIS AM A/O X 4, RESTING SUPINE IN BED. PT ABLE TO MAKE NEEDS KNOWN. HR 87 AT NSR WITH NO COMPLAINTS OF DISCOMFORT OR CARDIAC DISTRESS AT THIS TIME. PT ON ROOM AIR, TOLERATING WELL. R AC 20 G SALINE LOCK INTACT AND PATENT. PERMACATH PRESENT ON RCW WITH DRESSING C/D/I. BED IN LOWEST LOCKED POSITION WITH SR-UP X2 AND CALL LIGHT WITHIN EASY REACH OF PT. WILL CONTINUE TO MONITOR PT.
[2021-12-08 07:42] LABS: BASOPHILS % (AUTO) 0.5 % (0.0-2.0); EOSINOPHILS % (AUTO) 1.6 % (0.0-6.0); HEMATOCRIT 27 % (33-45); LYMPHOCYTES # (AUTO) 1.5 K/uL (0.8-4.8); LYMPHOCYTES % (AUTO) 24.4 % (20.0-44.0); MEAN CORPUSCULAR HGB CONC 33 g/dl (31.0-36.0); MEAN CORPUSCULAR VOLUME 95 fL (82-100); MONOCYTES # (AUTO) 0.6 K/uL (0.1-1.30); MONOCYTES % (AUTO) 9.2 % (2.0-12.0); NEUTROPHILS # (AUTO) 3.9 K/uL (1.8-8.9); NEUTROPHILS % (AUTO) 64.3 % (43.0-81.0); PLATELET COUNT (AUTO) 105 K/uL (150-450); RED BLOOD CELL COUNT(AUTO) 2.84 MIL/uL (4.0-5.2); WHITE BLOOD COUNT (AUTO) 6.1 K/uL (4.3-11.0)
[2021-12-08 08:00] VITALS: BP 99/51
[2021-12-08] MEDS ORDERED: VANCOMYCIN 1 GM in IV D5W 250 ML IV ONE (08:00)
[2021-12-08 08:08] LABS: CALCIUM, SERUM 8.3 mg/dL (8.5-10.1); CREATININE 5.8 mg/dL (0.6-1.3); POTASSIUM 3.6 mmol/L (3.5-5.1)
[2021-12-08] MEDS: CALCIUM ACETATE 667 MG CAP/TAB PO SCH ×3 (08:10→17:38)
[2021-12-08] MEDS: PANTOPRAZOLE 40 MG TABLET.DR PO SCH (08:10)
[2021-12-08] MEDS: ASPIRIN EC 81 MG TABLET.DR PO SCH (09:10)
[2021-12-08] MEDS: ESCITALOPRAM OXALATE (10 MG) 10 MG TABLET PO SCH (09:10)
[2021-12-08] MEDS: CHOLECALCIFEROL 1,000 UNIT TABLET (VIT D3) PO SCH (09:10)
[2021-12-08] MEDS: CLOPIDOGREL BISULFATE 75 MG TABLET PO SCH (09:11)
[2021-12-08] MEDS: ASCORBIC ACID 500 MG TABLET PO SCH (09:11)
[2021-12-08] MEDS: HEPARIN SODIUM, PORCINE 5000 UNITS/1 ML VIAL SQ SCH ×2 (09:12→21:35)
[2021-12-08] MEDS: ZINC SULFATE 220 MG CAPSULE PO SCH (09:38)
[2021-12-08 09:47] LABS: HDL CHOLESTEROL 12 mg/dL (40-60); LDL 40 mg/dL (0-99); TRIGLYCERIDES 168 mg/dL (30-150)
[2021-12-08 11:01] LABS: CHOLESTEROL 85 mg/dL (<200)
[2021-12-08] MEDS ORDERED: NEPRO VAN 237 ML CAN PO PRN (14:00)
[2021-12-08] MEDS: ALPRAZOLAM 0.5 MG TABLET PO PRN (15:52)
[2021-12-08 16:00] VITALS: BP 99/63
[2021-12-08] MEDS ORDERED: VANCOMYCIN 1 GM in IV D5W 250ml IV ONE (16:00)
--- NOTE | 2021-12-08 16:00 | NUR ---
RN NOTES PT VERBALIZED THAT SHE'S ANXIOUS AND REQUESTED FOR XANAX. PRN XANAX 0.5MG PO GIVEN AT 1552. WILL CONTINUE TO MONITOR.
[2021-12-08] MEDS: HYDROCODONE/APAP 5/325MG TABLET PO PRN (17:45)
--- NOTE | 2021-12-08 17:46 | NUR ---
RN NOTES PT C/O GENERALIZED PAIN, 7/10 SCALE. PRN [place] 5/325TAB PO GIVEN AT 1745. WILL CONTINUE TO MONITOR AND REASSESS PT.
--- NOTE | 2021-12-08 18:45 | NUR ---
MS RN CLOSING NOTES PT IN BED ASLEEP AT THIS TIME, EASILY AROUSABLE. HOB ELEVATED. A/O X 4,ABLE TO MAKE NEEDS KNOWN. TELEMONITOR IN PLACE READING NSR, HR IN 80S WITH NO COMPLAINTS OF DISCOMFORT OR CARDIAC DISTRESS AT THIS TIME. PT ON ROOM AIR, TOLERATING WELL. R AC 20 G SALINE LOCK INTACT AND PATENT. PERMACATH PRESENT ON RCW WITH DRESSING C/D/I. BED IN LOWEST LOCKED POSITION WITH SR-UP X2 AND CALL LIGHT WITHIN EASY REACH OF PT. WILL ENDORSE TO NIGHT RENATO TO SYNTHETIC STAPLE EXTRUDER NURSE.
[2021-12-08 20:00] VITALS: BP 103/50
[2021-12-08] MEDS: ATORVASTATIN 10 MG TABLET PO SCH (22:00)
[2021-12-08] MEDS: ZOLPIDEM TARTRATE 5 MG TABLET PO SCH (22:00)
[2021-12-09] MEDS: INSULIN GLARGINE, 100 UNIT/ML CARTRIDGE SQ SCH ×2 (00:07→21:43)
[2021-12-09] MEDS ORDERED: VANCOMYCIN 1 GM VIAL ONE (00:56)
[2021-12-09] MEDS ORDERED: VANCOMYCIN POST DIALYSIS 500MG IV PRN ×2 (01:00)
[2021-12-09] MEDS: BLOOD SUGAR DIAGNOSTIC 1 EACH STRIP IN SCH ×4 (06:31→21:11)
[2021-12-09] MEDS: INSULIN REGULAR, HUMAN 100 UNIT/ML 3 ML VIAL SQ PRN ×4 (06:32→21:44)
--- NOTE | 2021-12-09 06:49 | NUR ---
MS RN CLOSING NOTES PT A/O X 4, RESTING SUPINE IN BED. PT ABLE TO MAKE NEEDS KNOWN. NO COMPLAINTS OF DISCOMFORT OR CARDIAC DISTRESS AT THIS TIME. PT ON ROOM AIR, TOLERATING WELL. R AC 20 G SALINE LOCK INTACT AND PATENT. PERMACATH PRESENT ON RCW WITH DRESSING C/D/I. PT HAS DIALYSIS YESTERDAY WITH 2.2L OUT PUT TOLERATED WELL. BED IN LOWEST LOCKED POSITION WITH SR-UP X2 AND CALL LIGHT WITHIN EASY REACH OF PT. WILL ENDORSE CARE TO DAY SHIFT NURSE.
[2021-12-09 06:59] LABS: BASOPHILS % (AUTO) 0.6 % (0.0-2.0); EOSINOPHILS % (AUTO) 1.8 % (0.0-6.0); HEMATOCRIT 28 % (33-45); HEMOGLOBIN 9.1 g/dL (11.5-14.8); LYMPHOCYTES # (AUTO) 1.4 K/uL (0.8-4.8); LYMPHOCYTES % (AUTO) 22.7 % (20.0-44.0); MEAN CORPUSCULAR HGB CONC 33 g/dl (31.0-36.0); MEAN CORPUSCULAR VOLUME 95 fL (82-100); MONOCYTES # (AUTO) 0.4 K/uL (0.1-1.30); MONOCYTES % (AUTO) 7.2 % (2.0-12.0); NEUTROPHILS % (AUTO) 67.7 % (43.0-81.0); PLATELET COUNT (AUTO) 115 K/uL (150-450); RED BLOOD CELL COUNT(AUTO) 2.89 MIL/uL (4.0-5.2)
[2021-12-09 07:04] LABS: CALCIUM, SERUM 8.6 mg/dL (8.5-10.1); CREATININE 4.3 mg/dL (0.6-1.3); POTASSIUM 3.7 mmol/L (3.5-5.1)
--- NOTE | 2021-12-09 07:30 | NUR ---
MS RN OPENING NOTES PT RECEIVED THIS AM A/O X 4, RESTING SUPINE IN BED. PT ABLE TO MAKE NEEDS KNOWN. NO COMPLAINTS OF DISCOMFORT OR CARDIAC DISTRESS AT THIS TIME. PT ON ROOM AIR, TOLERATING WELL. R FA 20 G SALINE LOCK INTACT AND PATENT. PERMACATH PRESENT ON RCW WITH DRESSING C/D/I. BED IN LOWEST LOCKED POSITION WITH SR-UP X2 AND CALL LIGHT WITHIN EASY REACH OF PT. WILL CONTINUE TO MONITOR PT.
[2021-12-09] MEDS: PANTOPRAZOLE 40 MG TABLET.DR PO SCH (08:09)
[2021-12-09] MEDS: CALCIUM ACETATE 667 MG CAP/TAB PO SCH ×3 (08:09→18:28)
[2021-12-09] MEDS: CLOPIDOGREL BISULFATE 75 MG TABLET PO SCH (08:25)
[2021-12-09] MEDS: ESCITALOPRAM OXALATE (10 MG) 10 MG TABLET PO SCH (08:25)
[2021-12-09] MEDS: ZINC SULFATE 220 MG CAPSULE PO SCH (08:26)
[2021-12-09] MEDS: ASPIRIN EC 81 MG TABLET.DR PO SCH (08:26)
[2021-12-09] MEDS: CHOLECALCIFEROL 1,000 UNIT TABLET (VIT D3) PO SCH (08:26)
[2021-12-09] MEDS: ASCORBIC ACID 500 MG TABLET PO SCH (08:27)
[2021-12-09] MEDS: HEPARIN SODIUM, PORCINE 5000 UNITS/1 ML VIAL SQ SCH ×2 (08:30→21:12)
[2021-12-09] MEDS: HYDROCODONE/APAP 5/325MG TABLET PO PRN (10:22)
[2021-12-09] MEDS ORDERED: AMPICILLIN 2 GM in IV NS 0.9% 50 ML IV SCH (15:00)
[2021-12-09] MEDS: AMPICILLIN 2 GM in IV NS 0.9% 100 ML IV SCH (15:12)
[2021-12-09] MEDS ORDERED: MAGNESIUM CITRATE 296 ML BOTTLE PO ONE (15:30)
--- NOTE | 2021-12-09 19:30 | NUR ---
MS RN CLOSING NOTES PT A/O X 4, RESTING IN BED. PT ABLE TO MAKE NEEDS KNOWN. NO COMPLAINTS OF DISCOMFORT OR CARDIAC DISTRESS AT THIS TIME. PT ON ROOM AIR, TOLERATING WELL. R FA 20 G SALINE LOCK INTACT AND PATENT. PERMACATH PRESENT ON RCW WITH DRESSING . ALL DUE MEDS AND TREATMENTS GIVEN ORDERED.BED IN LOWEST LOCKED POSITION WITH SR-UP X2 AND CALL LIGHT WITHIN EASY REACH OF PT. WILL ENDORSE INCOMING SHIFT FOR RENATO.
[2021-12-09 20:00] VITALS: BP 104/62
[2021-12-09] MEDS: MAGNESIUM HYDROXIDE 30 ML UDC PO PRN (20:30)
[2021-12-09] MEDS: ATORVASTATIN 10 MG TABLET PO SCH (21:10)
[2021-12-09] MEDS: ZOLPIDEM TARTRATE 5 MG TABLET PO SCH (21:11)
[2021-12-10] MEDS: AMPICILLIN 2 GM in IV NS 0.9% 100 ML IV SCH ×2 (03:10→17:25)
[2021-12-10] MEDS: INSULIN REGULAR, HUMAN 100 UNIT/ML 3 ML VIAL SQ PRN ×4 (06:31→22:19)
[2021-12-10] MEDS: BLOOD SUGAR DIAGNOSTIC 1 EACH STRIP IN SCH ×4 (06:31→22:01)
--- NOTE | 2021-12-10 06:38 | NUR ---
MS RN NOTES AWAKE & RESPONSIVE. NOT IN ANY DISTRESS. NO SOB NOTED. DENIES ANY PAIN OR DISCOMFORT AT THIS TIME. WITH IV-HL PATENT & INTACT. AM CARE DONE. MONITORED ACCORDINGLY. CALL LIGHT WITHIN REACH. BED IN LOWEST POSITION. SR UP X 3 WITH BED ALARM ON FOR SAFETY. WILL ENDORSE TO NEXT SHIFT.
[2021-12-10 07:08] LABS: CREATININE 5.6 mg/dL (0.6-1.3); POTASSIUM 3.9 mmol/L (3.5-5.1)
[2021-12-10 07:10] LABS: BASOPHILS # (AUTO) 0.1 K/uL (0.0-0.2); BASOPHILS % (AUTO) 0.7 % (0.0-2.0); EOSINOPHILS % (AUTO) 1.4 % (0.0-6.0); HEMATOCRIT 31 % (33-45); HEMOGLOBIN 10.1 g/dL (11.5-14.8); LYMPHOCYTES # (AUTO) 1.4 K/uL (0.8-4.8); LYMPHOCYTES % (AUTO) 18.9 % (20.0-44.0); MEAN CORPUSCULAR HGB CONC 33 g/dl (31.0-36.0); MEAN CORPUSCULAR VOLUME 95 fL (82-100); MONOCYTES # (AUTO) 0.6 K/uL (0.1-1.30); MONOCYTES % (AUTO) 8.5 % (2.0-12.0); NEUTROPHILS # (AUTO) 5.4 K/uL (1.8-8.9); NEUTROPHILS % (AUTO) 70.5 % (43.0-81.0); PLATELET COUNT (AUTO) 146 K/uL (150-450); RED BLOOD CELL COUNT(AUTO) 3.25 MIL/uL (4.0-5.2); WHITE BLOOD COUNT (AUTO) 7.6 K/uL (4.3-11.0)
--- NOTE | 2021-12-10 07:43 | NUR ---
RN OPENING NOTES Patient seen comfortably lying in bed, no SOB, no apparent distress noted, breathing even and unlabored, no grimacing. Call light left within reach, safety precautions in place, brakes locked, side rails up X 2, will monitor closely for any changes.
[2021-12-10] MEDS: ESCITALOPRAM OXALATE (10 MG) 10 MG TABLET PO SCH (08:10)
[2021-12-10] MEDS: CHOLECALCIFEROL 1,000 UNIT TABLET (VIT D3) PO SCH (08:10)
[2021-12-10] MEDS: ZINC SULFATE 220 MG CAPSULE PO SCH (08:11)
[2021-12-10] MEDS: CLOPIDOGREL BISULFATE 75 MG TABLET PO SCH (08:11)
[2021-12-10] MEDS: CALCIUM ACETATE 667 MG CAP/TAB PO SCH ×3 (08:13→17:19)
[2021-12-10] MEDS: HEPARIN SODIUM, PORCINE 5000 UNITS/1 ML VIAL SQ SCH ×2 (08:13→21:57)
[2021-12-10] MEDS: ASCORBIC ACID 500 MG TABLET PO SCH (08:13)
[2021-12-10] MEDS: PANTOPRAZOLE 40 MG TABLET.DR PO SCH (08:13)
[2021-12-10] MEDS: ASPIRIN EC 81 MG TABLET.DR PO SCH (08:14)
--- NOTE | 2021-12-10 09:00 | NUR ---
Report given to Chuck BARTH for continuity of care.
--- NOTE | 2021-12-10 10:00 | NUR ---
m/s sample maker original: notes received pt in bed soundly asleep. resp. even and unlabored. no distress noted. will continue to monitor.
--- NOTE | 2021-12-10 11:05 | NUR ---
m/s housing installer: surgeon consult vamshi (fnp) here and spoke to dr. gates. vamshi (fnp) spoke to pt regarding permacath removal today. also pt for hd tx to use her fistula. spoke to hd nurse and aware. pt verbalized understanding. instructed to call for assistance. will continue to monitor.
--- NOTE | 2021-12-10 13:50 | NUR ---
m/s re dye hand: notes hd in progress, pt sounds asleep. no distress noted. call light within reach. will continue to monitor.
[2021-12-10] MEDS ORDERED: LIDOCAINE 2% 20 ML MDV TP ONE (14:00)
--- NOTE | 2021-12-10 14:00 | NUR ---
m/s development team lead: notes time out agreed on by pt, groundhand, and nurse. pat (groundhand) at bedside to remove the right chest wall permacath with lidocaine. pt tolerated procedure. pressure dressing applied by groundhand. tip culture sent to lab.
--- NOTE | 2021-12-10 16:00 | NUR ---
m/s reinforcing steel placer: notes hd tx in progress. will continue to monitor.
[2021-12-10] MEDS: ONDANSETRON HCL/PF 4 MG/2 ML VIAL IVP PRN (17:34)
--- NOTE | 2021-12-10 18:05 | NUR ---
m/s principal strategist: notes daughter here and concerns about coughing when just eating since yesterday. swallow eval done with [facility] soft diet recommendation with aspiration precaution. dr. davey made aware re: daughter's concern with no new order. will continue to monitor. instructed to call for assistance.
--- NOTE | 2021-12-10 19:06 | NUR ---
m/s foil cutter: notes bedside report given to tatiana (rn) for continuity of care.
[2021-12-10 20:00] VITALS: BP 97/53
--- NOTE | 2021-12-10 20:00 | NUR ---
RECEIVED PATIENT C/O DRY COUGH AND SHORT OF BREATH 02 SAT 99 ON 2 LITERS N/C RESP 22/MIN B/P 122/68 OMARI 98.2 hr 111 CALLED THE md WAS ABLE TO GET RESP TX ORDER AND COUGH SYRUP, WITH TX AND COUGH SYRUP THIS WAS EFFECTIVE FOR THE COUGH AND SOB
[2021-12-10] MEDS: ALBUTEROL FS 2.5 MG/3 ML VIAL.NEB NEB PRN (21:29)
[2021-12-10] MEDS ORDERED: GUAIFENESIN/CODEINE 10 ML UDC PO PRN (21:30)
[2021-12-10] MEDS: ZOLPIDEM TARTRATE 5 MG TABLET PO SCH (22:02)
[2021-12-10] MEDS: ATORVASTATIN 10 MG TABLET PO SCH (22:11)
[2021-12-10] MEDS: INSULIN GLARGINE, 100 UNIT/ML CARTRIDGE SQ SCH (22:16)
[2021-12-10] MEDS: GUAIFENESIN/CODEINE 10 ML UDC PO PRN (22:27)
[2021-12-11] MEDS: HYDROCODONE/APAP 5/325MG TABLET PO PRN ×2 (02:02→17:01)
[2021-12-11] MEDS: AMPICILLIN 2 GM in IV NS 0.9% 100 ML IV SCH ×2 (02:57→15:02)
[2021-12-11] MEDS: BLOOD SUGAR DIAGNOSTIC 1 EACH STRIP IN SCH ×4 (06:01→22:49)
[2021-12-11 07:15] LABS: BASOPHILS % (AUTO) 0.5 % (0.0-2.0); EOSINOPHILS % (AUTO) 1.4 % (0.0-6.0); HEMATOCRIT 29 % (33-45); HEMOGLOBIN 9.4 g/dL (11.5-14.8); LYMPHOCYTES # (AUTO) 1.5 K/uL (0.8-4.8); LYMPHOCYTES % (AUTO) 19.1 % (20.0-44.0); MEAN CORPUSCULAR HGB CONC 33 g/dl (31.0-36.0); MEAN CORPUSCULAR VOLUME 96 fL (82-100); MONOCYTES # (AUTO) 0.7 K/uL (0.1-1.30); MONOCYTES % (AUTO) 9.1 % (2.0-12.0); NEUTROPHILS # (AUTO) 5.6 K/uL (1.8-8.9); NEUTROPHILS % (AUTO) 69.9 % (43.0-81.0); PLATELET COUNT (AUTO) 152 K/uL (150-450); RED BLOOD CELL COUNT(AUTO) 3.01 MIL/uL (4.0-5.2)
[2021-12-11 07:35] LABS: CALCIUM, SERUM 8.3 mg/dL (8.5-10.1); POTASSIUM 3.8 mmol/L (3.5-5.1)
--- NOTE | 2021-12-11 07:43 | NUR ---
RN OPENING NOTES Patient seen comfortably lying in bed, no apparent distress noted, respirations even and unlabored, no SOB, denies any pain or discomfort at this time, no grimacing. Call light left within reach, safety precautions in place, brakes locked, side rails up X 2, will monitor closely for any changes.
[2021-12-11 08:33] VITALS: BP 95/39
[2021-12-11] MEDS: HEPARIN SODIUM, PORCINE 5000 UNITS/1 ML VIAL SQ SCH ×2 (09:00→23:02)
[2021-12-11] MEDS: PANTOPRAZOLE 40 MG TABLET.DR PO SCH (09:01)
[2021-12-11] MEDS: ASPIRIN EC 81 MG TABLET.DR PO SCH (09:01)
[2021-12-11] MEDS: ZINC SULFATE 220 MG CAPSULE PO SCH (09:01)
[2021-12-11] MEDS: GUAIFENESIN/CODEINE 10 ML UDC PO PRN (09:01)
[2021-12-11] MEDS: ALPRAZOLAM 0.5 MG TABLET PO PRN (09:01)
[2021-12-11] MEDS: ESCITALOPRAM OXALATE (10 MG) 10 MG TABLET PO SCH (09:02)
[2021-12-11] MEDS: CLOPIDOGREL BISULFATE 75 MG TABLET PO SCH (09:02)
[2021-12-11] MEDS: CHOLECALCIFEROL 1,000 UNIT TABLET (VIT D3) PO SCH (09:02)
[2021-12-11] MEDS: CALCIUM ACETATE 667 MG CAP/TAB PO SCH ×3 (09:02→17:01)
[2021-12-11] MEDS: ASCORBIC ACID 500 MG TABLET PO SCH (09:02)
[2021-12-11 16:03] VITALS: BP 103/57
--- NOTE | 2021-12-11 19:53 | NUR ---
RN CLOSING NOTES Patient lying in bed, no SOB, respirations even and unlabored, no apparent distress noted, no dizziness, no palpitations, no chest pain. All due medications given per MD order, tolerating well. No s/s of hypo or hyperglycemia, no tremors, no change in level of consciousness. All needs attended, kept clean and dry, call light left within reach, safety precautions in place, frequent visual check rendered, brakes locked, side rails up X 2, will endorse to next shift for continuity of care.
[2021-12-11] MEDS: ZOLPIDEM TARTRATE 5 MG TABLET PO SCH (23:00)
[2021-12-11] MEDS: ATORVASTATIN 10 MG TABLET PO SCH (23:00)
[2021-12-11] MEDS: INSULIN REGULAR, HUMAN 100 UNIT/ML 3 ML VIAL SQ PRN (23:03)
[2021-12-11] MEDS: INSULIN GLARGINE, 100 UNIT/ML CARTRIDGE SQ SCH (23:03)
[2021-12-11] MEDS: ALBUTEROL FS 2.5 MG/3 ML VIAL.NEB NEB PRN (23:30)
[2021-12-12] MEDS: AMPICILLIN 2 GM in IV NS 0.9% 100 ML IV SCH ×2 (03:25→16:03)
[2021-12-12 07:09] LABS: CALCIUM, SERUM 8.4 mg/dL (8.5-10.1); POTASSIUM 4.2 mmol/L (3.5-5.1)
[2021-12-12 07:13] LABS: BASOPHILS % (AUTO) 0.7 % (0.0-2.0); EOSINOPHILS % (AUTO) 1.8 % (0.0-6.0); HEMATOCRIT 29 % (33-45); HEMOGLOBIN 9.3 g/dL (11.5-14.8); LYMPHOCYTES # (AUTO) 1.3 K/uL (0.8-4.8); LYMPHOCYTES % (AUTO) 19.8 % (20.0-44.0); MEAN CORPUSCULAR HGB CONC 32 g/dl (31.0-36.0); MEAN CORPUSCULAR VOLUME 97 fL (82-100); MONOCYTES # (AUTO) 0.6 K/uL (0.1-1.30); MONOCYTES % (AUTO) 9.3 % (2.0-12.0); NEUTROPHILS # (AUTO) 4.4 K/uL (1.8-8.9); NEUTROPHILS % (AUTO) 68.4 % (43.0-81.0); PLATELET COUNT (AUTO) 138 K/uL (150-450); RED BLOOD CELL COUNT(AUTO) 2.97 MIL/uL (4.0-5.2); WHITE BLOOD COUNT (AUTO) 6.4 K/uL (4.3-11.0)
--- NOTE | 2021-12-12 07:30 | NUR ---
MS RN CLOSING NOTE PATIENT AWAKE IN BED, ALERT/ORIENTED X 3, PT ABLE TO MAKE NEEDS KNOWN. PT STABLE ON 3 L OF OXYGEN VIA NC, NO S/S OF DISTRESS OR SOB NOTED, BREATHING EVEN AND UNLABORED. NO SIGNIFICANT CHANGES THROUGHOUT SHIFT. MEDICATIONS GIVEN ORDERED, PT NEEDS MET, WOUND CARE PERFORMED. SAFETY MEASURES IN PLACE: CALL LIGHT WITHIN REACH, SIDE RAILS UP X 2, BED LOCKED IN LOW POSITION, BED ALARM ON. ENDORSED TO DAY SHIFT NURSE FOR CONTINUITY OF CARE
--- NOTE | 2021-12-12 07:37 | NUR ---
RN OPENING NOTES Patient seen comfortably lying in bed, no apparent distress noted, respirations even and unlabored, no SOB, no grimacing. Call light left within reach, safety precautions in place, brakes locked, side rails up X 2, will monitor closely for any changes.
[2021-12-12] MEDS: BLOOD SUGAR DIAGNOSTIC 1 EACH STRIP IN SCH ×4 (08:01→23:14)
[2021-12-12] MEDS: INSULIN REGULAR, HUMAN 100 UNIT/ML 3 ML VIAL SQ PRN ×5 (08:04→23:18)
[2021-12-12] MEDS: ASCORBIC ACID 500 MG TABLET PO SCH (08:09)
[2021-12-12] MEDS: ZINC SULFATE 220 MG CAPSULE PO SCH (08:09)
[2021-12-12] MEDS: CALCIUM ACETATE 667 MG CAP/TAB PO SCH ×3 (08:09→18:02)
[2021-12-12] MEDS: PANTOPRAZOLE 40 MG TABLET.DR PO SCH (08:09)
[2021-12-12] MEDS: ALPRAZOLAM 0.5 MG TABLET PO PRN (08:09)
[2021-12-12] MEDS: CLOPIDOGREL BISULFATE 75 MG TABLET PO SCH (08:10)
[2021-12-12] MEDS: ESCITALOPRAM OXALATE (10 MG) 10 MG TABLET PO SCH (08:10)
[2021-12-12] MEDS: ASPIRIN EC 81 MG TABLET.DR PO SCH (08:10)
[2021-12-12] MEDS: CHOLECALCIFEROL 1,000 UNIT TABLET (VIT D3) PO SCH (08:10)
[2021-12-12] MEDS: HEPARIN SODIUM, PORCINE 5000 UNITS/1 ML VIAL SQ SCH ×2 (08:10→22:00)
[2021-12-12 08:29] VITALS: BP 104/44
[2021-12-12] MEDS: HYDROCODONE/APAP 5/325MG TABLET PO PRN ×2 (09:26→23:14)
[2021-12-12] MEDS: ALBUTEROL FS 2.5 MG/3 ML VIAL.NEB NEB PRN (16:00)
[2021-12-12 16:02] VITALS: BP 97/46
--- NOTE | 2021-12-12 19:50 | NUR ---
RN CLOSING NOTES Patient lying in bed, no SOB, respirations even and unlabored, no apparent distress noted, no dizziness, no palpitations, no chest pain, pain medication and anti-anxiety medication given when non pharmacological measures ineffective. All due medications given per MD order, tolerating well. No s/s of hypo or hyperglycemia, no tremors, no change in level of consciousness, insulin given per MD order as needed. All needs attended, kept clean and dry, call light left within reach, safety precautions in place, frequent visual check rendered, brakes locked, side rails up X 2, will endorse to next shift for continuity of care.
[2021-12-12 20:00] VITALS: BP 96/45
[2021-12-12] MEDS: ATORVASTATIN 10 MG TABLET PO SCH (21:56)
[2021-12-12] MEDS: ZOLPIDEM TARTRATE 5 MG TABLET PO SCH (21:58)
[2021-12-12] MEDS: INSULIN GLARGINE, 100 UNIT/ML CARTRIDGE SQ SCH (23:17)
[2021-12-13] MEDS: AMPICILLIN 2 GM in IV NS 0.9% 100 ML IV SCH ×2 (03:25→14:37)
[2021-12-13] MEDS: BLOOD SUGAR DIAGNOSTIC 1 EACH STRIP IN SCH ×4 (07:06→23:04)
[2021-12-13] MEDS: INSULIN REGULAR, HUMAN 100 UNIT/ML 3 ML VIAL SQ PRN ×3 (07:12→23:07)
--- NOTE | 2021-12-13 07:29 | NUR ---
MS RN CLOSING NOTE PATIENT SLEEPING IN BED, EASILY AWAKENED, ALERT/ORIENTED X 3, PT ABLE TO MAKE NEEDS KNOWN. PT STABLE ON 3 L OF OXYGEN VIA NC, NO S/S OF DISTRESS OR SOB NOTED, BREATHING EVEN AND UNLABORED. NO SIGNIFICANT CHANGES THROUGHOUT SHIFT. MEDICATIONS GIVEN ORDERED, PT NEEDS MET. PATIENT TURNED Q2H, WOUND CARE PERFORMED, PHOTOS OF WOUNDS TAKEN AND PLACED IN CHART. SAFETY MEASURES IN PLACE: CALL LIGHT WITHIN REACH, SIDE RAILS UP X 2, BED LOCKED IN LOW POSITION, BED ALARM ON. ENDORSED TO DAY SHIFT NURSE FOR CONTINUITY OF CARE
[2021-12-13 07:45] LABS: BASOPHILS % (AUTO) 0.7 % (0.0-2.0); EOSINOPHILS % (AUTO) 1.7 % (0.0-6.0); HEMATOCRIT 29 % (33-45); HEMOGLOBIN 9.3 g/dL (11.5-14.8); LYMPHOCYTES # (AUTO) 1.5 K/uL (0.8-4.8); LYMPHOCYTES % (AUTO) 22.5 % (20.0-44.0); MEAN CORPUSCULAR HGB CONC 32 g/dl (31.0-36.0); MEAN CORPUSCULAR VOLUME 97 fL (82-100); MONOCYTES # (AUTO) 0.6 K/uL (0.1-1.30); MONOCYTES % (AUTO) 9.4 % (2.0-12.0); NEUTROPHILS # (AUTO) 4.3 K/uL (1.8-8.9); NEUTROPHILS % (AUTO) 65.7 % (43.0-81.0); PLATELET COUNT (AUTO) 137 K/uL (150-450); RED BLOOD CELL COUNT(AUTO) 2.99 MIL/uL (4.0-5.2); WHITE BLOOD COUNT (AUTO) 6.6 K/uL (4.3-11.0)
--- NOTE | 2021-12-13 07:54 | NUR ---
RN OPENING NOTE Patient in bed, asleep. A/O x 4. On O2 at 3 LPM via NC, breathing evenly and unlabored. No SOB or s/s of distress noted. IV access on RFA #20G, SL intact and patent. Left arm shunt present. Safety precautions in place: bed in low, locked position; siderails up x 2; call light within reach. Will continue to monitor.
[2021-12-13 07:58] LABS: CREATININE 6.8 mg/dL (0.6-1.3); POTASSIUM 4.7 mmol/L (3.5-5.1)
[2021-12-13 08:33] VITALS: BP 84/49
[2021-12-13] MEDS: ZINC SULFATE 220 MG CAPSULE PO SCH (08:37)
[2021-12-13] MEDS: ASPIRIN EC 81 MG TABLET.DR PO SCH (08:37)
[2021-12-13] MEDS: CALCIUM ACETATE 667 MG CAP/TAB PO SCH ×3 (08:37→17:10)
[2021-12-13] MEDS: CHOLECALCIFEROL 1,000 UNIT TABLET (VIT D3) PO SCH (08:37)
[2021-12-13] MEDS: CLOPIDOGREL BISULFATE 75 MG TABLET PO SCH (08:37)
[2021-12-13] MEDS: PANTOPRAZOLE 40 MG TABLET.DR PO SCH (08:37)
[2021-12-13] MEDS: ASCORBIC ACID 500 MG TABLET PO SCH (08:37)
[2021-12-13] MEDS: ESCITALOPRAM OXALATE (10 MG) 10 MG TABLET PO SCH (08:37)
[2021-12-13] MEDS: HEPARIN SODIUM, PORCINE 5000 UNITS/1 ML VIAL SQ SCH ×2 (08:39→21:29)
[2021-12-13] MEDS: HYDROCODONE/APAP 5/325MG TABLET PO PRN ×3 (11:46→21:30)
--- NOTE | 2021-12-13 12:00 | NUR ---
RN NOTE Patient BS is 157, gave 2 units of Insulin per sliding scale.
--- NOTE | 2021-12-13 13:30 | NUR ---
RN NOTE Patient complained of pain on her sacrum 05/22, PRN [place] given. Will continue to monitor patient.
--- NOTE | 2021-12-13 15:54 | NUR ---
RN NOTE Patient complained of pain on her sacrum 05/22, PRN [place] given. Will continue to monitor patient.
[2021-12-13 15:59] VITALS: BP_SYST 92; BP_SYST 93; BP_DIAS 48; BP_DIAS 61
[2021-12-13] MEDS: ALBUMIN 25% 25 GM in PREMIX 1 EA IV PRN (16:43)
--- NOTE | 2021-12-13 18:00 | NUR ---
RN NOTE Patient BS is 105, no Insulin coverage needed.
--- NOTE | 2021-12-13 18:55 | NUR ---
RN CLOSING NOTE Patient in bed, resting A/O x 4. On O2 at 3 LPM via NC, breathing evenly and unlabored. No SOB or s/s of distress noted. IV access on RFA #20G, SL intact and patent. Left arm shunt present. Wound care done, as ordered. All needs attended to. due meds given. Safety precautions maintained: bed in low, locked position; siderails up x 2; call light within reach. Will endorse to film processing shift supervisor nurse for RENATO.
[2021-12-13 20:00] VITALS: BP 82/38
[2021-12-13] MEDS: MIDODRINE HCL (5MG) 5 MG TABLET PO PRN (21:11)
--- NOTE | 2021-12-13 21:11 | NUR ---
MS RN NOTE IT WAS ENDORSED TO ME THAT PATIENT'S BP HAS BEEN RUNNING LOW. BP TAKEN BY HOUSEHOLD MANAGER WAS 70/40. WHEN I PERSONALLY CHECKED IT WAS 82/38. HR-99. CALLED [facility] DOCTOR, KAYCE NOBLE AND DOCTOR ORDERED MIDODRINE 5MG PO Q8HRS PRN. READ BACK ORDER. ORDER CARRIED OUT.
[2021-12-13] MEDS: ATORVASTATIN 10 MG TABLET PO SCH (21:30)
[2021-12-13] MEDS: ZOLPIDEM TARTRATE 5 MG TABLET PO SCH (22:55)
[2021-12-13] MEDS: INSULIN GLARGINE, 100 UNIT/ML CARTRIDGE SQ SCH (23:05)
--- NOTE | 2021-12-13 23:47 | NUR ---
MS RN OPENING NOTE RECEIVED PATIENT IN BED. A/OX4. NO S/S OF APPARENT DISTRESS ON 3LPM OF O2 VIA NC. NO C/O PAIN AT THIS TIME. RFA #20G IN SALINE LOCK. L. ARM NOTED TO HAVE AV SHUNT -- BRUIT AND THRILLED FELT AND AUSCULTATED. SAFETY IN PLACE. WILL CONTINUE WITH PATIENT'S CARE PLAN.
[2021-12-14] MEDS: AMPICILLIN 2 GM in IV NS 0.9% 100 ML IV SCH ×2 (03:13→14:07)
--- NOTE | 2021-12-14 05:03 | NUR ---
PATIENT BP 86/37 THIS AM. WILL CONTINUE TO MONITOR.
[2021-12-14] MEDS: BLOOD SUGAR DIAGNOSTIC 1 EACH STRIP IN SCH ×4 (06:41→22:06)
[2021-12-14] MEDS: INSULIN REGULAR, HUMAN 100 UNIT/ML 3 ML VIAL SQ PRN ×4 (06:53→22:09)
[2021-12-14] MEDS: MIDODRINE HCL (5MG) 5 MG TABLET PO PRN (06:59)
[2021-12-14 07:23] LABS: BASOPHILS % (AUTO) 0.7 % (0.0-2.0); EOSINOPHILS % (AUTO) 1.3 % (0.0-6.0); HEMATOCRIT 30 % (33-45); HEMOGLOBIN 9.4 g/dL (11.5-14.8); LYMPHOCYTES # (AUTO) 1.5 K/uL (0.8-4.8); LYMPHOCYTES % (AUTO) 21.7 % (20.0-44.0); MEAN CORPUSCULAR HGB CONC 32 g/dl (31.0-36.0); MEAN CORPUSCULAR VOLUME 99 fL (82-100); MONOCYTES # (AUTO) 0.7 K/uL (0.1-1.30); MONOCYTES % (AUTO) 9.9 % (2.0-12.0); NEUTROPHILS # (AUTO) 4.7 K/uL (1.8-8.9); NEUTROPHILS % (AUTO) 66.4 % (43.0-81.0); PLATELET COUNT (AUTO) 141 K/uL (150-450); RED BLOOD CELL COUNT(AUTO) 3.02 MIL/uL (4.0-5.2)
--- NOTE | 2021-12-14 07:30 | NUR ---
MS RN OPENING NOTES RECEIVED PATIENT ON BED RESTING AND A/O X4. ON O2 AT 3LPM VIA NASAL CANNULA TOLERATING WELL. NO SOB NOTED. NOT IN DISTRESS. WITH IV ACCESS AT RIGHT FOREARM G20 SALINE LOCKED, PATENT AND INTACT. WITH LEFT ARM SHUNT FOR HEMODIALYSIS WITH DRESSING DRY AND INTACT. SAFETY MEASURES IN PLACED, CALL LIGHT WITHIN REACH. BED ON LOWEST LOCKED POSITION, SIDE RAILS UP X2. WILL CONTINUE TO MONITOR.
--- NOTE | 2021-12-14 07:36 | NUR ---
MS RN CLOSING NO SIGNIFICANT CHANGE SINCE LAST ENDORSEMENT. REPORT GIVEN TO JAME FOR CONTINUITY OF CARE.
[2021-12-14 07:59] LABS: CALCIUM, SERUM 8.8 mg/dL (8.5-10.1); CREATININE 7.1 mg/dL (0.6-1.3); POTASSIUM 5.2 mmol/L (3.5-5.1)
[2021-12-14] MEDS: CLOPIDOGREL BISULFATE 75 MG TABLET PO SCH (08:33)
[2021-12-14] MEDS: CALCIUM ACETATE 667 MG CAP/TAB PO SCH ×3 (08:33→17:48)
[2021-12-14] MEDS: CHOLECALCIFEROL 1,000 UNIT TABLET (VIT D3) PO SCH (08:33)
[2021-12-14] MEDS: ASCORBIC ACID 500 MG TABLET PO SCH (08:33)
[2021-12-14] MEDS: ZINC SULFATE 220 MG CAPSULE PO SCH (08:34)
[2021-12-14] MEDS: ASPIRIN EC 81 MG TABLET.DR PO SCH (08:34)
[2021-12-14] MEDS: ESCITALOPRAM OXALATE (10 MG) 10 MG TABLET PO SCH (08:34)
[2021-12-14] MEDS: HEPARIN SODIUM, PORCINE 5000 UNITS/1 ML VIAL SQ SCH ×2 (08:34→20:40)
[2021-12-14] MEDS: PANTOPRAZOLE 40 MG TABLET.DR PO SCH (08:35)
[2021-12-14 08:43] VITALS: BP 110/60
[2021-12-14] MEDS: HYDROCORTISONE SOD SUCCINATE 100 MG/2 ML VIAL IV SCH ×3 (11:45→20:25)
[2021-12-14] MEDS: HYDROCODONE/APAP 5/325MG TABLET PO PRN ×2 (12:57→23:51)
[2021-12-14] MEDS: ONDANSETRON HCL/PF 4 MG/2 ML VIAL IVP PRN (14:58)
[2021-12-14 16:07] VITALS: BP 113/59
--- NOTE | 2021-12-14 18:30 | NUR ---
MS RN CLOSING NOTES PATIENT ON BED RESTING AND A/O X4. ON O2 AT 3LPM VIA NASAL CANNULA TOLERATING WELL. NO SOB NOTED. NOT IN DISTRESS. WITH IV ACCESS AT RIGHT FOREARM G20 SALINE LOCKED, PATENT AND INTACT. WITH LEFT ARM SHUNT FOR HEMODIALYSIS WITH DRESSING DRY AND INTACT. SAFETY MEASURES IN PLACED, CALL LIGHT WITHIN REACH. BED ON LOWEST LOCKED POSITION, SIDE RAILS UP X2. WILL ENDORSE TO NEXT SHIFT FOR RENATO.
[2021-12-14 20:00] VITALS: BP 109/53
[2021-12-14] MEDS: ZOLPIDEM TARTRATE 5 MG TABLET PO SCH (21:59)
[2021-12-14] MEDS: ATORVASTATIN 10 MG TABLET PO SCH (21:59)
[2021-12-14] MEDS: INSULIN GLARGINE, 100 UNIT/ML CARTRIDGE SQ SCH (22:09)
[2021-12-14] MEDS: GUAIFENESIN/CODEINE 10 ML UDC PO PRN (23:51)
[2021-12-15] MEDS: ALBUTEROL FS 2.5 MG/3 ML VIAL.NEB NEB PRN ×3 (00:49→21:19)
[2021-12-15] MEDS: AMPICILLIN 2 GM in IV NS 0.9% 100 ML IV SCH ×2 (02:21→14:03)
[2021-12-15] MEDS: HYDROCORTISONE SOD SUCCINATE 100 MG/2 ML VIAL IV SCH ×3 (04:43→21:03)
--- NOTE | 2021-12-15 06:26 | NUR ---
Patient has been A&Ox3 overnight. Did c/o of lower back pain x1 that was relieved with repositioning and PRN [place]. Also, had episode of coughing with SOB relieved by PRN guaifenesin-codeine cough syrup and PRN breathing treatment given by RT. O2 saturation has been high 90s to 100. SHELLY #20G intact and patent, SILVANO AVF +bruit and thrill, dressing c/d/i. No s/s of hypo or hyperglycemic reactions noted. Had 1 small BM brown and soft. Patient is anuric. No ase from IV ABX. Currently awake in bed in no signs of distress.
[2021-12-15] MEDS: BLOOD SUGAR DIAGNOSTIC 1 EACH STRIP IN SCH ×4 (06:39→21:03)
[2021-12-15] MEDS: INSULIN REGULAR, HUMAN 100 UNIT/ML 3 ML VIAL SQ PRN ×3 (06:41→22:09)
[2021-12-15] MEDS: PANTOPRAZOLE 40 MG TABLET.DR PO SCH (07:30)
--- NOTE | 2021-12-15 07:30 | NUR ---
MS RN OPENING NOTES RECEIVED PATIENT ON BED RESTING AND A/O X4. ON O2 AT 3LPM VIA NASAL CANNULA TOLERATING WELL. NO SOB NOTED. NOT IN DISTRESS. WITH IV ACCESS AT RIGHT FOREARM G20 SALINE LOCKED, PATENT AND INTACT. WITH LEFT ARM SHUNT FOR HEMODIALYSIS AND ON ONGOING HEMODIALYSIS. SAFETY MEASURES IN PLACED, CALL LIGHT WITHIN REACH. BED ON LOWEST LOCKED POSITION, SIDE RAILS UP X2. WILL CONTINUE TO MONITOR.
[2021-12-15 08:00] VITALS: BP 99/49
[2021-12-15] MEDS: CALCIUM ACETATE 667 MG CAP/TAB PO SCH ×3 (08:00→18:00)
[2021-12-15] MEDS: ASPIRIN EC 81 MG TABLET.DR PO SCH (09:00)
[2021-12-15] MEDS: CLOPIDOGREL BISULFATE 75 MG TABLET PO SCH (09:00)
[2021-12-15] MEDS: ESCITALOPRAM OXALATE (10 MG) 10 MG TABLET PO SCH (09:00)
[2021-12-15] MEDS: ZINC SULFATE 220 MG CAPSULE PO SCH (09:00)
[2021-12-15] MEDS: CHOLECALCIFEROL 1,000 UNIT TABLET (VIT D3) PO SCH (09:00)
[2021-12-15] MEDS: ASCORBIC ACID 500 MG TABLET PO SCH (09:00)
[2021-12-15] MEDS: MIDODRINE HCL (5MG) 5 MG TABLET PO PRN (12:30)
[2021-12-15] MEDS: ALPRAZOLAM 0.5 MG TABLET PO PRN (14:31)
[2021-12-15 16:00] VITALS: BP 102/79
--- NOTE | 2021-12-15 17:10 | NUR ---
RT NOTE ABG DONE PER MD ORDER. NO CHANGES AT THIS TIME. CONNIE CANDELARIO RN AWARE.
[2021-12-15] MEDS ORDERED: LORAZEPAM INJ 2 MG/ML VIAL IV PRN (18:30)
--- NOTE | 2021-12-15 19:30 | NUR ---
MS RN CLOSING NOTES PATIENT ON BED RESTING AND A/O X4. ON O2 AT 3LPM VIA NASAL CANNULA TOLERATING WELL. NO SOB NOTED. NOT IN DISTRESS. WITH IV ACCESS AT RIGHT FOREARM G20 SALINE LOCKED, PATENT AND INTACT. WITH LEFT ARM SHUNT FOR HEMODIALYSIS WITH DRESSING DRY AND INTACT. S/P HEMODIALYSIS BUT PARTIALLY DONE DUE TO LOW BLOOD PRESSURE. SAFETY MEASURES IN PLACED, CALL LIGHT WITHIN REACH. BED ON LOWEST LOCKED POSITION, SIDE RAILS UP X2. WILL ENDORSE TO NEXT SHIFT FOR RENATO
[2021-12-15 20:00] VITALS: BP 97/57
[2021-12-15] MEDS: ATORVASTATIN 10 MG TABLET PO SCH (21:03)
[2021-12-15] MEDS: ZOLPIDEM TARTRATE 5 MG TABLET PO SCH ×2 (21:03→22:00)
[2021-12-15] MEDS: INSULIN GLARGINE, 100 UNIT/ML CARTRIDGE SQ SCH (22:08)
[2021-12-16] MEDS: ZOLPIDEM TARTRATE 5 MG TABLET PO SCH (00:47)
[2021-12-16] MEDS: ALBUTEROL FS 2.5 MG/3 ML VIAL.NEB NEB PRN ×2 (00:58→12:41)
--- NOTE | 2021-12-16 01:26 | NUR ---
MS RN NOTES PT C/O SOB. ABG DONE. PH 7.241 PCO2 36.2 PO2 104.8 HCO3 15.2. MD NOTIFIED OF ABG RESULTS. WITH NEW ORDERS TO DO STAT CXR. ORDERS NOTED AND CARRIED OUT. WILL CONTINUE TO MONITOR. REHABILITATION SERVICES AIDE AWARE.
[2021-12-16] MEDS: AMPICILLIN 2 GM in IV NS 0.9% 100 ML IV SCH (04:00)
[2021-12-16] MEDS: HYDROCORTISONE SOD SUCCINATE 100 MG/2 ML VIAL IV SCH ×2 (05:02→12:20)
[2021-12-16] MEDS: BLOOD SUGAR DIAGNOSTIC 1 EACH STRIP IN SCH ×3 (06:30→17:49)
[2021-12-16] MEDS: INSULIN REGULAR, HUMAN 100 UNIT/ML 3 ML VIAL SQ PRN (07:05)
[2021-12-16 08:00] VITALS: BP 134/75
--- NOTE | 2021-12-16 08:00 | NUR ---
ms rn received on bed, lethargic,not looking good, called dr. singh, v/s stable,abg stat done waiting for result.
--- NOTE | 2021-12-16 09:00 | NUR ---
ms rn abg normal no transferring to icu at this time.will monitor patient,patient needs hd stat, hd company called left message,will monitor patient.
--- NOTE | 2021-12-16 09:27 | NUR ---
oxygen flow decreased from 4lpm to 2 lpm due to 133 pao2 and 100% spo2. Addendum: 12/16/21 at 0928 by KWAKU BEDOYA RT Amended: Links added.
--- NOTE | 2021-12-16 10:00 | NUR ---
ms rn was seen by dr kody barone/ orders made and carried out.
[2021-12-16] MEDS: ZINC SULFATE 220 MG CAPSULE PO SCH (10:13)
[2021-12-16] MEDS: ASCORBIC ACID 500 MG TABLET PO SCH (10:13)
[2021-12-16] MEDS: PANTOPRAZOLE 40 MG TABLET.DR PO SCH (10:13)
[2021-12-16] MEDS: ESCITALOPRAM OXALATE (10 MG) 10 MG TABLET PO SCH (10:13)
[2021-12-16] MEDS: ASPIRIN EC 81 MG TABLET.DR PO SCH (10:14)
[2021-12-16] MEDS: CHOLECALCIFEROL 1,000 UNIT TABLET (VIT D3) PO SCH (10:14)
[2021-12-16] MEDS: CALCIUM ACETATE 667 MG CAP/TAB PO SCH ×3 (10:14→17:51)
[2021-12-16] MEDS: CLOPIDOGREL BISULFATE 75 MG TABLET PO SCH (10:14)
[2021-12-16 11:08] LABS: ABG BASE EXCESS -9.1 mmol/L; ABG OXYGEN SATURATION 97.1 % (92.0-98.5); ABG PCO2 39.2 mmHg (35.0-45.0); ABG PH 7.262 (7.350-7.450); ABG PO2 102.7 mmHg (75.0-100.0); AaDO2 108.5 mmHg; COHb 0.8 % (0.5-1.5); MetHb 0.1 % (0.0-1.5); O2Hb 96.2 % (94.0-97.0); SITE, ABG Right Radial
[2021-12-16] MEDS: MIDODRINE HCL (5MG) 5 MG TABLET PO PRN (11:18)
[2021-12-16 11:22] LABS: ABG BASE EXCESS -11.3 mmol/L; ABG OXYGEN SATURATION 97.1 % (92.0-98.5); ABG PCO2 36.2 mmHg (35.0-45.0); ABG PH 7.241 (7.350-7.450); ABG PO2 104.8 mmHg (75.0-100.0); AaDO2 109.9 mmHg; COHb 0.7 % (0.5-1.5); O2Hb 96.4 % (94.0-97.0); SITE, ABG Right Radial; VENT MODE, BG Nasal Cannula
[2021-12-16 11:34] LABS: ABG BASE EXCESS -7.4 mmol/L; ABG OXYGEN SATURATION 98.4 % (92.0-98.5); ABG PH 7.325 (7.350-7.450); ABG PO2 132.6 mmHg (75.0-100.0); AaDO2 83.5 mmHg; COHb 0.6 % (0.5-1.5); MetHb 0.1 % (0.0-1.5); O2Hb 97.7 % (94.0-97.0); SITE, ABG Right Brachial; VENT MODE, BG nasal cannula
[2021-12-16] MEDS: ALPRAZOLAM 0.5 MG TABLET PO PRN (12:20)
--- NOTE | 2021-12-16 12:30 | NUR ---
ms rn blood sugar - 144- refused coverage.
--- NOTE | 2021-12-16 13:00 | NUR ---
ms demetrio hd sytarted ,still low b/p, will monitor patient.
[2021-12-16] MEDS ORDERED: AMPICILLIN 2 GM in IV NS 0.9% 100 ML IV SCH (15:00)
--- NOTE | 2021-12-16 15:00 | NUR ---
ms rn palliative care wants to do ama after hd. kody was aware.
[2021-12-16 16:00] VITALS: BP 130/64
--- NOTE | 2021-12-16 17:30 | NUR ---
ms demetrio sun done patinnet will be given atb then go ama.
[2021-12-16] MEDS: ALBUMIN 25% 25 GM in PREMIX 1 EA IV PRN ×2 (17:59→18:00)
--- NOTE | 2021-12-16 18:40 | NUR ---
ms demetrio javed went ama,all needs attended.
== END 2021-12-16 19:00 | disposition left against medical advice (07) | DRG 721 ==
LOC: ER 13:27 → TRANSITION 12-07 04:21 → TELE 12-07 08:51 → MED 12-08 09:00
PROVIDERS: ADMIT Student in an Organized Health Care Education/Training Program; ATTEND Internal Medicine
PROC: 5A1D70Z Performance of Urinary Filtration, Intermittent, Less than 6 Hours Per Day (ICD-10-PCS; principal; 2021-12-08)
PROC: 05PYX3Z Removal of Infusion Device from Upper Vein, External Approach (ICD-10-PCS; 2021-12-10)
DX: T80.211A Bloodstream infection due to central venous catheter, initial encounter (principal); A41.81 Sepsis due to Enterococcus; I21.4 Non-ST elevation (NSTEMI) myocardial infarction; E44.0 Moderate protein-calorie malnutrition; D68.59 Other primary thrombophilia; D69.6 Thrombocytopenia, unspecified; D63.8 Anemia in other chronic diseases classified elsewhere; E27.40 Unspecified adrenocortical insufficiency; J18.9 Pneumonia, unspecified organism; I13.2 Hypertensive heart and chronic kidney disease with heart failure and with stage 5 chronic kidney disease, or end stage renal disease; L89.159 Pressure ulcer of sacral region, unspecified stage; E87.1 Hypo-osmolality and hyponatremia; N18.6 End stage renal disease; I50.9 Heart failure, unspecified; I48.91 Unspecified atrial fibrillation; Z20.822 Contact with and (suspected) exposure to COVID-19; I25.10 Atherosclerotic heart disease of native coronary artery without angina pectoris; Z99.2 Dependence on renal dialysis; Z98.84 Bariatric surgery status; E11.22 Type 2 diabetes mellitus with diabetic chronic kidney disease; E11.65 Type 2 diabetes mellitus with hyperglycemia; E78.5 Hyperlipidemia, unspecified; Z79.82 Long term (current) use of aspirin; Z79.02 Long term (current) use of antithrombotics/antiplatelets; Z79.4 Long term (current) use of insulin; Z79.899 Other long term (current) drug therapy; E87.2 Acidosis; Z68.43 Body mass index [BMI] 50.0-59.9, adult; E66.01 Morbid (severe) obesity due to excess calories; F17.210 Nicotine dependence, cigarettes, uncomplicated; Z74.09 Other reduced mobility; I42.9 Cardiomyopathy, unspecified; J90 Pleural effusion, not elsewhere classified; G47.33 Obstructive sleep apnea (adult) (pediatric); F32.A Depression, unspecified; L98.9 Disorder of the skin and subcutaneous tissue, unspecified; Z82.49 Family history of ischemic heart disease and other diseases of the circulatory system; Z83.3 Family history of diabetes mellitus
CPT/HCPCS: 36415; 36600; 71045-TC; 80048-TC; 80061-TC; 80076-TC; 80202-TC; 82533; 82803-TC; 82962-TC; 83605-TC; 83735-TC; 84100-TC; 84484-TC; 85025-TC; 85730-TC; 86704; 86705; 86706; 86803; 87040-TC; 87070-TC; 87081-TC; 87186-TC; 87340; 90935-TC; 92526; 92611-TC; 93307-TC; 94799-TC; 97110-TC; 97112-TC; 97530-TC; A4216; A6253; A6403; A6407; C9803; G0378; J0290; J0696; J0885; J1644; J1720; J1815; J2405; J3370; J3490; J7030; J7040; J7042; J7050; J7060; P9047